=== PATIENT | female | born 1965 | race Two or more races ===

== ENCOUNTER 2021-12-12 11:46 | Emergency (ER) | payer MEDICAID, OTHER ==
[~2021-12-12] VITALS: Ht 162.6 cm; Wt 110.0 kg
[2021-12-12 12:42] LABS: Basophils # (auto) 0 10 ^3/uL (0-0.2); Basophils % (auto) 0.5 % (0.0-2.0); Eosinophils # (auto) 0.2 10 ^3/uL (0-0.8); Hematocrit 40.4 % (36.0-46.0); Hemoglobin 12.7 g/dL (12.2-16.2); Lymphocytes # (auto) 2.5 10 ^3/uL (0.4-5.4); Lymphocytes % (auto) 30.7 % (10.0-50.0); Mean Corpuscular Hemoglobin 27.5 pg (28.0-32.0); Mean Corpuscular Hgb Conc. 31.4 g/dL (32.0-36.0); Mean Corpuscular Volume 87.7 fL (80.0-100.0); Monocytes # (auto) 0.5 10 ^3/uL (0-1.3); Monocytes % (auto) 6.1 % (0.0-12.0); Neutrophils # (auto) 4.9 10 ^3/uL (1.6-8.6); Neutrophils % (auto) 60.7 % (37.0-80.0); Nucleated Red Blood Cells % 0.1 %; Red Cell Distribution Width 14.4 % (11.8-14.3)
[2021-12-12 13:05] LABS: Calcium 8.2 mg/dL (8.5-10.1)
[2021-12-12 13:18] LABS: BUN/Creatinine Ratio 15.2; Bilirubin, Total 0.3 mg/dL (0.2-1.0); Total Protein 6.3 g/dL (6.4-8.2)
[2021-12-12 14:28] VITALS: BP 138/80
== END 2021-12-12 14:37 | disposition home or self-care (01) ==
LOC: ER 11:46
DX: I16.0 Hypertensive urgency (principal); I10 Essential (primary) hypertension; E11.9 Type 2 diabetes mellitus without complications; E78.5 Hyperlipidemia, unspecified; R51.9 Headache, unspecified
CPT/HCPCS: 36415; 70450; 71046; 80053; 83735; 84484; 85025; 93005

== ENCOUNTER 2022-06-17 13:06 | Emergency (ER) | payer MEDICAID ==
[~2022-06-17] VITALS: Ht 144.8 cm; Wt 117.5 kg
[2022-06-17] MEDS ORDERED: KETOROLAC TROMETH 60MG/2ML VIAL IM ONE (14:30)
[2022-06-17] MEDS ORDERED: MAALOX PLUS or MAALOX 30 ML PO ONE (14:30)
[2022-06-17] MEDS ORDERED: IBUP800T26 PO (15:44)
[2022-06-17] MEDS ORDERED: HYDR-4902 PO (15:44)
[2022-06-17 15:57] VITALS: BP 140/65
== END 2022-06-17 15:59 | disposition home or self-care (01) ==
LOC: ER 13:06
DX: M47.816 Spondylosis without myelopathy or radiculopathy, lumbar region (principal); M47.814 Spondylosis without myelopathy or radiculopathy, thoracic region; I10 Essential (primary) hypertension; E11.9 Type 2 diabetes mellitus without complications; E78.5 Hyperlipidemia, unspecified; Z90.49 Acquired absence of other specified parts of digestive tract
CPT/HCPCS: 72070; 72100; 96372; 99284; J1885

== ENCOUNTER 2022-08-29 20:04 | Emergency (ER) | payer MEDICAID ==
[~2022-08-29] VITALS: Ht 134.6 cm; Wt 120.0 kg
[~2022-08-29 20:04] MED LIST: HYDR-4902 PO; IBUP-1455 PO
[2022-08-29 20:43] LABS: Basophils # (auto) 0.1 10 ^3/uL (0-0.2); Basophils % (auto) 0.8 % (0.0-2.0); Eosinophils # (auto) 0.3 10 ^3/uL (0-0.8); Hematocrit 40.5 % (36.0-46.0); Hemoglobin 13.3 g/dL (12.2-16.2); Lymphocytes # (auto) 3.8 10 ^3/uL (0.4-5.4); Lymphocytes % (auto) 30.6 % (10.0-50.0); Mean Corpuscular Hgb Conc. 32.9 g/dL (32.0-36.0); Mean Corpuscular Volume 88.1 fL (80.0-100.0); Monocytes # (auto) 0.9 10 ^3/uL (0-1.3); Neutrophils # (auto) 7.3 10 ^3/uL (1.6-8.6); Neutrophils % (auto) 59.6 % (37.0-80.0); Red Cell Distribution Width 13.8 % (11.8-14.3); White Blood Cell 12.3 10^3/uL (4.4-10.8)
[2022-08-29 20:49] LABS: Albumin 3.2 g/dL (3.4-5.0); Calcium 8.9 mg/dL (8.5-10.1); Potassium 4.5 mmol/L (3.5-5.1)
[2022-08-29 20:52] LABS: BUN/Creatinine Ratio 21.8 (10.0-20.0); Bilirubin, Total 0.4 mg/dL (0.2-1.0); Total Protein 6.9 g/dL (6.4-8.2)
[2022-08-30] MEDS ORDERED: MECLIZINE HCL 25 MG TAB PO ONE (00:15)
[2022-08-30] MEDS ORDERED: KETOROLAC TROMETH 60MG/2ML VIAL IM ONE (00:15)
[2022-08-30 00:33] LABS: Urine Bacteria FEW /hpf (None Seen); Urine Blood 1+ /uL (Negative); Urine WBC 6 /hpf (0 - 5)
[2022-08-30] MEDS ORDERED: CEPH500C PO (02:37)
[2022-08-30] MEDS ORDERED: HYDROcodone-ACET 10/325MG TAB PO ONE (03:45)
[2022-08-30 04:15] VITALS: BP 126/70
[2022-08-30] MEDS ORDERED: MECL1TAB42 PO (06:18)
== END 2022-08-30 04:20 | disposition home or self-care (01) ==
LOC: EDBD 20:04 → ER 20:07
DX: N39.0 Urinary tract infection, site not specified (principal); R42 Dizziness and giddiness; Z87.442 Personal history of urinary calculi
CPT/HCPCS: 36415; 70450; 71250; 74176; 80053; 81001; 83690; 84484; 85025; 93005; 96372; 99285; J1885; J8597

== ENCOUNTER 2023-04-24 12:59 | Emergency (ER) | payer MEDICAID ==
[~2023-04-24] VITALS: Ht 134.6 cm; Wt 110.4 kg
[~2023-04-24 12:59] MED LIST changes: +CEPH500C PO; +MECL1TAB42 PO
[2023-04-24 13:47] VITALS: BP 139/85; PULSE 82; RESP 18; TEMP 97.3; O2SAT 96
[2023-04-24] MEDS ORDERED: ACET-1080 PO (15:32)
== END 2023-04-24 15:36 | disposition home or self-care (01) ==
LOC: ER 12:59
DX: S29.9XXA Unspecified injury of thorax, initial encounter (principal); E11.9 Type 2 diabetes mellitus without complications; E78.5 Hyperlipidemia, unspecified; I10 Essential (primary) hypertension; W22.8XXA Striking against or struck by other objects, initial encounter; Y93.89 Activity, other specified; Y92.89 Other specified places as the place of occurrence of the external cause; Y99.8 Other external cause status
CPT/HCPCS: 76642

== ENCOUNTER 2024-02-11 11:21 | Inpatient (IN) | payer MEDICAID ==
[~2024-02-11] VITALS: Ht 134.6 cm; Wt 117.5 kg
[~2024-02-11 11:21] MED LIST changes: +ACET-1080 PO
--- NOTE | 2024-02-11 11:44 | ED.PDOC ---
HPI Comments 58 year old female presents to the ED with chief complaint of chest pain. Patient reports that she has been experiencing chest pain for the past week with associated radiation to the back and nausea. Patient relays that she has not been able to ambulate well independently since 2014 due to her legs locking up, needing to mobilize with an electric wheelchair. Patient denies any N/V/D, SOB, dizziness, weakness, headache, or fever. Chief Complaint: Chest Pain Time Seen by MD: 11:40 Primary Care Provider: STEFFEN Shen Notes: Nurses Notes, Medications, Allergies Allergies: Coded Allergies: NO KNOWN ALLERGIES (Unverified , 12/12/21) Home Meds Active Scripts Acetaminophen (Tylenol 8 Hour Arthritis) 650 Mg Tab, 650 MG PO TID, #24 TAB Prov:OSITO MAYER 04/24/23 Meclizine HCl (Meclizine 25) 25 Mg Tab, 25 MG PO Q6HP PRN, #20 TAB 0 Refills Prov:JOSE TERAN MD 08/30/22 Cephalexin Monohydrate (Cephalexin) 500 Mg Cap, 500 MG PO Q6HR for 5 Days, #20 MG Prov:JOSE TERAN MD 08/30/22 Hydrocodone-Acetaminophen (Hydrocodone Bitartrate/AC 5-325 mg) 1 Tab Tab, 1 TAB PO Q6HP PRN, #20 TAB Prov:CHERRI LEMONS PAC 06/17/22 Ibuprofen Micronized (Ibuprofen) 800 Mg Tab, 800 MG PO Q8HP PRN, #30 TAB Prov:CHERRI LEMONS PAC 06/17/22 Information Source: Patient Mode of Arrival: Ambulatory Severity: Moderate Timing: Hours Duration: Since onset Prehospital treatment: None Location: Chest (L) Radiation: Back Quality: Aching Onset: At Rest Cardiac Risk Factors: Hyperlipidemia, HTN, Diabetes PE Risk Factors: None Past Medical History PAST MEDICAL HISTORY: DM, High Lipids, HTN Surgical History: Appendectomy TECHNICAL SYSTEMS ARCHITECT History: No Pertinent TECHNICAL SYSTEMS ARCHITECT History Family History Family History: Reviewed,noncontributory to illness, Family hx of Cancer, Family hx of HTN Social History Smoker: Non-Smoker Alcohol: Denies ETOH Use Drugs: Denies Drug Use Lives In: Home Constitutional: denies: chills, diaphoresis, fatigue, fever, malaise, sweats, weakness, others EENTM: denies: blurred vision, double vision, ear bleeding, ear discharge, ear drainage, ear pain, ear ringing, eye pain, eye redness, hearing loss, mouth pain, mouth swelling, nasal discharge, nose bleeding, nose congestion, nose pain, photophobia, tearing, throat pain, throat swelling, voice changes, others Respiratory: denies: cough, hemoptysis, orthopnea, SOB at rest, shortness of breath, SOB with excertion, stridor, wheezing, others Cardiovascular: reports: chest pain; denies: dizzy spells, diaphoresis, Dyspnea on exertion, edema, irregular heart beat, left arm pain, lightheadedness, palpitations, PND, syncope, others Gastrointestinal: reports: nausea; denies: abdomen distended, abdominal pain, blood streaked bowels, constipated, diarrhea, dysphagia, difficulty swallowing, hematemesis, melena, poor appetite, poor fluid intake, rectal bleeding, rectal pain, vomiting, others Genitourinary: denies: abnormal vagina bleeding, burning, dyspareunia, dysuria, flank pain, frequency, hematuria, incontinence, pain, , vagina discharge, urgency, others Neurological: denies: dizziness, fainting, headache, left sided numbness, left sided weakness, numbness, paresthesia, pre-existing deficit, right sided numbness, right sided weakness, seizure, speech problems, tingling, tremors, weakness, others Musculoskeletal: denies: back pain, gout, joint pain, joint swelling, muscle pain, muscle stiffness, neck pain, others Integumetry: denies: bruises, change in color, change in hair/nails, dryness, laceration, lesions, lumps, rash, wounds, others Allergic/Immunocompromised: denies: Difficulty Healing, Frequent Infections, Hives, Itching, others Hematologic/Lymphatic: denies: anemia, blood clots, easy bleeding, easy bruising, swollen glands, others Endocrine: denies: excessive hunger, excessive sweating, excessive thirst, excessive urination, flushing, intolerance to cold, intolerance to heat, unexplained weight gain, unexplained weight loss, others Psychiatric: denies: anxiety, bipolar disorder, depression, hopeless, panic disorder, schizophrenia, sleepless, suicidal, others All Other Systems: Reviewed and Negative Physical Exam General Appearance: Moderate Distress, Normal HEENT: Normal ENT Inspection, PERRL/EOMI Neck: Full Range of Motion, Non-Tender, Normal, Normal Inspection Respiratory: Chest Non-Tender, Lungs Clear, No Accessory Muscle Use, No Respiratory Distress, Normal Breath Sounds Cardiovascular: No Edema, No JVD, No Murmur, No Gallop, Normal Peripheral Pulses, Regular Rate/Rhythm Breast Exam: Deferred Gastrointestinal: No Organomegaly, Non Tender, No Pulsatile Mass, Normal Bowel Sounds, Soft Genitalia: Deferred Pelvic: Deferred Rectal: Deferred Extremities: No calf tenderness, Normal capillary refill, Normal range of motion, Non-tender, Pedal edema Musculoskeletal : Apperance: Normal Neurologic: Alert Cerebellar Function: NOT DONE Reflexes: NOT DONE Skin: Dry, Normal Color, Warm Peripheral Pulses: 3+ Radial (R), 3+ Radial (L) Lymphatic: No Adenopathy EKG EKG : Pulse Rate (adult): 81 [place]: Normal Cardiac Rhythm: NSR Block: None Hypertrophy: None ST: Normal Comments Low Voltage. Was a procedure done? Was a procedure done?: No CP Differential Dx Differential Diagnosis: A-fib, A-Flutter, Angina, Anxiety / Panic Attack, Atrial Dysrhythmia, Electrolyte Disorder X-Ray, Labs, Meds, VS Vital Signs Date Time Temp Pulse Resp B/P (MAP) Pulse Ox O2 Delivery O2 Flow Rate FiO2 02/11/24 11:44 81 02/11/24 11:27 81 02/11/24 11:25 98.2 78 16 138/77 (97) 93 Lab Test 02/11/24 12:28 02/11/24 11:54 02/11/24 11:43 Range/Units Troponin I High Sensitivity Pending < 3 L </=34 ng/L White Blood Count 12.0 H 4.4-10.8 10^3/uL Red Blood Count 4.79 4.0-5.20 10^6/uL Hemoglobin 13.9 12.2-16.2 g/dL Hematocrit 43.1 36.0-46.0 % Mean Corpuscular Volume 90.0 80.0-100.0 fL Mean Corpuscular Hemoglobin 29.0 28.0-32.0 pg Mean Corpuscular Hemoglobin Concent 32.2 32.0-36.0 g/dL Red Cell Distribution Width 14.6 H 11.8-14.3 % Platelet Count 227 140-450 10^3/uL Mean Platelet Volume 11.0 H 6.9-10.8 fL Neutrophils (%) (Auto) 68.1 37.0-80.0 % Lymphocytes (%) (Auto) 22.9 10.0-50.0 % Monocytes (%) (Auto) 6.3 0.0-12.0 % Eosinophils (%) (Auto) 1.9 0.0-7.0 % Basophils (%) (Auto) 0.8 0.0-2.0 % Neutrophils # (Auto) 8.2 1.6-8.6 10 ^3/uL Lymphocytes # (Auto) 2.8 0.4-5.4 10 ^3/uL Monocytes # (Auto) 0.8 0-1.3 10 ^3/uL Eosinophils # (Auto) 0.2 0-0.8 10 ^3/uL Basophils # (Auto) 0.1 0-0.2 10 ^3/uL Nucleated Red Blood Cells 0.1 % Sodium Level 142 136-145 mmol/L Potassium Level 4.0 3.5-5.1 mmol/L Chloride Level 107 98-107 mmol/L Carbon Dioxide Level 28 20-31 mmol/L Anion Gap 7 5-15 Blood Urea Nitrogen 14 9-23 mg/dL Creatinine 0.85 0.550-1.02 mg/dL Glomerular Filtration Rate Calc 79 >90 mL/min BUN/Creatinine Ratio 16.5 10.0-20.0 Serum Glucose 241 H 74-106 mg/dL Calcium Level 9.8 8.7-10.4 mg/dL Urine Color Pending Urine Clarity Pending Urine pH Pending Urine Specific [place] Pending Urine Protein Pending Urine Ketones Pending Urine Blood Pending Urine Nitrite Pending Urine Bilirubin Pending Urine Urobilinogen Pending Urine Leukocyte Esterase Pending Urine RBC Pending Urine WBC Pending Urine Squamous Epithelial Cells Pending Urine Bacteria Pending Urine Glucose Pending Patient alert. She is in wheelchair. Came in because of chest pain. Continues to have chest pain. WBC slightly elevated. Possible urosepsis. Blood sugar elevated. Hemoglobin within normal limits. Establish intravenous access. Was given fluids pain Was given aspirin. Was given nitro. EKG reviewed does not show any acute changes. Reviewed her previous visit. Explained to the patient. Time of 1ST Reevaluation: 12:40 Reevaluation 1ST: Unchanged Patient Education/Counseling: Diagnosis, Treatment Family Education/Counseling: No Family Present Departure 1 Departure Time of Disposition: 12:46 Impression: Primary Impression: Chest pain of unknown etiology Additional Impression: Uncontrolled diabetes mellitus Qualified Codes: E13.65 - Other specified diabetes mellitus with hyperglyc emia Disposition: ADMITTED INPATIENT Admit to: Med Surg Condition: Guarded Critical Care Note Critical Care Time?: No Stability Stability form required: No Heart Score Heart Score: Heart Score Response (Comments) Value History Moderate Suspicious 1 EKG Normal 0 Age 45-64 1 Risk Factors No known risk factors 0 Troponin Normal limit 0 Total 2 I personally scribed for HERRERA MARQUEZ MD ([email or web address]) on 02/11/24 at 11:44. Electronically submitted by Bryce Sanchez ([email or web address]). HERRERA MARQUEZ MD Feb 11, 2024 11:44
[2024-02-11 12:23] LABS: Basophils # (auto) 0.1 10 ^3/uL (0-0.2); Basophils % (auto) 0.8 % (0.0-2.0); Eosinophils # (auto) 0.2 10 ^3/uL (0-0.8); Eosinophils % (auto) 1.9 % (0.0-7.0); Hematocrit 43.1 % (36.0-46.0); Hemoglobin 13.9 g/dL (12.2-16.2); Lymphocytes # (auto) 2.8 10 ^3/uL (0.4-5.4); Lymphocytes % (auto) 22.9 % (10.0-50.0); Mean Corpuscular Hgb Conc. 32.2 g/dL (32.0-36.0); Monocytes # (auto) 0.8 10 ^3/uL (0-1.3); Monocytes % (auto) 6.3 % (0.0-12.0); Neutrophils # (auto) 8.2 10 ^3/uL (1.6-8.6); Neutrophils % (auto) 68.1 % (37.0-80.0); Nucleated Red Blood Cells % 0.1 %; Platelet Count (auto) 227 10^3/uL (140-450); Red Blood Cells 4.79 10^6/uL (4.0-5.20); Red Cell Distribution Width 14.6 % (11.8-14.3)
[2024-02-11 12:24] LABS: Chloride 107 mmol/L (98-107); Sodium 142 mmol/L (136-145)
[2024-02-11 12:25] LABS: Anion Gap 7 (5-15); Calcium 9.8 mg/dL (8.7-10.4); Carbon Dioxide 28 mmol/L (20-31)
[2024-02-11 12:30] LABS: BUN/Creatinine Ratio 16.5 (10.0-20.0); Blood Urea Nitrogen 14 mg/dL (9-23); Glucose 241 mg/dL (74-106)
[2024-02-11 12:49] LABS: Urine Bacteria FEW /hpf (None Seen); Urine Blood Negative /uL (Negative); Urine Clarity Turbid (Clear); Urine Color Yellow (Yellow); Urine Mucus FEW (None Seen); Urine Protein, UAD TRACE (Negative); Urine Specific Gravity 1.028 (1.001-1.035); Urine Urobilinogen 2 mg/dL (Negative); Urine WBC 5 /hpf (0 - 5); Urine pH 5.5 (5.0-9.0)
--- NOTE | 2024-02-11 18:48 | ECG ---
[facility] Test Date: 2024-02-11 Test Time: 12:24:41 Pat Name: RON BLACKWELL Department: ED Room: Gender: F Galley Stripper: JORGE : 1965 Requested By: HERRERA MARQUEZ Order Number: [id number] Reading MD: Measurements Intervals [place] Rate: 81 P: 33 MO: 125 QRS: -41 QRSD: 82 T: 25 QT: 379 QTc: 440 Interpretive Statements Sinus rhythm Abnormal R-wave progression, late transition Inferior infarct, old Please click the below link to view image of tracing.
[2024-02-11 20:32] VITALS: PULSE 78; RESP 18; O2SAT 92
[2024-02-11] MEDS: NITROGLYCERIN 0.4 MG SL TAB SL ONE (20:52)
[2024-02-11] MEDS: ASPirin 325 MG TAB PO ONE (20:53)
[2024-02-11] MEDS ORDERED: HYDROcodone-ACET 5/325MG TAB PO PRN (21:00)
[2024-02-11] MEDS ORDERED: ONDANSETRON HCL 4 MG/2 ML VIAL IV PRN (21:00)
[2024-02-11] MEDS ORDERED: MORPHINE SULFATE INJ 2 MG/ml SYRG IV PRN (21:00)
[2024-02-11] MEDS ORDERED: NITROGLYCERIN 0.4 MG SL TAB SL PRN (21:00)
[2024-02-11] MEDS ORDERED: DEXTROSE (50%) 50ML SYRG IV PRN ×2 (22:15→23:45)
--- NOTE | 2024-02-11 22:24 | DVHHPRES ---
History of Present Illness Resident Creating Document: DAVE BHATIA RESIDENT History of Present Illness This is a 58-year-old female with past medical history of hypertension, hyperlipidemia, type 2 diabetes mellitus, osteoporosis, peripheral neuropathy presented to the ED with a chief complaint of chest pain since morning prior to this admission. The patient stated that intermittent chest pain started last week but today after breakfast she felt continous sharp stabbing chest pain beneath the right breast fold 8/10, radiated to the right shoulder and also to the left arm and associated with shortness of breath and dizziness. She also mentioned burning sensation during urination and also high color and sometimes blood clot in the urine. The patient denies abdominal pain, nausea, vomiting, diaphoresis, sick contact, recent traveling or any change in bowel habit. PCP: Past Medical History Hypertension, hyperlipidemia, type 2 diabetes mellitus, osteoporosis, peripheral neuropathy Past Surgical History , appendectomy and oophorectomy Family History No significant family history Past Social History Nonsmoker, occasional drinker and never tried any drugs Lives alone. Review of Systems Constitutional: No: Fever, Chills, Sweats, Weakness, Malaise, Other Eyes: No: Pain, Vision change, Conjunctivae inflammation, Eyelid inflammation, Other, Redness ENT: No: Ear pain, Ear discharge, Nose pain, Nose discharge, Nose congestion, Mouth pain, Mouth swelling, Throat pain, Throat swelling, Other Respiratory: Shortness of breath; No: Cough, Dry, SOB with excertion, Wheezing, Hemoptysis, Pleuritic Pain, Sputum, Wheezing, Other Cardiovascular: Chest Pain, Lt Headedness; No: Palpitations, Orthopnea, Paroxysmal Noc. Dyspnea, Edema, Other Gastrointestinal: No: Nausea, Vomiting, Abdominal Pain, Diarrhea, Constipation, Melena, Hematochezia, Other Genitourinary: Dysuria; No Frequency, No Incontinence, No Hematuria, No Retention, No Other Musculoskeletal: No: other, neck pain, shoulder pain, arm pain, back pain, hand pain, leg pain, foot pain Skin: No: Rash, Lesions, Jaundice, Bruising, Other Neurological: No: Weakness, Numbness, Incoordination, Change in speech, Confusion, Seizures, Other Allergies: Coded Allergies: Morphine (Verified Allergy, Severe, 02/12/24) Medications Current Medications Medications Dose Ordered Sig/Christi Route Start Time Stop Time Status Last Admin Dose Admin Sodium Chloride 10 ml Q8HR IV 02/11/24 22:00 Acetaminophen/ Hydrocodone Bitart 1 tab Q4HP PRN PO 02/11/24 21:00 Ondansetron HCl 4 mg Q4HP PRN IV 02/11/24 21:00 Nitroglycerin 0.4 mg Q5MINP PRN SL 02/11/24 21:00 Morphine Sulfate 2 mg Q30M PRN IV 02/11/24 21:00 Ceftriaxone Sodium 50 ml @ 100 mls/hr DAILY@2200 IV 02/12/24 22:00 Diagnostic Test (Pha) 1 strip ACHS 02/12/24 07:00 Insulin Human Regular ACHS SC 02/12/24 07:00 Dextrose 50 ml UD PRN IV 02/11/24 22:15 Exam Vital Signs Vital Signs Date Time Temp Pulse Resp B/P (MAP) Pulse Ox O2 Delivery O2 Flow Rate FiO2 02/11/24 20:52 135/88 02/11/24 20:32 78 18 92 Room Air* 0 21 02/11/24 20:32 98.9 98.9 Exam Physical examination: General Appearance: Alert, Oriented X3, Cooperative, No acute distress HEENT: Atraumatic, PERRLA, EOMI, Mucous membrane moist/pink Respiratory: Clear to auscultation, Normal air movement Cardiovascular: Regular rate, Normal S1, Normal S2, No murmurs, no chest wall tenderness Abdominal: Normal bowel sounds, Soft, No tenderness, No hepatospenomegaly, No masses Extremities: No clubbing, No cyanosis, No edema, Normal pulses, No tenderness/swelling Skin: No rashes, No breakdown, No significant lesion Neuro: Wheelchair-bound, Normal speech, Strength at 5/5 X4 ext, Normal tone, Sensation intact, grossly intact cranial nerves. Psych/Mental Status: Mental status NL, Mood NL Labs/Xrays Labs Test 02/11/24 14:31 02/11/24 11:54 02/11/24 11:43 Range/Units Troponin I High Sensitivity < 3 L </=34 ng/L White Blood Count 12.0 H 4.4-10.8 10^3/uL Red Blood Count 4.79 4.0-5.20 10^6/uL Hemoglobin 13.9 12.2-16.2 g/dL Hematocrit 43.1 36.0-46.0 % Mean Corpuscular Volume 90.0 80.0-100.0 fL Mean Corpuscular Hemoglobin 29.0 28.0-32.0 pg Mean Corpuscular Hemoglobin Concent 32.2 32.0-36.0 g/dL Red Cell Distribution Width 14.6 H 11.8-14.3 % Platelet Count 227 140-450 10^3/uL Mean Platelet Volume 11.0 H 6.9-10.8 fL Neutrophils (%) (Auto) 68.1 37.0-80.0 % Lymphocytes (%) (Auto) 22.9 10.0-50.0 % Monocytes (%) (Auto) 6.3 0.0-12.0 % Eosinophils (%) (Auto) 1.9 0.0-7.0 % Basophils (%) (Auto) 0.8 0.0-2.0 % Neutrophils # (Auto) 8.2 1.6-8.6 10 ^3/uL Lymphocytes # (Auto) 2.8 0.4-5.4 10 ^3/uL Monocytes # (Auto) 0.8 0-1.3 10 ^3/uL Eosinophils # (Auto) 0.2 0-0.8 10 ^3/uL Basophils # (Auto) 0.1 0-0.2 10 ^3/uL Nucleated Red Blood Cells 0.1 % Sodium Level 142 136-145 mmol/L Potassium Level 4.0 3.5-5.1 mmol/L Chloride Level 107 98-107 mmol/L Carbon Dioxide Level 28 20-31 mmol/L Anion Gap 7 5-15 Blood Urea Nitrogen 14 9-23 mg/dL Creatinine 0.85 0.550-1.02 mg/dL Glomerular Filtration Rate Calc 79 >90 mL/min BUN/Creatinine Ratio 16.5 10.0-20.0 Serum Glucose 241 H 74-106 mg/dL Calcium Level 9.8 8.7-10.4 mg/dL Urine Color Yellow Yellow Urine Clarity Turbid H Clear Urine pH 5.5 5.0-9.0 Urine Specific [place] 1.028 1.001-1.035 Urine Protein Trace H Negative Urine Ketones Negative Negative Urine Blood Negative Negative /uL Urine Nitrite Negative Negative Urine Bilirubin Negative Negative Urine Urobilinogen 2 H Negative mg/dL Urine Leukocyte Esterase 3+ Negative /uL Urine RBC 3 0 - 4 /hpf Urine WBC 5 0 - 5 /hpf Urine Squamous Epithelial Cells Mod <5 /hpf Urine Bacteria Few H None Seen /hpf Urine Mucus Few None Seen Urine Glucose Normal Normal mg/dL Assessment/Plan Assessment/Plan Assessment and plan: # Atypical chest pain - EKG revealed sinus rhythm, poor R-wave progression and old inferior infarct and troponins x3 are unremarkable - Given loading dose of aspirin and nitroglycerin - Ordered echo. # Acute cystitis - UA consistent with UTI with elevated WBC count - Ordered urine bacterial culture - IV ceftriaxone 1 g daily # Uncontrolled type 2 diabetes mellitus, HbA1C 8.5 - Moderate sliding scale of insulin # DVT prophylaxis - Lovenox 40 mg sc daily Goal of care discussed with the patient for more than 20 minutes full code Plan of treatment discussed with Dr. Zuniga Plan discussed with: Patient, Other My Orders Orders - DAVE BHATIA RESIDENT Procedure Category Date Status Time Admit ADMIT 02/11/24 Transmitted 20:47 Code Status CODE 02/11/24 Transmitted 20:47 2 Gm Sodium Diet DIET 02/12/24 Transmitted Breakfast Sodium Chloride Lock PHA 02/11/24 In Process (Saline Lock Ns) 22:00 Hydrocodone-Acet PHA 02/11/24 In Process 5/325mg Tab ([place] 21:00 Ondansetron Hcl PHA 02/11/24 In Process (Zofran) 21:00 Complete Blood Count LAB 02/12/24 Verified 04:00 Comprehensive LAB 02/12/24 Verified Metabolic Panel 04:00 Nitroglycerin PHA 02/11/24 In Process Sublingual (Ntrostat 21:00 Morphine Sulfate PHA 02/11/24 In Process Injection 21:00 Oxygen By Nasal RT 02/11/24 Transmitted Cannula 20:47 Stat Ekg For Chest KING 02/11/24 In Process Pain 20:47 Notify Md Of Changes KING 02/11/24 In Process From Base 20:47 Tappet Adjuster For KING 02/11/24 In Process 24 Hours 20:47 Emergency Dysrhythmia KING 02/11/24 In Process Protocol 20:47 Rhythm Strips Once KING 02/11/24 In Process Every Shift 20:47 Urine Bacterial MAYCO 02/11/24 Uncollected Culture 22:06 Hemoglobin A1c LAB 02/11/24 In Process 22:06 Thyroid Stimulating LAB 02/11/24 In Process Hormone 22:06 Vitamin B12 LAB 02/11/24 In Process 22:06 Vitamin D, 25-Hydroxy LAB 02/11/24 In Process 22:06 Ceftriaxone 1gm/50ml PHA 02/12/24 In Process D5w (Rocephin) 22:00 Ceftriaxone 1gm/50ml PHA 02/11/24 In Process D5w (Rocephin) 22:15 Glucose Blood PHA 02/12/24 In Process (Accu-Chek Comfort 07:00 Insulin R (Human) PHA 02/12/24 In Process (Insulin R) 07:00 Dextrose 50% Syringe PHA 02/11/24 In Process 22:15 Date of Service: Feb 11, 2024 Billing Provider: TAYLOR ZUNIGA MD Common Visit Codes: [id number] INP/OBS CARE (HIGH) Secondary Visit Codes: [id number] CARE PLAN 30 MINUTES DAVE BHATIA RESIDENT Feb 11, 2024 22:24 TAYLOR ZUNIGA MD Feb 12, 2024 13:40
[2024-02-11] MEDS: SODIUM CHLOR 0.9% PF (SALINE LOCK) 10ML VIAL/SYR IV SCH (22:55)
[2024-02-11] MEDS: cefTRIAXone 1GM/50ML D5W 50 ML IV ONE (23:12)
[2024-02-12] MEDS: ACCU-CHEK COMFORT CURVE STRIP VI SCH ×2 (06:12→07:00)
[2024-02-12 06:41] LABS: Basophils # (auto) 0.1 10 ^3/uL (0-0.2); Basophils % (auto) 0.7 % (0.0-2.0); Eosinophils # (auto) 0.3 10 ^3/uL (0-0.8); Eosinophils % (auto) 2.5 % (0.0-7.0); Hematocrit 42.1 % (36.0-46.0); Hemoglobin 13.7 g/dL (12.2-16.2); Lymphocytes % (auto) 31.9 % (10.0-50.0); Mean Corpuscular Hemoglobin 29.2 pg (28.0-32.0); Mean Corpuscular Hgb Conc. 32.6 g/dL (32.0-36.0); Mean Corpuscular Volume 89.6 fL (80.0-100.0); Monocytes # (auto) 0.9 10 ^3/uL (0-1.3); Monocytes % (auto) 7.4 % (0.0-12.0); Neutrophils # (auto) 7.3 10 ^3/uL (1.6-8.6); Neutrophils % (auto) 57.5 % (37.0-80.0); Nucleated Red Blood Cells % 0.1 %; Platelet Count (auto) 249 10^3/uL (140-450); Red Cell Distribution Width 14.4 % (11.8-14.3); White Blood Cell 12.7 10^3/uL (4.4-10.8)
[2024-02-12 06:43] LABS: Alanine Aminotransferase 28 U/L (7-40); Albumin 4.3 g/dL (3.2-4.8); Alkaline Phosphatase 121 U/L (46-116); Anion Gap 11 (5-15); Aspartate Aminotransferase 9 U/L (13-40); BUN/Creatinine Ratio 22.2 (10.0-20.0); Bilirubin, Total 0.4 mg/dL (0.2-1.0); Blood Urea Nitrogen 20 mg/dL (9-23); Carbon Dioxide 24 mmol/L (20-31); Chloride 106 mmol/L (98-107); Glucose 215 mg/dL (74-106); Potassium 3.8 mmol/L (3.5-5.1); Sodium 141 mmol/L (136-145)
[2024-02-12 06:44] LABS: Total Protein 7.2 g/dL (5.7-8.2)
[2024-02-12] MEDS ORDERED: InsuLIN REG 1unit/0.01ml Soln (100units/ml) SC SCH (07:00)
[2024-02-12] MEDS: InsuLIN REG 1unit/0.01ml Soln (100units/ml) SC SCH ×2 (07:13→23:46)
--- NOTE | 2024-02-12 07:43 | DVH ---
CLINICAL INFORMATION: 58 years old, Female; Chest Pain. TECHNIQUE: Single AP portable chest radiograph was obtained. COMPARISON: Chest radiographs dated 12/12/2021. Correlation also made to CT of the chest, abdomen, a nd pelvis dated 08/30/2022. FINDINGS: Lungs: Mild atelectasis in the lung bases. No focal consolidation. Pneumothorax or pleural effusion. Cardiac: Heart size is within normal limits. Pulmonary vasculature: Unremarkable. Mediastinum/parminder: Unremarkable. Bones: No acute osseous abnormality identified. Other: No other significant findings. IMPRESSION: No evidence of acute disease in the chest.
[2024-02-12 11:30] VITALS: PULSE 80; RESP 16; O2SAT 94
--- NOTE | 2024-02-12 11:59 | DVHPNRES ---
Progress Note Date Seen: Feb 12, 2024 Resident Creating Document: TOMMY BEAVERS RESIDENT Medical Necessity Reason Pt with a Central, PICC or Fol: No Subjective Review of Systems Patient is 58 years old female with past medical history of hypertension, type 2 diabetes mellitus, morbid obesity, osteoporosis, carpal tunnel syndrome, neuropathy, chronic body ache came with a complaint of chest pain. As per patient patient started having chest pain, central in nature, sharp, 10/10 radiating to the back, aggravated with the breathing started 1 day before. Patient also reported feeling some short of breath associated with the chest pain. Patient also reports having some running nose yesterday but no running nose today. Patient denied any fever, palpitation,cough, leg swelling, acute joint pain or swelling, dizziness or dysarthria. Initial lab workup revealed leukocytosis WBC 12, D-dimer 0.5, blood sugar 241, HGB A1c 8.5, alkaline phosphatase 121, urinalysis positive for UTI, leukocyte esterase 3+, WBC 5, bacteria few. Troponin was nonsignificant. Chest x-ray no evidence of acute disease in the chest. PMH-hypertension, type 2 diabetes mellitus, morbid obesity, osteoporosis, carpal tunnel syndrome, neuropathy, chronic body ache PSH- , history of right ovary removal, appendectomy Allergy- NKDA Personal History/ Social History- lives with a caregiver, nonsmoker, nonalcoholic , no drug abuse as per patient Patient was seen today at the bedside. Patient reports chest pain is better today Cardiovascular- deny acute chest pain or shortness of breath or cough or palpitation Respiratory- denies cough or short of breath or wheezing Gastrointestinal- denies any rectal bleeding, nausea or vomiting Musculoskeletal-denies acute joint swelling or tenderness or redness Neurological- denies acute dysarthria, dysphagia, change in vision Psychiatry- denies depression or SI or HI Skin- denies acute rash or purpura Patient was seen today for clinical evaluation. Labs and chart reviewed. Patient reports chest pain has decreased today. Patient's echo 2D pending. Ordered cardiology consult for further evaluation and care. Patient in room air and no acute respiratory distress noted. Objective vital signs Vital Sign Date Time Temp Pulse Resp B/P (MAP) Pulse Ox O2 Delivery O2 Flow Rate FiO2 02/12/24 11:30 80 16 94 Room Air* 0 21 02/12/24 10:51 98.6 136/82 (100) 98.6 Total Intake and Output 02/11/24 02/11/24 02/12/24 15:00 23:00 07:00 Intake Total 50 ml Balance 50 ml medications Current Medications Medications Dose Ordered Sig/Christi Route Start Time Stop Time Status Last Admin Dose Admin Sodium Chloride 10 ml Q8HR IV 02/11/24 22:00 02/12/24 06:08 10 ML Acetaminophen/ Hydrocodone Bitart 1 tab Q4HP PRN PO 02/11/24 21:00 Ondansetron HCl 4 mg Q4HP PRN IV 02/11/24 21:00 Nitroglycerin 0.4 mg Q5MINP PRN SL 02/11/24 21:00 Morphine Sulfate 2 mg Q30M PRN IV 02/11/24 21:00 Ceftriaxone Sodium 50 ml @ 100 mls/hr DAILY@2200 IV 02/12/24 22:00 Diagnostic Test (Pha) 1 strip ACHS 02/12/24 07:00 02/12/24 11:39 1 STRIP Dextrose 50 ml UD PRN IV 02/11/24 22:15 Diagnostic Test (Pha) 1 strip ACHS 02/12/24 07:00 Insulin Human Regular HS SC 02/12/24 22:00 Insulin Human Regular AC SC 02/12/24 07:00 02/12/24 07:13 3 UNITS Dextrose 50 ml UD PRN IV 02/11/24 23:45 Examination General examination- awake, alert, oriented, conversant HEENT- PEERLA, no acute nasal discharge Cardiovascular- S1-S2 audible, rate and rhythm regular, no murmur Respiratory- CTAB, no wheeze or rhonchi Gastrointestinal-nontender, bowel sound+. Nondistended Musculoskeletal-no acute joint swelling or tenderness or redness# Lower extremity- no leg edema Neurological- cranial nerves intact, no acute dysarthria or dysphagia Psychiatry- denies depression or SI or HI Skin- no acute rash or purpura laboratory and microbiology Laboratory Tests 02/12/24 05:45 Test 02/12/24 05:45 Range/Units Serum Glucose 215 H 74-106 mg/dL Problem List/Assessment/Plan Problem List/Assessment/Plan #Acute chest pain likely due to ACS/musculoskeletal -chest wall tenderness on palpation positive -troponin nonsignificant -no acute ST elevation on EKG -D-dimer 0.5 -pending echo 2D -ordered cardiology consult for further evaluation and care -continue aspirin 81 mg p.o. daily -atorvastatin 40 mg p.o. q.h.s. -nitroglycerin p.r.n. # pleuritic chest pain likely due to ?musculoskeletal --chest wall tenderness on palpation positive -CXR no acute abnormality noted, rule out pneumonia --troponin nonsignificant -no acute ST elevation on EKG -D-dimer 0.5 -pending echo 2D -ordered cardiology consult for further evaluation and care -continue aspirin 81 mg p.o. daily -atorvastatin 40 mg p.o. q.h.s. -nitroglycerin p.r.n. # UTI -urinalysis-leukocyte esterase 3+, WBC 5, few bacteria -continue ceftriaxone 1 g IV daily -pending uterine CS # hypertension -monitor blood pressure -continue IV hydralazine 10 mg q.6h p.r.n. # diabetes mellitus type 2 -HGB A1c 8.5 -continue insulin sliding scale # neuropathy -continue with current pain medication # osteoporosis -follow up outpatient Goals of care/advance care planning; FULL CODE; discussed with the patient PUD prophylaxis: DVT prophylaxis: Lovenox Plan discussed with Dr. Márquez,,, nursing staff, patient Total time spent on patient evaluation, chart review, assessment and plan, discussion discussion >20 minutes Plan discussed with: Patient Plan discussed with: Patient, Other (RN) My Orders My Orders Orders - TOMMY BEAVERS Procedure Category Date Status Time * Cardiology Consult CONS 02/12/24 Transmitted 11:35 Complete Blood Count LAB 02/13/24 Verified 04:00 Basic Metabolic Panel LAB 02/13/24 Verified 04:00 Magnesium LAB 02/13/24 Verified 04:00 Lipid Panel LAB 02/13/24 Verified 04:00 Date of Service: Feb 12, 2024 Billing Provider: WOODROW MÁRQUEZ MD Common Visit Codes: [id number] INP/OBS CARE(HIGH) Secondary Visit Codes: [id number] CARE PLAN 30 MINUTES TOMMY BEAVERS Feb 12, 2024 11:59 WOODROW MÁRQUEZ MD Feb 14, 2024 11:36
[2024-02-12] MEDS: ASPirin 81 mg TAB PO ONE (13:14)
[2024-02-12] MEDS: ENOXAPARIN SOD 40 MG/0.4 ML SYRINGE SC ONE (13:14)
[2024-02-12 13:40] VITALS: BP 138/79; PULSE 82; RESP 18; TEMP 97.9; O2SAT 93
[2024-02-12 15:47] VITALS: BP 138/79; PULSE 82; RESP 18; TEMP 97.9; O2SAT 93
[2024-02-12] MEDS ORDERED: hydrALAZINE HCL 20 MG/ML VL IV PRN (17:15)
--- NOTE | 2024-02-12 17:41 | DVHINCON2 ---
Date Seen: Feb 12, 2024 Referring Physician MD Florencio Reason for Consultation Chest pain History of Present Illness This is a 58-year-old female who presented to the emergency room with a chief complaint of chest pain x2 events. Describes her chest pain as right-sided, radiating to the substernal area, sharp in nature, and worse with movement. She also complains of left shoulder pain which was worse with extension of the extremity. Denies shortness of breath, palpitations, diaphoresis, dizziness, or syncopal events. She underwent a 12 lead electrocardiogram revealing a sinus rhythm with no discernible ischemia. Serial troponin levels are negative. Significant medical history includes insulin-dependent diabetes mellitus, hypertension, dyslipidemia, wheelchair-bound status secondary to knee injury, and morbid obesity. Past Medical History Past medical history reviewed. No other significant than mentioned above. Past Surgical History C-sections x2 Appendectomy Right oophorectomy Family History Family history reviewed. Social History Denies the use of illicit drugs, alcohol, or tobacco use. Allergies: Coded Allergies: Morphine (Verified Allergy, Severe, 02/12/24) Home Meds Active Scripts Acetaminophen (Tylenol 8 Hour Arthritis) 650 Mg Tab, 650 MG PO TID, #24 TAB Prov:OSITO MAYER 04/24/23 Meclizine HCl (Meclizine 25) 25 Mg Tab, 25 MG PO Q6HP PRN, #20 TAB 0 Refills Prov:JOSE TERAN MD 08/30/22 Cephalexin Monohydrate (Cephalexin) 500 Mg Cap, 500 MG PO Q6HR for 5 Days, #20 MG Prov:JOSE TERAN MD 08/30/22 Hydrocodone-Acetaminophen (Hydrocodone Bitartrate/AC 5-325 mg) 1 Tab Tab, 1 TAB PO Q6HP PRN, #20 TAB Prov:CHERRI LEMONS PAC 06/17/22 Ibuprofen Micronized (Ibuprofen) 800 Mg Tab, 800 MG PO Q8HP PRN, #30 TAB Prov:CHERRI LEMONS PAC 06/17/22 Home Meds Home medications reviewed. Current Medications Current Medications Medications (Trade) Dose Ordered Sig/Christi Route PRN Reason Start Time Stop Time Status Last Admin Sodium Chloride (Saline Lock Ns) 10 ml Q8HR IV 02/11/24 22:00 02/12/24 14:00 Acetaminophen/ Hydrocodone Bitart (Saunemin 5/325MG Tab) 1 tab Q4HP PRN PO MODERATE PAIN (4-6 PAIN SCALE) 02/11/24 21:00 02/12/24 12:25 DC Ondansetron HCl (Zofran) 4 mg Q4HP PRN IV NAUSEA / VOMITING 02/11/24 21:00 Nitroglycerin (Ntrostat Sublingual) 0.4 mg Q5MINP PRN SL FOR CHEST PAIN 02/11/24 21:00 Morphine Sulfate 2 mg Q30M PRN IV FOR CHEST PAIN 02/11/24 21:00 Hold Ceftriaxone Sodium 50 ml @ 100 mls/hr DAILY@2200 IV 02/12/24 22:00 Diagnostic Test (Pha) (Accu-Chek Comfort Curve T) 1 strip ACHS 02/12/24 07:00 02/12/24 12:17 DC 02/12/24 11:39 Insulin Human Regular (InsuLIN R) ACHS SC 02/12/24 07:00 02/11/24 23:34 DC Dextrose 50 ml UD PRN IV Blood Sugar LESS THAN 60 02/11/24 22:15 02/12/24 12:17 DC Diagnostic Test (Pha) (Accu-Chek Comfort Curve T) 1 strip ACHS 02/12/24 07:00 02/12/24 17:09 Insulin Human Regular (InsuLIN R) HS SC 02/12/24 22:00 Insulin Human Regular (InsuLIN R) AC SC 02/12/24 07:00 02/12/24 17:12 Dextrose 50 ml UD PRN IV Blood Sugar LESS THAN 60 02/11/24 23:45 Aspirin 81 mg DAILY PO 02/13/24 10:00 Enoxaparin Sodium (Lovenox) 40 mg DAILY SC 02/13/24 10:00 Atorvastatin Calcium (Lipitor) 40 mg HS PO 02/12/24 22:00 Hold Acetaminophen/ Hydrocodone Bitart (Saunemin 5/325MG Tab) 1 tab Q4HP PRN PO MODERATE PAIN (4-6 PAIN SCALE) 02/12/24 12:30 Hydralazine HCl (Apresoline Injection) 10 mg Q6HP PRN IV SBP>150 02/12/24 17:15 Review of Systems Constitutional: No symptom reported Ears, Nose, & Throat: No symptom reported Eyes: No symptom reported Neurological: No symptoms reported Pulmonary/Respiratory: No symptom reported Cardiovascular: No symptom reported Gastrointestinal: No symptom reported Genitourinary: No symptom reported Musculoskeletal: Chest wall pain Skin: No symptom reported Psychiatric: No symptom reported Endocrine: No symptom reported Hemotologic/Lymphatic: No symptom reported Vital Signs Vital Signs Date Time Temp Pulse Resp B/P (MAP) Pulse Ox O2 Delivery O2 Flow Rate FiO2 02/12/24 13:40 97.9 82 18 138/79 (98) 93 97.9 02/12/24 11:30 Room Air* 0 21 Physical Exam General Appearance: Cooperative. Well developed. Morbidly obese. In no acute distress Head Exam: Normal inspection Neck Exam: Normal inspection. Non-tender. Normal alignment Pulmonary/Respiratory: Chest non-tender. Clear bilateral breath sounds Cardiovascular/Chest: Regular rate and rhythm. S1, S2. Sinus rhythm with no discernible ischemia. No murmurs. No JVD. Peripheral Pulses: 2+ Radial (R). 2+ Radial (L). 2+ Pedal (R). 2+ Pedal (L) Abdominal Exam: Normal bowel sounds. Soft. Nontender. No hepatospenomegaly. No masses Ankle Exam: Negative ankle edema Lower extremities: Negative lower extremity edema Neuro/Mental Status: A&O x4. Coherent Thoughts/Psych: Normal thought pattern. Appropriate mood and affect. Good judgement and insight Appearance: In no acute distress Skin Exam: Normal inspection. Normal color. Warm. Dry Labs/Diagnostic Data Labs Test 02/12/24 16:54 02/12/24 05:45 02/11/24 14:31 02/11/24 11:54 Range/Units POC Glucose 135 H 70-106 mg/dl White Blood Count 12.7 H 4.4-10.8 10^3/uL Red Blood Count 4.70 4.0-5.20 10^6/uL Hemoglobin 13.7 12.2-16.2 g/dL Hematocrit 42.1 36.0-46.0 % Mean Corpuscular Volume 89.6 80.0-100.0 fL Mean Corpuscular Hemoglobin 29.2 28.0-32.0 pg Mean Corpuscular Hemoglobin Concent 32.6 32.0-36.0 g/dL Red Cell Distribution Width 14.4 H 11.8-14.3 % Platelet Count 249 140-450 10^3/uL Mean Platelet Volume 11.3 H 6.9-10.8 fL Neutrophils (%) (Auto) 57.5 37.0-80.0 % Lymphocytes (%) (Auto) 31.9 10.0-50.0 % Monocytes (%) (Auto) 7.4 0.0-12.0 % Eosinophils (%) (Auto) 2.5 0.0-7.0 % Basophils (%) (Auto) 0.7 0.0-2.0 % Neutrophils # (Auto) 7.3 1.6-8.6 10 ^3/uL Lymphocytes # (Auto) 4.0 0.4-5.4 10 ^3/uL Monocytes # (Auto) 0.9 0-1.3 10 ^3/uL Eosinophils # (Auto) 0.3 0-0.8 10 ^3/uL Basophils # (Auto) 0.1 0-0.2 10 ^3/uL Nucleated Red Blood Cells 0.1 % D-Dimer, Quantitative 0.54 H 0.0-0.49 mg/L FEU Sodium Level 141 136-145 mmol/L Potassium Level 3.8 3.5-5.1 mmol/L Chloride Level 106 98-107 mmol/L Carbon Dioxide Level 24 20-31 mmol/L Anion Gap 11 5-15 Blood Urea Nitrogen 20 9-23 mg/dL Creatinine 0.90 0.550-1.02 mg/dL Glomerular Filtration Rate Calc 74 >90 mL/min BUN/Creatinine Ratio 22.2 H 10.0-20.0 Serum Glucose 215 H 74-106 mg/dL Calcium Level 10.0 8.7-10.4 mg/dL Total Bilirubin 0.4 0.2-1.0 mg/dL Aspartate Amino Transferase (AST) 9 L 13-40 U/L Alanine Aminotransferase (ALT) 28 7-40 U/L Alkaline Phosphatase 121 H 46-116 U/L B-Type Natriuretic Peptide 3.25 0-100 pg/mL Total Protein 7.2 5.7-8.2 g/dL Albumin 4.3 3.2-4.8 g/dL Troponin I High Sensitivity < 3 L </=34 ng/L Hemoglobin A1c 8.5 H <5.7 % A1C Vitamin B12 Level 405 211-911 pg/mL Vitamin D 25-Hydroxy 33.3 30.0-100 ng/mL Thyroid Stimulating Hormone (TSH) 1.02 0.55-4.78 uIU/mL Test 02/11/24 11:43 Range/Units Urine Color Yellow Yellow Urine Clarity Turbid H Clear Urine pH 5.5 5.0-9.0 Urine Specific [place] 1.028 1.001-1.035 Urine Protein Trace H Negative Urine Ketones Negative Negative Urine Blood Negative Negative /uL Urine Nitrite Negative Negative Urine Bilirubin Negative Negative Urine Urobilinogen 2 H Negative mg/dL Urine Leukocyte Esterase 3+ Negative /uL Urine RBC 3 0 - 4 /hpf Urine WBC 5 0 - 5 /hpf Urine Squamous Epithelial Cells Mod <5 /hpf Urine Bacteria Few H None Seen /hpf Urine Mucus Few None Seen Urine Glucose Normal Normal mg/dL Assessment Noncardiac chest pain, likely musculoskeletal Hypertension Dyslipidemia Insulin-dependent diabetes mellitus Morbid obesity Plan/Recommendation (Dr. Soliz) The patient presents with noncardiac chest pain which is sharp in nature and exacerbated by movement. We will continue further cardiac evaluation with a transthoracic echocardiogram to rule out structural heart disease. She was strongly counseled on weight loss, diet, and exercise as tolerated given her morbid obesity. In the setting of an unremarkable echocardiogram, there is no further cardiac workup indicated at this time. Consider an outpatient stress test if deemed to be necessary. Thank you for allowing us to participate in this patient's care. Please call if you have any questions or concerns. This medical document was created using an electronic medical record system with voice recognition software and computerized dictation system. Although this document has been carefully reviewed, there might still be some phonetic and typographical errors. Occasional wrong-word or ``sound-alike substitutions may have occurred due to the inherent limitations of voice recognition software. These areas are purely typographical due to imperfections of the software programs and do not reflect any compromise in the patient's medical care. Please read the chart carefully and recognize, using context, where these substitutions have occurred. Plan discussed with: Patient, Other Date of Service: Feb 12, 2024 Billing Provider: DENILSON SOLIZ MD Cardiology Common Codes: 58532-JCLCNJX INP/OBS CARE (High) DANITZA LUNA [facility] Feb 12, 2024 17:40
--- NOTE | 2024-02-12 17:56 | DVHSR ---
APPROVED REPORT EXAM: Two-dimensional and M-mode echocardiogram with Doppler and color Doppler. Blood Pressure: 125/80 mmHg INDICATION Chest Pain RISK FACTORS Height: 55, Weight: 246 DIMENSIONS LVDd5.0 (3.8-5.7cm)LA (2D)3.9 (1.9-4.0cm)Aortic Root3.3 (2.0-3.7cm) LVDs3.6 (2.5-4.0cm)LA (MM) (1.9-4.0cm)Aortic Cusp Exc1.6 (1.5-2.0cm) EF (%) 52.0 (55-70%)Rt. Atrium4.0 (1.9-4.0cm)Asc. Aorta cm Mitral Valve MitralMitral Stenosis E wave0.60m/sMV Mean GR.mmHg A wave0.88m/sMV Peak GR.mmHg E/A ratio0.72D MVAcm2 DECEL [id number] 1/2 [id number] IVRTmsDop MVA3.04cm2 Aortic Valve Aortic ValveAortic Stenosis V11.02m/Noé Mean GR.5mmHg V21.47m/Noé Peak GR.9mmHg LVOT Diameter2.3 (1.8-2.4cm)Doppler AVA2.88cm2 Pulmonic Valve V20.85m/s Other Information Technically limited study due to body habitus. Patient sensitive to touch. Conclusion Normal left ventricular size and dimension. Normal left ventricular systolic function estimated ejec tion fraction 55%. There is a grade 1 diastolic dysfunction. Normal right ventricular size and dimension. Normal right ventricular systolic function. Normal biatrial size and dimension. The aortic valve is mildly sclerotic. Normal mitral valve structure and function. Normal tricuspid valve structure and function. The pulmonary valve is grossly normal. No pericardial effusion.
[2024-02-12 20:00] VITALS: PULSE 72
[2024-02-12 20:45] VITALS: BP 125/63; PULSE 89; RESP 16; TEMP 98.6; O2SAT 92
[2024-02-12] MEDS ORDERED: ATORVASTATIN 20 MG TAB PO SCH (22:00)
[2024-02-12] MEDS: HYDROcodone-ACET 5/325MG TAB PO PRN (23:51)
[2024-02-13 00:43] VITALS: BP 140/81; PULSE 78; RESP 18; TEMP 98.2; O2SAT 94
[2024-02-13] MEDS: cefTRIAXone 1GM/50ML D5W 50 ML IV SCH (00:56)
[2024-02-13 05:00] VITALS: BP 126/72; PULSE 66; RESP 16; TEMP 98.2; O2SAT 93
[2024-02-13 06:57] LABS: Basophils # (auto) 0.1 10 ^3/uL (0-0.2); Basophils % (auto) 0.6 % (0.0-2.0); Eosinophils # (auto) 0.3 10 ^3/uL (0-0.8); Eosinophils % (auto) 3.1 % (0.0-7.0); Hematocrit 38.9 % (36.0-46.0); Hemoglobin 12.6 g/dL (12.2-16.2); Lymphocytes # (auto) 3.7 10 ^3/uL (0.4-5.4); Lymphocytes % (auto) 37.1 % (10.0-50.0); Mean Corpuscular Hgb Conc. 32.4 g/dL (32.0-36.0); Mean Corpuscular Volume 89.7 fL (80.0-100.0); Monocytes # (auto) 0.7 10 ^3/uL (0-1.3); Neutrophils # (auto) 5.2 10 ^3/uL (1.6-8.6); Neutrophils % (auto) 52.2 % (37.0-80.0); Nucleated Red Blood Cells % 0.1 %; Platelet Count (auto) 200 10^3/uL (140-450); Red Blood Cells 4.34 10^6/uL (4.0-5.20); Red Cell Distribution Width 14.4 % (11.8-14.3)
[2024-02-13 07:01] LABS: Anion Gap 9 (5-15); Calcium 9.6 mg/dL (8.7-10.4); Carbon Dioxide 26 mmol/L (20-31); Chloride 107 mmol/L (98-107); Potassium 3.9 mmol/L (3.5-5.1); Sodium 142 mmol/L (136-145)
[2024-02-13 07:06] LABS: Glucose 163 mg/dL (74-106)
[2024-02-13 07:07] LABS: Blood Urea Nitrogen 17 mg/dL (9-23); LDL Cholesterol 81 mg/dL (< 100); Magnesium 1.9 mg/dL (1.6-2.6); Triglycerides 161 mg/dL (< 150)
[2024-02-13 07:08] LABS: Cholesterol 136 mg/dL (< 200); HDL Cholesterol 34 mg/dL (40-59)
[2024-02-13 08:00] VITALS: PULSE 67
[2024-02-13 09:00] VITALS: BP 130/72; PULSE 80; RESP 17; TEMP 98.5; O2SAT 93
[2024-02-13] MEDS: ASPirin 81 mg TAB PO SCH (09:30)
[2024-02-13] MEDS: ENOXAPARIN SOD 40 MG/0.4 ML SYRINGE SC SCH (09:30)
--- NOTE | 2024-02-13 11:37 | DVHDSRES ---
Discharge Summary Date of Admission Resident Creating Document: TOMMY BEAVERS Feb 11, 2024 at 20:47 Date of Discharge: Feb 13, 2024 Admitting Diagnosis Chest pain Labs/Diagnostic Data: Laboratory Results Test 02/13/24 06:36 02/13/24 05:51 02/12/24 05:45 02/11/24 14:31 POC Glucose 154 mg/dl (70-106) White Blood Count 10.0 10^3/uL (4.4-10.8) Red Blood Count 4.34 10^6/uL (4.0-5.20) Hemoglobin 12.6 g/dL (12.2-16.2) Hematocrit 38.9 % (36.0-46.0) Mean Corpuscular Volume 89.7 fL (80.0-100.0) Mean Corpuscular Hemoglobin 29.0 pg (28.0-32.0) Mean Corpuscular Hemoglobin Concent 32.4 g/dL (32.0-36.0) Red Cell Distribution Width 14.4 % (11.8-14.3) Platelet Count 200 10^3/uL (140-450) Mean Platelet Volume 11.3 fL (6.9-10.8) Neutrophils (%) (Auto) 52.2 % (37.0-80.0) Lymphocytes (%) (Auto) 37.1 % (10.0-50.0) Monocytes (%) (Auto) 7.0 % (0.0-12.0) Eosinophils (%) (Auto) 3.1 % (0.0-7.0) Basophils (%) (Auto) 0.6 % (0.0-2.0) Neutrophils # (Auto) 5.2 10 ^3/uL (1.6-8.6) Lymphocytes # (Auto) 3.7 10 ^3/uL (0.4-5.4) Monocytes # (Auto) 0.7 10 ^3/uL (0-1.3) Eosinophils # (Auto) 0.3 10 ^3/uL (0-0.8) Basophils # (Auto) 0.1 10 ^3/uL (0-0.2) Nucleated Red Blood Cells 0.1 % Sodium Level 142 mmol/L (136-145) Potassium Level 3.9 mmol/L (3.5-5.1) Chloride Level 107 mmol/L (98-107) Carbon Dioxide Level 26 mmol/L (20-31) Anion Gap 9 (5-15) Blood Urea Nitrogen 17 mg/dL (9-23) Creatinine 0.85 mg/dL (0.550-1.02) Glomerular Filtration Rate Calc 79 mL/min (>90) BUN/Creatinine Ratio 20.0 (10.0-20.0) Serum Glucose 163 mg/dL (74-106) Calcium Level 9.6 mg/dL (8.7-10.4) Magnesium Level 1.9 mg/dL (1.6-2.6) Triglycerides Level 161 mg/dL (< 150) Cholesterol Level 136 mg/dL (< 200) LDL Cholesterol 81 mg/dL (< 100) HDL Cholesterol 34 mg/dL (40-59) D-Dimer, Quantitative 0.54 mg/L FEU (0.0-0.49) Total Bilirubin 0.4 mg/dL (0.2-1.0) Aspartate Amino Transferase (AST) 9 U/L (13-40) Alanine Aminotransferase (ALT) 28 U/L (7-40) Alkaline Phosphatase 121 U/L (46-116) B-Type Natriuretic Peptide 3.25 pg/mL (0-100) Total Protein 7.2 g/dL (5.7-8.2) Albumin 4.3 g/dL (3.2-4.8) Troponin I High Sensitivity < 3 ng/L (</=34) Test 02/11/24 11:54 02/11/24 11:43 Hemoglobin A1c 8.5 % A1C (<5.7) Vitamin B12 Level 405 pg/mL (211-911) Vitamin D 25-Hydroxy 33.3 ng/mL (30.0-100) Thyroid Stimulating Hormone (TSH) 1.02 uIU/mL (0.55-4.78) Urine Color Yellow (Yellow) Urine Clarity Turbid (Clear) Urine pH 5.5 (5.0-9.0) Urine Specific [place] 1.028 (1.001-1.035) Urine Protein Trace (Negative) Urine Ketones Negative (Negative) Urine Blood Negative /uL (Negative) Urine Nitrite Negative (Negative) Urine Bilirubin Negative (Negative) Urine Urobilinogen 2 mg/dL (Negative) Urine Leukocyte Esterase 3+ /uL (Negative) Urine RBC 3 /hpf (0 - 4) Urine WBC 5 /hpf (0 - 5) Urine Squamous Epithelial Cells Mod /hpf (<5) Urine Bacteria Few /hpf (None Seen) Urine Mucus Few (None Seen) Urine Glucose Normal mg/dL (Normal) Other Laboratory Tests 02/13/24 05:51 Brief Hx & Hospital Course: Patient is 58 years old female with past medical history of hypertension, type 2 diabetes mellitus, morbid obesity, osteoporosis, carpal tunnel syndrome, neuropathy, chronic body ache came with a complaint of chest pain. As per patient patient started having chest pain, central in nature, sharp, 10/10 radiating to the back, aggravated with the breathing started 1 day before. Patient also reported feeling some short of breath associated with the chest pain. Patient also reports having some running nose yesterday but no running nose today. Patient denied any fever, palpitation,cough, leg swelling, acute joint pain or swelling, dizziness or dysarthria. Initial lab workup revealed leukocytosis WBC 12, D-dimer 0.5, blood sugar 241, HGB A1c 8.5, alkaline phosphatase 121, urinalysis positive for UTI, leukocyte esterase 3+, WBC 5, bacteria few. Troponin was nonsignificant. Chest x-ray no evidence of acute disease in the chest. EKG nonsignificant change. No ST elevation. During hospitalization patient was treated conservatively. Echo 2D revealed LVEF 55%. Patient is seen by Cardiology and ruled out acute coronary syndrome, as per Cardiology patient's chest pain is most likely musculoskeletal. Patient was also treated for UTI with ceftriaxone. Patient was prescribed nitrofurantoin 100 mg p.o. b.i.d. for 5 days, atorvastatin 40 mg q.h.s. for dyslipidemia and metformin 500 mg b.i.d. for diabetes mellitus type 2.. Patient was pain-free on discharge. Patient's med was sent to the pharmacy electronically. Patient was advised for weight reduction and healthy diet and physical activity. Patient was advised to follow up with the primary care physician in 1 week and also to follow up with the coating operator if necessary after talking to primary care physician. Patient was hemodynamically stable on discharge PMH-hypertension, type 2 diabetes mellitus, morbid obesity, osteoporosis, carpal tunnel syndrome, neuropathy, chronic body ache PSH- , history of right ovary removal, appendectomy Allergy- NKDA Personal History/ Social History- lives with a caregiver, nonsmoker, nonalcoholic , no drug abuse as per patient Patient was seen today at the bedside. Patient reports chest pain is better today Cardiovascular- deny acute chest pain or shortness of breath or cough or palpitation Respiratory- denies cough or short of breath or wheezing Gastrointestinal- denies any rectal bleeding, nausea or vomiting Musculoskeletal-denies acute joint swelling or tenderness or redness Neurological- denies acute dysarthria, dysphagia, change in vision Psychiatry- denies depression or SI or HI Skin- denies acute rash or purpura General examination- awake, alert, oriented, conversant HEENT- PEERLA, no acute nasal discharge Cardiovascular- S1-S2 audible, rate and rhythm regular, no murmur Respiratory- CTAB, no wheeze or rhonchi Gastrointestinal-nontender, bowel sound+. Nondistended Musculoskeletal-no acute joint swelling or tenderness or redness# Lower extremity- no leg edema Neurological- cranial nerves intact, no acute dysarthria or dysphagia Psychiatry- denies depression or SI or HI Skin- no acute rash or purpura Operations or Procedures Signed PATIENT: RON BLACKWELL ACCT: [id number] UNIT: [id number] : 1965 LOC[facility] AGE / SEX: 58 / F ADM STATUS: ADM IN SERVICE 7 ORDERING PHYSICIAN: DAVE BHATIA RESIDENT PROCEDURE(s): ECIDC - ECHO 2D MODE CARDIAC DOP REASON: Chest Pain ORDER NUMBER(s): [id number], ACCESSION NUMBER(s): [id number] APPROVED REPORT EXAM: Two-dimensional and M-mode echocardiogram with Doppler and color Doppler. Blood Pressure: 125/80 mmHg INDICATION Chest Pain RISK FACTORS Height: 55, Weight: 246 DIMENSIONS LVDd 5.0 (3.8-5.7cm) LA (2D) 3.9 (1.9-4.0cm) Aortic Root 3.3 (2.0- 3.7cm) LVDs 3.6 (2.5-4.0cm) LA (MM) (1.9-4.0cm) Aortic Cusp Exc 1.6 (1.5- 2.0cm) EF (%) 52.0 (55-70%) Rt. Atrium 4.0 (1.9-4.0cm) Asc. Aorta cm Mitral Valve Mitral Mitral Stenosis E wave 0.60m/s MV Mean GR. mmHg A wave 0.88m/s MV Peak GR. mmHg E/A ratio 0.7 2D MVA cm2 DECEL Time 237ms PRESS 1/2 Time 72ms IVRT ms Dop MVA 3.04cm2 Aortic Valve Aortic Valve Aortic Stenosis V1 1.02m/s AO Mean GR. 5mmHg V2 1.47m/s AO Peak GR. 9mmHg LVOT Diameter 2.3 (1.8-2.4cm) Doppler CA 2.88cm2 Pulmonic Valve V2 0.85m/s Other Information Technically limited study due to body habitus. Patient sensitive to touch. Conclusion Normal left ventricular size and dimension. Normal left ventricular systolic function estimated ejection fraction 55%. There is a grade 1 diastolic dysfunction. Normal right ventricular size and dimension. Normal right ventricular systolic function. Normal biatrial size and dimension. The aortic valve is mildly sclerotic. Normal mitral valve structure and function. Normal tricuspid valve structure and function. The pulmonary valve is grossly normal. No pericardial effusion. SIGNED BY: DENILSON SOLIZ MD SIGNED DATE/TIME: 02/12/24 175 DIAGNOSTIC IMAGING Diagnostic Imaging Report : [id number] Signed PATIENT: RON BLACKWELL ACCT: [id number] UNIT: [id number] : 1965 LOC: [facility] ROOM / BED: [address] [place] [address] AGE / SEX: 58 / F ADM STATUS: ADM IN SERVICE 0700 ORDERING PHYSICIAN: DAVE BHATIA RESIDENT PROCEDURE(s): CXRP - CHEST PORTABLE REASON: Chest Pain ORDER NUMBER(s): [id number], ACCESSION NUMBER(s): [id number] CLINICAL INFORMATION: 58 years old, Female; Chest Pain. TECHNIQUE: Single AP portable chest radiograph was obtained. COMPARISON: Chest radiographs dated 12/12/2021. Correlation also made to CT of the chest, abdomen, and pelvis dated 08/30/2022. FINDINGS: Lungs: Mild atelectasis in the lung bases. No focal consolidation. Pneumothorax or pleural effusion. Cardiac: Heart size is within normal limits. Pulmonary vasculature: Unremarkable. Mediastinum/parminder: Unremarkable. Bones: No acute osseous abnormality identified. Other: No other significant findings. IMPRESSION: No evidence of acute disease in the chest. ATED BY: BERNARD MILLER DO DICTATED DATE/TIME: 02/12/24739 SIGNED BY: BERNARD MILLER DO SIGNED DATE/TIME: 02/12/24739 CC: Condition at Discharge: Stable Final Diagnosis/Problems List Chest pain likely musculoskeletal Rule out ACS UTI Hypertension Diabetes mellitus type 2 Dyslipidemia Neuropathy likely diabetic neuropathy Osteoporosis Morbid obesity Discharge Disposition: Home Discharge Instruct/Medications Diet: Consistent carbohydrate, Cardiac 2g Na,low cholest Activity: No Restrictions, As Tolerated Follow Up/Referral: Please follow up with the primary care physician in 1 week and also follow up with the coating operator in 1-2 weeks Medications: Macrobid 100 mg p.o. b.i.d. for 5 days Metformin 500 mg b.i.d. Discharge Statement: "Patient was advised to return to the ER or call 911 if any headaches, dizziness, shortness of breath, chest pain, abdominal pain, bleeding, fevers, or worsening of medical condition. Patient was counseled about treatment plan, medications, possible side effects, patientverbalized understanding. All questions were answered to the best of my ability. This discharge took greater then 30 minutes in planning, reviewing documentation, counseling the patient, and discussing with other team members." ASSESSMENT ASSESSMENT Assessment Chest pain likely musculoskeletal ACS ruled out Date of Service: Feb 13, 2024 Billing Provider: WOODROW GARCIA MD Common Visit Codes: 50783-BRE/OBS DISCH DAY >30min TOMMY BEAVERS Feb 13, 2024 11:37 WOODROW GARCIA MD Feb 14, 2024 11:36
[2024-02-13 11:58] VITALS: BP 130/72; PULSE 80; RESP 17; TEMP 98.5; O2SAT 98
[2024-02-13] MEDS: INFLUENZA TRIVALENT 2024-2025 0.5 ML INJ IM ONE (12:01)
[2024-02-13] MEDS: PNEUMOCOCCAL VACC POLYS 25 MCG/0.5 ML VIAL IM ONE (12:02)
--- NOTE | 2024-02-13 12:20 | ECG ---
[facility] Test Date: 2024-02-11 Test Time: 11:27:24 Pat Name: RON BLACKWELL Department: ER Room: [address] [place] [address] Gender: F Ivory Polisher: ALANA : 1965 Requested By: HERRERA MARQUEZ Order Number: [id number] Reading MD: Measurements Intervals [place] Rate: 81 P: 37 KS: 121 QRS: -38 QRSD: 91 T: 20 QT: 374 QTc: 434 Interpretive Statements Sinus rhythm Inferolateral infarct, old Baseline wander in lead(s) III,aVF,V4,V5,V6 Please click the below link to view image of tracing.
[2024-02-13 12:44] VITALS: BP 128/74; PULSE 71; RESP 17; TEMP 98.2; O2SAT 94
[2024-02-13] MEDS ORDERED: NITR-52 PO (13:47)
[2024-02-13] MEDS ORDERED: METF-370 PO (13:47)
[2024-02-13] MEDS ORDERED: ATORVASTATIN 20 MG TAB PO SCH (22:00)
== END 2024-02-13 14:05 | disposition home or self-care (01) | DRG 203 ==
LOC: ER 11:21 → TELE 20:47 → TELE-EAST 02-12 13:40 → TELE-E-ADS 02-12 23:16
PROVIDERS: ADMIT Internal Medicine Geriatric Medicine; ATTEND Internal Medicine Geriatric Medicine
DX: R07.89 Other chest pain (principal); E11.42 Type 2 diabetes mellitus with diabetic polyneuropathy; Z68.44 Body mass index [BMI] 60.0-69.9, adult; E66.01 Morbid (severe) obesity due to excess calories; N30.00 Acute cystitis without hematuria; I10 Essential (primary) hypertension; E78.5 Hyperlipidemia, unspecified; M81.0 Age-related osteoporosis without current pathological fracture; Z82.49 Family history of ischemic heart disease and other diseases of the circulatory system; Z90.721 Acquired absence of ovaries, unilateral; Z90.49 Acquired absence of other specified parts of digestive tract; Z79.4 Long term (current) use of insulin; Z99.3 Dependence on wheelchair; Z88.5 Allergy status to narcotic agent; Z79.82 Long term (current) use of aspirin
CPT/HCPCS: 36415; 71045; 80048; 80053; 80061; 81001; 82306; 82607; 82962; 83036; 83735; 83880; 84443; 84484; 85025; 85379; 90656; 93005; 93306; G0378; J1815

== ENCOUNTER 2024-11-11 18:17 | Inpatient (IN) | payer MEDICAID ==
[~2024-11-11] VITALS: Ht 154.9 cm; Wt 104.5 kg
[~2024-11-11 18:17] MED LIST changes: +METF-370 PO; +NITR-52 PO
--- NOTE | 2024-11-11 18:34 | ED.PDOC ---
History of Present Illness HPI Comments This is a 59 years old female with past medical history of hypertension, type 2 diabetes mellitus, osteoporosis presented to the ED via EMS for epigastric pain and vomiting since yesterday. The patient states that since yesterday she has been experiencing epigastric pain which is sharp colicky in nature, 01/07, localized without any aggravating and relieving factors and associated with vomiting and nausea and she was not able to keep anything down the throat. She also mentioned few years ago she had the same symptoms and was treated in the hospital for stomach infection. She denies fever, chills, shortness of breath, dysuria, hematuria or altered bowel habit. Chief Complaint: Abdominal Pain Time Seen by MD: 18:20 Primary Care Provider: STEFFEN Allergies: Coded Allergies: Morphine (Verified Allergy, Severe, 02/12/24) Home Meds Active Scripts Metformin Hydrochloride (Metformin Hcl) 500 Mg Tab, 1 TAB PO BID for 30 Days, #60 TAB 3 Refills Prov:CARMELO MACIAS RESIDENT 02/13/24 Nitrofurantoin (Nitrofurantoin) 100 Mg Cap, 1 CAP PO BID for 5 Days, #10 CAP Prov:CARMELO MACIAS RESIDENT 02/13/24 Acetaminophen (Tylenol 8 Hour Arthritis) 650 Mg Tab, 650 MG PO TID, #24 TAB Prov:OSITO MAYER 04/24/23 Meclizine HCl (Meclizine 25) 25 Mg Tab, 25 MG PO Q6HP PRN, #20 TAB 0 Refills Prov:JOSE TERAN MD 08/30/22 Cephalexin Monohydrate (Cephalexin) 500 Mg Cap, 500 MG PO Q6HR for 5 Days, #20 MG Prov:JOSE TERAN MD 08/30/22 Hydrocodone-Acetaminophen (Hydrocodone Bitartrate/AC 5-325 mg) 1 Tab Tab, 1 TAB PO Q6HP PRN, #20 TAB Prov:CHERRI LEMONS PAC 06/17/22 Ibuprofen Micronized (Ibuprofen) 800 Mg Tab, 800 MG PO Q8HP PRN, #30 TAB Prov:CHERRI LEMONS PAC 06/17/22 Information Source: Patient, Emergency Med Personnel Mode of Arrival: EMS Past Medical History PAST MEDICAL HISTORY: DM, High Lipids, HTN Surgical History: Appendectomy CHILD THERAPIST History: No Pertinent CHILD THERAPIST History Family History Family History: Reviewed,noncontributory to illness, Family hx of Cancer, Family hx of HTN Social History Smoker: Non-Smoker Alcohol: Denies ETOH Use Drugs: Denies Drug Use Lives In: Home Constitutional: reports: chills; denies: diaphoresis, fatigue, fever, malaise, sweats, weakness, others EENTM: denies: blurred vision, double vision, ear bleeding, ear discharge, ear drainage, ear pain, ear ringing, eye pain, eye redness, hearing loss, mouth pain, mouth swelling, nasal discharge, nose bleeding, nose congestion, nose pain, photophobia, tearing, throat pain, throat swelling, voice changes, others Respiratory: denies: cough, hemoptysis, orthopnea, SOB at rest, shortness of breath, SOB with excertion, stridor, wheezing, others Cardiovascular: denies: chest pain, dizzy spells, diaphoresis, Dyspnea on exertion, edema, irregular heart beat, left arm pain, lightheadedness, palpitations, PND, syncope, others Gastrointestinal: reports: abdominal pain, nausea, vomiting; denies: abdomen distended, blood streaked bowels, constipated, diarrhea, dysphagia, difficulty swallowing, hematemesis, melena, poor appetite, poor fluid intake, rectal bleeding, rectal pain, others Genitourinary: denies: abnormal vagina bleeding, burning, dyspareunia, dysuria, flank pain, frequency, hematuria, incontinence, pain, , vagina discharge, urgency, others Neurological: denies: dizziness, fainting, headache, left sided numbness, left sided weakness, numbness, paresthesia, pre-existing deficit, right sided numbness, right sided weakness, seizure, speech problems, tingling, tremors, weakness, others Musculoskeletal: denies: back pain, gout, joint pain, joint swelling, muscle pain, muscle stiffness, neck pain, others Integumetry: denies: bruises, change in color, change in hair/nails, dryness, laceration, lesions, lumps, rash, wounds, others Allergic/Immunocompromised: denies: Difficulty Healing, Frequent Infections, Hives, Itching, others Hematologic/Lymphatic: denies: anemia, blood clots, easy bleeding, easy bruising, swollen glands, others Endocrine: denies: excessive hunger, excessive sweating, excessive thirst, excessive urination, flushing, intolerance to cold, intolerance to heat, unexplained weight gain, unexplained weight loss, others Psychiatric: denies: anxiety, bipolar disorder, depression, hopeless, panic disorder, schizophrenia, sleepless, suicidal, others Physical Exam General Appearance: Mild Distress HEENT: Normal ENT Inspection, Pharynx Normal, TMs Normal Neck: Full Range of Motion, Non-Tender, Normal, Normal Inspection Respiratory: Chest Non-Tender, Lungs Clear, No Accessory Muscle Use, No Respiratory Distress, Normal Breath Sounds Cardiovascular: No Edema, No JVD, No Murmur, No Gallop, Normal Peripheral Pulses, Regular Rate/Rhythm Breast Exam: Deferred Gastrointestinal: Epigastric, No Organomegaly, No Pulsatile Mass, Normal Bowel Sounds, Tenderness Genitalia: Deferred Pelvic: Deferred Rectal: Deferred Extremities: No calf tenderness, Normal capillary refill, Normal inspection, Normal range of motion, Non-tender, No pedal edema Neurologic: NOT DONE Cerebellar Function: NOT DONE Reflexes: NOT DONE Skin: NOT DONE Peripheral Pulses: 2+ carotid (R), 2+ carotid (L), 2+ femoral (R), 2+ femoral (L), 2+ dorsalis pedis (R), 2+ dorsalis pedis (L), 2+ Radial (R), 2+ Radial (L), 2+ Brachial (R), 2+ Brachial (L) Lymphatic: NOT DONE Was a procedure done? Was a procedure done?: No EKG EKG : Comments Normal sinus rhythm, sinus bradycardia Differential Dx Considerations may include: Diverticulitis, gastritis, PUD, colitis, pancreatitis, UTI X-Ray, Labs, Meds, VS Vital Signs Date Time Temp Pulse Resp B/P (MAP) Pulse Ox O2 Delivery O2 Flow Rate FiO2 11/11/24 20:46 64 18 95 Room Air* 0 21 11/11/24 20:45 98.7 64 18 139/72 (94) 95 98.7 11/11/24 18:28 58 11/11/24 18:22 98.0 60 18 117/74 95 98.0 Lab Test 11/11/24 18:57 Range/Units White Blood Count 15.1 H 4.4-10.8 10^3/uL Red Blood Count 4.36 4.0-5.20 10^6/uL Hemoglobin 12.8 12.2-16.2 g/dL Hematocrit 39.5 36.0-46.0 % Mean Corpuscular Volume 90.6 80.0-100.0 fL Mean Corpuscular Hemoglobin 29.5 28.0-32.0 pg Mean Corpuscular Hemoglobin Concent 32.5 32.0-36.0 g/dL Red Cell Distribution Width 15.7 H 11.8-14.3 % Platelet Count 216 140-450 10^3/uL Mean Platelet Volume 11.2 H 6.9-10.8 fL Neutrophils (%) (Auto) 78.4 37.0-80.0 % Lymphocytes (%) (Auto) 14.3 10.0-50.0 % Monocytes (%) (Auto) 6.0 0.0-12.0 % Eosinophils (%) (Auto) 0.9 0.0-7.0 % Basophils (%) (Auto) 0.4 0.0-2.0 % Neutrophils # (Auto) 11.8 H 1.6-8.6 10 ^3/uL Lymphocytes # (Auto) 2.2 0.4-5.4 10 ^3/uL Monocytes # (Auto) 0.9 0-1.3 10 ^3/uL Eosinophils # (Auto) 0.1 0-0.8 10 ^3/uL Basophils # (Auto) 0.1 0-0.2 10 ^3/uL Nucleated Red Blood Cells 0.1 % Sodium Level 142 136-145 mmol/L Potassium Level 4.0 3.5-5.1 mmol/L Chloride Level 105 98-107 mmol/L Carbon Dioxide Level 27 20-31 mmol/L Anion Gap 10 5-15 Blood Urea Nitrogen 19 9-23 mg/dL Creatinine 0.91 0.550-1.02 mg/dL Glomerular Filtration Rate Calc 72 >90 mL/min BUN/Creatinine Ratio 20.9 H 10.0-20.0 Serum Glucose 203 H 74-106 mg/dL Calcium Level 9.2 8.7-10.4 mg/dL Lipase > 3500 H 12-53 U/L X-Ray, Labs, Meds, VS Comment Exam: CT CT AB PEL WO CON-NO ORAL OR IV History: Epigastric pain Comparison Study: CT CT AB PEL WO CON-NO ORAL OR IV on DOS: 6/2/23 TECHNIQUE: Multidetector CT of the abdomen was performed from lung bases to pubic symphysis. Imaging was performed without IV contrast. Axial, coronal and sagittal multiplanar reformats were obtained from the axial data set by the technologist. Radiation Dose Information: CT Dose: CTDI volume is 26.86 mGy. Dose-length product is 1262.44 mGy*cm FINDINGS: Evaluation of solid organs is limited due to lack of intravenous contrast use. Findings: Lung Bases: No acute or significant lung base finding. Normal heart size. No pleural or pericardial effusion. Liver: The liver is normal in size. No focal lesions. Gallbladder and Biliary Tree: Unremarkable Spleen: Unremarkable Pancreas: Mild inflammatory changes around the pancreas correlate for possible pancreatitis. Adrenal Glands: Unremarkable Kidneys: Kidneys are grossly normal without calculi or hydronephrosis. Bladder: Grossly unremarkable for degree of distention. Bowel: The stomach is grossly normal in appearance. Small bowel and colon are normal in caliber and distribution. The appendix is not visualized; however, no secondary findings of acute appendicitis identified. Ascites: Absent Lymphadenopathy: No mesenteric, retroperitoneal or periportal lymphadenopathy. Abdominal Wall and Mesentery: Unremarkable. Vasculature: The visualized abdominal aorta is normal in size and caliber. Evaluation of abdominal and pelvic vessels is limited due to lack of intravenous contrast. Pelvic Organs: Unremarkable Musculoskeletal: No aggressive focal bony lesions, acute fractures or dislocation. Soft tissues: Unremarkable IMPRESSION: 1. No findings of bowel obstruction. 2. Mild inflammatory stranding around the mesenteric fat of the pancreas correlate for possible pancreatitis. 3. No free air or free fluid. 4. No calcified gallstones. 5. No nephrolithiasis or hydronephrosis. 6. No free air or free fluid. Images Reviewed?: Images reviewed and evaluated by me Time of 1ST Reevaluation: 19:49 Reevaluation 1ST: Unchanged Patient Education/Counseling: Diagnosis, Treatment Family Education/Counseling: No Family Present Comments This is a 59-year-old female presented to the ED via EMS for epigastric pain and vomiting Initial physical exam demonstrated epigastric tenderness CBC showed elevated WBC count Lipase is more than 3500 CT abdomen pelvis without IV contrast demonstrated mild fat stranding around the pancreas possible pancreatitis Pending hepatic panel, right upper quadrant U/S and blood alcohol Patient was given IV lactated ringer 1 L bolus, IV Toradol 30 mg once The patient will be admitted for further evaluation and management of acute pancreatitis. SEPSIS Sepsis Screen Date sepsis recognized/suspect: Nov 11, 2024 Time Sepsis recognized/suspect: 1825 Recent Procedure: No On Antibiotic Therapy: No Respiratory Rate >20: No Heart Rate >90: No Temp<36 C (96.8 F) or >38.3 C: No SBP <90 or MAP <65 mmHG: No New Acute Mental Status Change: No Is the patient on CPAP, BIPAP,: No Physician Orders Urinalysis (11/11/24 18:29) Ct Ab Pel Wo Con-No Oral Or Iv (11/11/24 18:29) Npo (Nothing By Mouth) Diet (11/12/24 Breakfast) Abdomen Limited (11/11/24 20:08) Hepatic Panel (11/11/24 20:08) Blood Alcohol (11/11/24 20:08) Lipid Panel (11/11/24 20:59) Vital Signs Date Time Temp Pulse Resp B/P (MAP) Pulse Ox O2 Delivery O2 Flow Rate FiO2 11/11/24 20:46 64 18 95 Room Air* 0 21 11/11/24 20:45 98.7 64 18 139/72 (94) 95 98.7 11/11/24 18:28 58 11/11/24 18:22 98.0 60 18 117/74 95 98.0 Laboratory Tests Test 11/11/24 18:57 White Blood Count 15.1 10^3/uL (4.4-10.8) H Departure 1 Departure Time of Disposition: 19:50 Impression: Primary Impression: Acute pancreatitis Additional Impression: Leukocytosis Disposition: 09 ADMITTED INPATIENT Admit to: Med Surg Condition: Guarded Critical Care Note Critical Care Time?: No Stability Stability form required: DAVE Donaldson RESIDENT Nov 11, 2024 18:34
--- NOTE | 2024-11-11 19:15 | DVH ---
Exam: CT CT AB PEL WO CON-NO ORAL OR IV History: Epigastric pain Comparison Study: CT CT AB PEL WO CON-NO ORAL OR IV on DOS: 08/30/22 TECHNIQUE: Multidetector CT of the abdomen was performed from lung bases to pubic symphysis. Imaging was performed without IV contrast. Axial, coronal and sagittal multiplanar reformats were obtained fr om the axial data set by the technologist. Radiation Dose Information: CT Dose: CTDI volume is 26.86 mGy. Dose-length product is 1262.44 mGy*cm FINDINGS: Evaluation of solid organs is limited due to lack of intravenous contrast use. Findings: Lung Bases: No acute or significant lung base finding. Normal heart size. No pleural or pericardial effusion. Liver: The liver is normal in size. No focal lesions. Gallbladder and Biliary Tree: Unremarkable Spleen: Unremarkable Pancreas: Mild inflammatory changes around the pancreas correlate for possible pancreatitis. Adrenal Glands: Unremarkable Kidneys: Kidneys are grossly normal without calculi or hydronephrosis. Bladder: Grossly unremarkable for degree of distention. Bowel: The stomach is grossly normal in appearance. Small bowel and colon are normal in caliber and d istribution. The appendix is not visualized; however, no secondary findings of acute appendicitis id entified. Ascites: Absent Lymphadenopathy: No mesenteric, retroperitoneal or periportal lymphadenopathy. Abdominal Wall and Mesentery: Unremarkable. Vasculature: The visualized abdominal aorta is normal in size and caliber. Evaluation of abdominal a nd pelvic vessels is limited due to lack of intravenous contrast. Pelvic Organs: Unremarkable Musculoskeletal: No aggressive focal bony lesions, acute fractures or dislocation. Soft tissues: Unremarkable IMPRESSION: 1. No findings of bowel obstruction. 2. Mild inflammatory stranding around the mesenteric fat of the pancreas correlate for possible pancr eatitis. 3. No free air or free fluid. 4. No calcified gallstones. 5. No nephrolithiasis or hydronephrosis. 6. No free air or free fluid. Radiation optimization: All CT scans at this facility use at least one of these dose optimization te chniques: automated exposure control mA and/or kV adjustment per patient size (includes targeted exa ms where dose is matched to clinical indication) or iterative reconstruction. HS:Y
[2024-11-11 19:20] LABS: Hematocrit 39.5 % (36.0-46.0); Hemoglobin 12.8 g/dL (12.2-16.2); Mean Corpuscular Hemoglobin 29.5 pg (28.0-32.0); Mean Corpuscular Volume 90.6 fL (80.0-100.0); Nucleated Red Blood Cells % 0.1 %
[2024-11-11 19:31] LABS: Chloride 105 mmol/L (98-107); Potassium 4.0 mmol/L (3.5-5.1); Sodium 142 mmol/L (136-145)
[2024-11-11 19:32] LABS: Anion Gap 10 (5-15); Calcium 9.2 mg/dL (8.7-10.4); Carbon Dioxide 27 mmol/L (20-31)
[2024-11-11 19:37] LABS: BUN/Creatinine Ratio 20.9 (10.0-20.0); Blood Urea Nitrogen 19 mg/dL (9-23)
[2024-11-11] MEDS ORDERED: fentaNYL CITRATE 100 MCG/2 ML VL IV ONE (19:45)
[2024-11-11 19:59] LABS: Glucose 203 mg/dL (74-106); Lipase > 3500 U/L (12-53)
--- NOTE | 2024-11-11 20:09 | ECG ---
[facility] Test Date: 2024-11-11 Test Time: 18:28:43 Pat Name: RON BLACKWELL Department: ED Room: 0214 Gender: F [employer] M[employer]: BRENT : 1965 Requested By: DAVE BHATIA Order Number: [id number] Reading MD: Bay Ferraro Measurements Intervals Sherman Rate: 58 P: 16 NV: 123 QRS: 1 QRSD: 98 T: 3 QT: 453 QTc: 445 Interpretive Statements Sinus rhythm Low voltage, precordial leads Consider anterior infarct Electronically Signed On 11-15-2024 22:45:48 PDT by Bay Ferraro Please click the below link to view image of tracing.
[2024-11-11 20:46] VITALS: PULSE 64; RESP 18; O2SAT 95
--- NOTE | 2024-11-11 20:53 | DVH ---
INDICATION: epigastric pain TECHNIQUE: Multiple real-time sonographic images of the abdomen were obtained. COMPARISON: None FINDINGS: Changes of the hepatic parenchyma consistent with steatosis.. The liver measures 16.4 cm. No intrahepatic biliary ductal dilatation is noted. The gallbladder wall measures 0.22 cm and is unremarkable. Stones but no sludge.. The common duct measures 0.54 cm and is unremarkable. No pericholecystic fluid is noted. Negative sonographic Patel 's sign The right kidney measures 9.4 cm. No hydronephrosis. The pancreas is not well visualized due to obscuration from bowel gas. The visualized portions of the IVC and aorta are grossly unremarkable. IMPRESSION: 1. Gallstones noted gallbladder with no dilatation of the common bile duct. Negative sonographic murp hy's sign. 2. Liver measures 16.4 cm in length with Steatosis in the parenchyma. HS:Y
[2024-11-11 21:38] LABS: Albumin 4.3 g/dL (3.2-4.8); Total Protein 6.9 g/dL (5.7-8.2)
[2024-11-11 21:41] LABS: Alanine Aminotransferase 424 U/L (7-40); Alkaline Phosphatase 261 U/L (46-116); Bilirubin, Direct 1.9 mg/dL (<0.3); Bilirubin, Total 2.7 mg/dL (0.2-1.0)
[2024-11-11] MEDS: KETOROLAC TROMETH 30 MG/ML 1ML VIAL IV ONE (21:42)
[2024-11-11] MEDS: LACTATED RINGER'S 1,000 ML IV ONE (21:42)
[2024-11-11] MEDS: ONDANSETRON HCL 4 MG/2 ML VIAL IV ONE (21:42)
[2024-11-11 21:51] LABS: Cholesterol 188 mg/dL (< 200); HDL Cholesterol 44 mg/dL (40-59); Triglycerides 187 mg/dL (< 150)
[2024-11-11] MEDS ORDERED: ACETAMINOPHEN 325 MG TAB PO PRN (23:15)
[2024-11-11] MEDS ORDERED: ONDANSETRON HCL 4 MG/2 ML VIAL IV PRN (23:15)
[2024-11-11] MEDS ORDERED: NITROGLYCERIN 0.4 MG SL TAB SL PRN (23:15)
[2024-11-11] MEDS ORDERED: DEXTROSE (50%) 50ML SYRG IV PRN (23:15)
--- NOTE | 2024-11-11 23:17 | DVHHP2 ---
History of Present Illness Reason for Visit: Acute pancreatitis History of Present Illness The patient is a 59-year-old female with past medical history of DM, hyperlipidemia, and hypertension who presented to [facility] ED with complaint of epigastric abdominal pain. Patient reports she has been experiencing epigastric pain, sharp colicky in nature, rating 10/10 numeric scale, localized, associated with nausea, vomiting, unable to keep anything down the throat, getting worse that prompted this visit..Patient was seen and evaluated in the ED, laboratory data shows WBC 15.1, platelets 216, sodium 142, potassium 4.0, BUN 19, creatinine 0.91, glucose 203, calcium 9.2, lipase >3500, total bilirubin 2.7, direct bilirubin 1.9, AST 186, ALT 424, blood pressure 139/72, heart rate 64, temperature 98.7 F, O2 saturation 95% on room air. Abdomen/pelvis CT revealing mild inflammatory stranding around the mesenteric fat of the pancreas correlate for possible pancreatitis; single organ ultrasound revealing gallstones noted gallbladder with no dilatation of the, bile ducts, get these sonographic Patel's sound; liver measures 16.4 cm in length with steatosis in the parenchyma. Patient was started on IV antibiotic regimen Rocephin, please see medication orders section in the computer. On my assessment, patient denied chest pain, no headache, no dizziness, no diaphoresis, no shortness of breaths, no abdominal pain at this moment, no diarrhea, no nausea, no vomiting, no fever, no chills. Patient was admitted for further evaluation and medical management. Past Medical History DM, High Lipids, HTN Past Surgical History Appendectomy Family History Reviewed, noncontributory to the management of this case. Past Social History The patient lives at home, denies smoking, alcohol or illicit drugs abuse. Review of Systems Constitutional: No: Fever, Chills, Sweats, Weakness, Malaise, Other Eyes: No: Pain, Vision change, Conjunctivae inflammation, Eyelid inflammation, Other, Redness ENT: No: Ear pain, Ear discharge, Nose pain, Nose discharge, Nose congestion, Mouth pain, Mouth swelling, Throat pain, Throat swelling, Other Respiratory: No: Cough, Dry, Shortness of breath, SOB with excertion, Wheezing, Hemoptysis, Pleuritic Pain, Sputum, Wheezing, Other Cardiovascular: No: Chest Pain, Palpitations, Orthopnea, Paroxysmal Noc. Dyspnea, Edema, Lt Headedness, Other Gastrointestinal: Nausea, Vomiting, Abdominal Pain; No: Diarrhea, Constipation, Melena, Hematochezia, Other Genitourinary: No Dysuria, No Frequency, No Incontinence, No Hematuria, No Rete ntion, No Other Musculoskeletal: No: other, neck pain, shoulder pain, arm pain, back pain, hand pain, leg pain, foot pain Skin: No: Rash, Lesions, Jaundice, Bruising, Other Neurological: No: Weakness, Numbness, Incoordination, Change in speech, Confusion, Seizures, Other Allergies: Coded Allergies: Morphine (Verified Allergy, Severe, 02/12/24) Exam Vital Signs Vital Signs Date Time Temp Pulse Resp B/P (MAP) Pulse Ox O2 Delivery O2 Flow Rate FiO2 11/11/24 20:46 64 18 95 Room Air* 0 21 11/11/24 20:45 98.7 139/72 (94) 98.7 General Appearance: Alert, Oriented X3, Cooperative, No acute distress HEENT: Atraumatic, PERRLA, EOMI, Mucous membr. moist/pink Respiratory: Clear to auscultation, Normal air movement Cardiovascular: Regular rate, Normal S1, Normal S2, No murmurs Abdominal: Normal bowel sounds, Soft, No hepatospenomegaly, No masses, Other (Reports tenderness) Extremities: No clubbing, No cyanosis, No edema, Normal pulses Skin: No rashes, No breakdown, No significant lesion Neuro: Normal gait, Normal speech, Strength at 5/5 X4 ext, Normal tone, Sensation intact, Cranial nerves 3-12 NL, Reflexes 2+ Psych/Mental Status: Mental status NL, Mood NL Labs/Xrays Labs Test 11/11/24 18:57 11/11/24 18:37 Range/Units White Blood Count 15.1 H 4.4-10.8 10^3/uL Red Blood Count 4.36 4.0-5.20 10^6/uL Hemoglobin 12.8 12.2-16.2 g/dL Hematocrit 39.5 36.0-46.0 % Mean Corpuscular Volume 90.6 80.0-100.0 fL Mean Corpuscular Hemoglobin 29.5 28.0-32.0 pg Mean Corpuscular Hemoglobin Concent 32.5 32.0-36.0 g/dL Red Cell Distribution Width 15.7 H 11.8-14.3 % Platelet Count 216 140-450 10^3/uL Mean Platelet Volume 11.2 H 6.9-10.8 fL Neutrophils (%) (Auto) 78.4 37.0-80.0 % Lymphocytes (%) (Auto) 14.3 10.0-50.0 % Monocytes (%) (Auto) 6.0 0.0-12.0 % Eosinophils (%) (Auto) 0.9 0.0-7.0 % Basophils (%) (Auto) 0.4 0.0-2.0 % Neutrophils # (Auto) 11.8 H 1.6-8.6 10 ^3/uL Lymphocytes # (Auto) 2.2 0.4-5.4 10 ^3/uL Monocytes # (Auto) 0.9 0-1.3 10 ^3/uL Eosinophils # (Auto) 0.1 0-0.8 10 ^3/uL Basophils # (Auto) 0.1 0-0.2 10 ^3/uL Nucleated Red Blood Cells 0.1 % Sodium Level 142 136-145 mmol/L Potassium Level 4.0 3.5-5.1 mmol/L Chloride Level 105 98-107 mmol/L Carbon Dioxide Level 27 20-31 mmol/L Anion Gap 10 5-15 Blood Urea Nitrogen 19 9-23 mg/dL Creatinine 0.91 0.550-1.02 mg/dL Glomerular Filtration Rate Calc 72 >90 mL/min BUN/Creatinine Ratio 20.9 H 10.0-20.0 Serum Glucose 203 H 74-106 mg/dL Calcium Level 9.2 8.7-10.4 mg/dL Total Bilirubin 2.7 H 0.2-1.0 mg/dL Direct Bilirubin 1.9 H <0.3 mg/dL Aspartate Amino Transferase (AST) 186 H 13-40 U/L Alanine Aminotransferase (ALT) 424 H 7-40 U/L Alkaline Phosphatase 261 H 46-116 U/L Total Protein 6.9 5.7-8.2 g/dL Albumin 4.3 3.2-4.8 g/dL Lipase > 3500 H 12-53 U/L Plasma/Serum Blood Alcohol < 3.0 <10 mg/dL Triglycerides Level 187 H < 150 mg/dL Cholesterol Level 188 < 200 mg/dL LDL Cholesterol 112 H < 100 mg/dL HDL Cholesterol 44 40-59 mg/dL PATIENT: RON BLACKWELL ACCT: [id number] UNIT: [id number] : 1965 LOC: ER ROOM / BED: / AGE / SEX: 59 / F ADM STATUS: REG ER SERVICE 1829 ORDERING PHYSICIAN: DAVE BHATIA RESIDENT PROCEDURE(s): ABPL - CT AB PEL WO CON-NO ORAL OR IV REASON: Epigastric pain ORDER NUMBER(s): [id number], ACCESSION NUMBER(s): [id number] Exam: CT CT AB PEL WO CON-NO ORAL OR IV History: Epigastric pain Comparison Study: CT CT AB PEL WO CON-NO ORAL OR IV on DOS: 08/30/22 TECHNIQUE: Multidetector CT of the abdomen was performed from lung bases to pubic symphysis. Imaging was performed without IV contrast. Axial, coronal and sagittal multiplanar reformats were obtained from the axial data set by the technologist. Radiation Dose Information: CT Dose: CTDI volume is 26.86 mGy. Dose-length product is 1262.44 mGy*cm FINDINGS: Evaluation of solid organs is limited due to lack of intravenous contrast use. Findings: Lung Bases: No acute or significant lung base finding. Normal heart size. No pleural or pericardial effusion. Liver: The liver is normal in size. No focal lesions. Gallbladder and Biliary Tree: Unremarkable Spleen: Unremarkable Pancreas: Mild inflammatory changes around the pancreas correlate for possible pancreatitis. Adrenal Glands: Unremarkable Kidneys: Kidneys are grossly normal without calculi or hydronephrosis. Bladder: Grossly unremarkable for degree of distention. Bowel: The stomach is grossly normal in appearance. Small bowel and colon are normal in caliber and distribution. The appendix is not visualized; however, no secondary findings of acute appendicitis identified. Ascites: Absent Lymphadenopathy: No mesenteric, retroperitoneal or periportal lymphadenopathy. Abdominal Wall and Mesentery: Unremarkable. Vasculature: The visualized abdominal aorta is normal in size and caliber. Evaluation of abdominal and pelvic vessels is limited due to lack of intravenous contrast. Pelvic Organs: Unremarkable Musculoskeletal: No aggressive focal bony lesions, acute fractures or dislocation. Soft tissues: Unremarkable IMPRESSION: 1. No findings of bowel obstruction. 2. Mild inflammatory stranding around the mesenteric fat of the pancreas correlate for possible pancreatitis. 3. No free air or free fluid. 4. No calcified gallstones. 5. No nephrolithiasis or hydronephrosis. 6. No free air or free fluid. ORDERING PHYSICIAN: DAVE BHATIA RESIDENT PROCEDURE(s): ABDL - ABDOMEN LIMITED REASON: epigastric pain ORDER NUMBER(s): [id number], ACCESSION NUMBER(s): [id number] INDICATION: epigastric pain TECHNIQUE: Multiple real-time sonographic images of the abdomen were obtained. COMPARISON: None FINDINGS: Changes of the hepatic parenchyma consistent with steatosis. The liver measures 16.4 cm. No intrahepatic biliary ductal dilatation is noted. The gallbladder wall measures 0.22 cm and is unremarkable. Stones but no sludge. The common duct measures 0.54 cm and is unremarkable. No pericholecystic fluid is noted. Negative sonographic Patel's sign The right kidney measures 9.4 cm. No hydronephrosis. The pancreas is not well visualized due to obscuration from bowel gas. The visualized portions of the IVC and aorta are grossly unremarkable. IMPRESSION: 1. Gallstones noted gallbladder with no dilatation of the common bile duct. Negative sonographic patel's sign. 2. Liver measures 16.4 cm in length with Steatosis in the parenchyma. SEPSIS Sepsis Screen Date sepsis recognized/suspect: Nov 11, 2024 Time Sepsis recognized/suspect: 1825 Recent Procedure: No On Antibiotic Therapy: No Respiratory Rate >20: No Heart Rate >90: No Temp<36 C (96.8 F) or >38.3 C: No SBP <90 or MAP <65 mmHG: No New Acute Mental Status Change: No Is the patient on CPAP, BIPAP,: No Physician Orders Urinalysis (11/11/24 18:29) Ct Ab Pel Wo Con-No Oral Or Iv (11/11/24 18:29) Npo (Nothing By Mouth) Diet (11/12/24 Breakfast) Abdomen Limited (11/11/24 20:08) Ceftriaxone Ivpb Rocephin (11/12/24 09:00) Ceftriaxone Ivpb Rocephin (11/11/24 23:15) * [facility] (11/11/24 23:06) Metronidazole Ivpb Flagyl (11/12/24 06:00) Metronidazole Ivpb Flagyl (11/11/24 23:15) Glucose Blood (Accu-Chek Comfort Curve T (11/12/24 00:00) Mild Sliding Scale Npo - Q6hr (11/12/24 00:00) Dextrose 50% Syringe (11/11/24 23:15) Admit (11/11/24 23:06) Allergies (11/11/24 23:06) Code Status (11/11/24 23:06) Oxygen Per Hour (11/11/24 23:06) Hydrocodone-Acet 5/325mg Tab ([place] 5/32 (11/11/24 23:15) Ondansetron Hcl (Zofran) (11/11/24 23:15) Complete Blood Count (11/12/24 04:00) Comprehensive Metabolic Panel (11/12/24 04:00) Condition: Serious (11/11/24 23:06) Acetaminophen Tablet (Tylenol Tablet) (11/11/24 23:15) Bedrest With Bathroom Privileg (11/11/24 23:06) Sequential Compression Device (11/11/24 ) Nitroglycerin Sublingual (Ntrostat Subli (11/11/24 23:15) Notify Md Of Changes From Base (11/11/24 23:06) Emergency Dysrhythmia Protocol (11/11/24 23:06) Oxygen By Nasal Cannula (11/11/24 23:06) Lactated Ringers Lr (11/11/24 23:15) Vital Signs Date Time Temp Pulse Resp B/P (MAP) Pulse Ox O2 Delivery O2 Flow Rate FiO2 11/11/24 20:46 64 18 95 Room Air* 0 21 11/11/24 20:45 98.7 64 18 139/72 (94) 95 98.7 11/11/24 18:28 58 11/11/24 18:22 98.0 60 18 117/74 95 98.0 Laboratory Tests Test 11/11/24 18:57 White Blood Count 15.1 10^3/uL (4.4-10.8) H Medications Medications Dose Ordered Sig/Christi Route Start Time Stop Time Status Last Admin Dose Admin Ketorolac Tromethamine 30 mg ONCE ONCE IV 11/11/24 20:15 11/11/24 20:49 DC 11/11/24 21:42 30 MG Lactated Ringer's 1,000 ml @ 1,000 mls/hr Q1H ONCE IV 11/11/24 19:45 11/11/24 20:44 DC 11/11/24 21:42 1,000 MLS/HR Ondansetron HCl 4 mg ONCE ONCE IV 11/11/24 19:45 11/11/24 19:53 DC 11/11/24 21:42 4 MG Assessment/Plan Assessment/Plan Acute pancreatitis Leukocytosis, unspecified Elevated liver enzymes Diabetes mellitus with hyperglycemia Plan 1. Admit to med surge unit 2. Breathing treatment 3. Pain control management 4. IV antibiotic management 5. Management of fluids and electrolytes 6. Consultation for GI 7. Diagnostic test abdomen/pelvis CT 8. DVT prophylaxis-on SCDs 9. Repeat labs CBC, CMP in a.m. 10. Home medication reviewed and reconciled 11. Continue with current medical management 12. Treatment plan discussed with patient and RN. Patient verbalized understanding. Plan discussed with: Patient, Other (RN) My Orders Orders - JELANI POWERS DNP Procedure Category Date Status Time Ceftriaxone Ivpb PHA 11/12/24 Verified Rocephin 09:00 Ceftriaxone Ivpb PHA 11/11/24 Verified Rocephin 23:15 * [facility] CONS 11/11/24 Verified 23:06 Metronidazole Ivpb PHA 11/12/24 Verified Flagyl 06:00 Metronidazole Ivpb PHA 11/11/24 Verified Flagyl 23:15 Glucose Blood PHA 11/12/24 Verified (Accu-Chek Comfort 00:00 Mild Sliding Scale PHA 11/12/24 Verified Npo - Q6hr 00:00 Dextrose 50% Syringe PHA 11/11/24 Verified 23:15 Admit ADMIT 11/11/24 Verified 23:06 Allergies [place] 11/11/24 Verified 23:06 Code Status CODE 11/11/24 Verified 23:06 Oxygen Per Hour RT 11/11/24 Verified 23:06 Hydrocodone-Acet PHA 11/11/24 Verified 5/325mg Tab ([place] 23:15 Ondansetron Hcl PHA 11/11/24 Verified (Zofran) 23:15 Complete Blood Count LAB 11/12/24 Verified 04:00 Comprehensive LAB 11/12/24 Verified Metabolic Panel 04:00 Condition: Serious [place] 11/11/24 Verified 23:06 Acetaminophen Tablet PHA 11/11/24 Verified (Tylenol Tablet) 23:15 Bedrest With Bathroom [facility] 11/11/24 Verified Privileg 23:06 Sequential [facility] 11/11/24 Verified Compression Device Nitroglycerin [facility] 11/11/24 Verified Sublingual (Ntrostat 23:15 Notify Of Changes [facility] 11/11/24 Verified From Base 23:06 Emergency Dysrhythmia [facility] 11/11/24 Verified Protocol 23:06 Oxygen By Nasal RT 11/11/24 Verified Cannula 23:06 Lactated Ringers Lr [facility] 11/11/24 Verified 23:15 Problem List: (1) Acute pancreatitis (2) Leukocytosis, unspecified (3) Elevated liver enzymes (4) Diabetes mellitus with hyperglycemia Date of Service: Nov 11, 2024 Billing Provider: JELANI POWERS DNP Common Visit Codes: [id number] INP/OBS CARE (HIGH) JELANI POWERS DNP Nov 11, 2024 23:17
[2024-11-12] VITALS (9 sets, daily range): BP systolic 111–128; BP diastolic 62–78; PULSE 59–71; RESP 17–18; TEMP 96.7–97.7; O2SAT 95–98
[2024-11-12] MEDS: cefTRIAXone 1GM/50ML D5W 50 ML IV ONE (01:49)
[2024-11-12] MEDS: InsuLIN REG 1unit/0.01ml Soln (100units/ml) SC SCH ×2 (02:15→17:14)
[2024-11-12] MEDS: LACTATED RINGER'S 1,000 ML IV SCH ×2 (02:25→12:07)
[2024-11-12] MEDS: HYDROcodone-ACET 5/325MG TAB PO PRN (02:48)
[2024-11-12] MEDS ORDERED: IBUPROFEN 600 MG TAB PO PRN (04:00)
[2024-11-12 10:19] LABS: Hematocrit 34.4 % (36.0-46.0); Hemoglobin 11.5 g/dL (12.2-16.2); Mean Corpuscular Hemoglobin 30.0 pg (28.0-32.0); Mean Corpuscular Volume 89.9 fL (80.0-100.0); Nucleated Red Blood Cells % 0.1 %
[2024-11-12 10:29] LABS: INR 0.95 (0.9-1.15); Partial Thromboplastin Time 26.3 SEC (24.5-34.5); Prothrombin Time 10.1 sec (9.3-11.8)
[2024-11-12 10:32] LABS: Albumin 3.7 g/dL (3.2-4.8); Anion Gap 8 (5-15); BUN/Creatinine Ratio 21.4 (10.0-20.0); Bilirubin, Total 0.8 mg/dL (0.2-1.0); Blood Urea Nitrogen 18 mg/dL (9-23); Calcium 8.7 mg/dL (8.7-10.4); Carbon Dioxide 29 mmol/L (20-31); Potassium 4.2 mmol/L (3.5-5.1); Sodium 144 mmol/L (136-145); Total Protein 6.0 g/dL (5.7-8.2)
[2024-11-12 10:41] LABS: Alanine Aminotransferase 312 U/L (7-40); Alkaline Phosphatase 208 U/L (46-116); Chloride 107 mmol/L (98-107); Glucose 108 mg/dL (74-106)
[2024-11-12] MEDS ORDERED: DEXTROSE (50%) 50ML SYRG IV PRN (12:00)
--- NOTE | 2024-11-12 14:17 | DVH ---
[id number] MRI MRCP MRI Attending Name: JELANI POWERS COMPARISON: None INDICATION: ; abdominal pain choledocholithiasis TECHNIQUE: MRCP was performed without the use of intravenous contrast using a MRI imaging system. Three-dimensional MRCP was performed using maximum intensity projection reconstruction on an [facility] ent workstation under concurrent supervision. FINDINGS: Visualized lower thorax: Limited imaging of the thorax demonstrates no suspicious pleural or parenchy mal disease. Liver: Hepatic steatosis and hepatomegaly with the liver measuring 18 cm. Gallbladder: Gallstones. No gallbladder wall thickening or pericholecystic edema. Biliary system: There is no intrahepatic or extrahepatic bile duct dilatation. No filling defect to s uggest choledocholithiasis. Spleen: Normal in morphology and signal intensity. Pancreas: Mild peripancreatic stranding and edema. No organized fluid collection. Adrenal glands: Normal in morphology and signal intensity. Kidneys: The kidneys are symmetric in size and appearance. No hydronephrosis. Bilateral renal cysts. Urinary tract: The included ureters, as visualized, are normal in course and caliber. GI tract: The included portions of the bowel are within normal limits. Lymph nodes: No enlarged lymph nodes. Peritoneum: No ascites. Musculoskeletal: The bone marrow signal intensity is within normal limits. IMPRESSION: No intra or extra hepatic biliary ductal dilatation. No MRI evidence of choledocholithiasis. Gallstones without evidence of acute cholecystitis Findings suggestive of pancreatitis.
[2024-11-12] MEDS: ACCU-CHEK COMFORT CURVE STRIP VI SCH ×2 (17:09)
--- NOTE | 2024-11-12 17:18 | DVHPNRES ---
Progress Note Date Seen: Nov 12, 2024 Resident Creating Document: JOE SLADE RESIDENT Medical Necessity Reason Pt with a Central, PICC or Fol: No Subjective Review of Systems 59-year-old female with a past medical history of diabetes mellitus type 2, hyperlipidemia and hypertension presented to [facility] yesterday due to epigastric abdominal pain. Patient reports she has been experiencing epigastric pain, sharp colicky in nature, rating 10/10 numeric scale, localized, associated with nausea, two episodes of vomiting, unable to keep anything down the throat, getting worse that prompted this visit. She denies any shortness of breath, dizziness, sick contacts, or any other complaints. Patient reports that she has a follow up angiography with her veterinary anatomist Dr. Salcido on Friday morning 5:30 a.m. for intermittent chest pain. She denies any chest pain since she has been to the hospital. Past Medical History: DM, High Lipids, HTN Past Surgical History: Appendectomy , 2 sections, bilateral fallopian tube ligation, right ovary removal due to cyst Family History: Reviewed, noncontributory to the management of this case. Past Social History: The patient lives at home, denies smoking, alcohol or illicit drugs abuse. she did drink 24 cans of beer per day for many years until 2010 when her son . She also used to smoke 3 packs per day and quit 15 years ago. ROS: Patient was seen by me at the bedside. Patient complains of epigastric pain which has decreased than before and says that she was able to tolerate Jell-O at 1:00 a.m. in the emergency department. She is hungry and able to tolerate food, has not vomited in the past 12 hours so we put her in a liquid diet. No new active complaints Objective vital signs Vital Sign Date Time Temp Pulse Resp B/P (MAP) Pulse Ox O2 Delivery O2 Flow Rate FiO2 11/12/24 09:00 97.4 60 17 111/75 (87) 96 97.4 11/12/24 08:00 Room Air* 0 21 Total Intake and Output 11/11/24 11/11/24 11/12/24 15:00 23:00 07:00 Intake Total 0 ml Balance 0 ml medications Current Medications Medications Dose Ordered Sig/Christi Route Start Time Stop Time Status Last Admin Dose Admin Ceftriaxone Sodium 50 ml @ 100 mls/hr DAILY@2100 IV 11/12/24 21:00 Metronidazole 100 ml @ 100 mls/hr Q8HR IV 11/12/24 06:00 11/12/24 14:00 100 MLS/HR Acetaminophen/ Hydrocodone Bitart 1 tab Q4HP PRN PO 11/11/24 23:15 11/12/24 02:48 1 TAB Ondansetron HCl 4 mg Q4HP PRN IV 11/11/24 23:15 Nitroglycerin 0.4 mg Q5MINP PRN SL 11/11/24 23:15 Lactated Ringer's 1,000 ml @ 150 mls/hr Q6H40M IV 11/12/24 08:45 11/12/24 12:07 150 MLS/HR Diagnostic Test (Pha) 1 strip ACHS 11/12/24 17:00 11/12/24 17:09 1 STRIP Insulin Human Regular ACHS SC 11/12/24 17:00 11/12/24 17:14 2 UNITS Dextrose 50 ml UD PRN IV 11/12/24 12:00 Pantoprazole Sodium 40 mg DAILY IV 11/12/24 17:00 UNV Enoxaparin Sodium 40 mg DAILY SC 11/13/24 10:00 UNV Examination General Appearance: Alert, Oriented X3, Cooperative, No acute distress, morbidly abuse HEENT: Atraumatic, PERRLA, EOMI, Mucous membr. moist/pink Respiratory: Clear to auscultation, Normal air movement Cardiovascular: Regular rate, Normal S1, Normal S2, No murmurs Abdominal: Normal bowel sounds, Soft, No hepatospenomegaly, No masses, tenderness in epigastric region Extremities: No clubbing, No cyanosis, No edema, Normal pulses Skin: No rashes, No breakdown, Presence of a vertical scar below the umbilicus due to section Neuro: Normal gait, Normal speech, Strength at 5/5 X4 ext, Normal tone, Sensation intact, Cranial nerves 3-12 NL, Reflexes 2+ Psych/Mental Status: Mental status NL, Mood NL laboratory and microbiology Laboratory Tests 11/12/24 09:40 Test 11/12/24 09:40 Range/Units Serum Glucose 108 H 74-106 mg/dL Labs and/or images reviewed: Labs reviewed by me, Image(s) reviewed by me Problem List/Assessment/Plan Problem List/Assessment/Plan #Acute pancreatitis likely d/t Mounjaro use # Cholestatic liver disease # intractable nausea and vomiting # Transamnitis likely SOLOMON #Leukocytosis, not in SIRs -Lipase> 3500 - total bilirubin 2.7, direct bilirubin 1.9 -[place] 5/325 mg tablet q.4 PRN -IV ceftriaxone 1 g -IV metronidazole 500 mg -IV fluids -GI consult pending - Diagnostic test abdomen/pelvis CT - clear liquid diet -ct abd/pelvis: No findings of bowel obstruction; Mild inflammatory stranding around the mesenteric fat of the pancreas correlate for possible pancreatitis; No free air or free fluid; No calcified gallstones; No nephrolithiasis or hydronephrosis; No free air or free fluid. -usg liver: Gallstones noted gallbladder with no dilatation of the common bile duct. Negative sonographic booth's sign; Liver measures 16.4 cm in length with Steatosis in the parenchyma. -MRCP shows: No intra or extra hepatic biliary ductal dilatation. No MRI evidence of choledocholithiasis; Gallstones without evidence of acute cholecystitis; Findings suggestive of pancreatitis. - ALT, AST and ALP downtrending #Diabetes mellitus with hyperglycemia [id number] -Mild sliding scale insulin #hyperlipedimia -ASCVD: 5.3% -atorvastatin 20mg PO HS daily #morbid obesity- BMI 43.5 -patient counseled regarding need for exercise, healthier lifestyle and to lose weight #FLORENCIA -cpap hs GI prophylaxis: Protonix 40 mg IV daily DVT prophylaxis: Lovenox 40 mg subcutaneous daily Diet: clear liquid diet Goals of care discussed with the patient for more than 27 minutes: Full code status Case discussed with Dr. Mcclure, patient and nurse. Plan discussed with: Patient, Other (rn) My Orders My Orders Orders - JOE SLADE Procedure Category Date Status Time Pantoprazole PHA 11/12/24 Logged (Protonix) 17:00 Enoxaparin Sodium PHA 11/13/24 Logged (Lovenox) 10:00 Date of Service: Nov 12, 2024 Billing Provider: RYANNE MCCLURE MD Common Visit Codes: [id number] INP/OBS CARE(HIGH) JOE SLADE Nov 12, 2024 17:18 JASON SETHI RESIDENT Nov 12, 2024 20:06 RYANNE MCCLURE MD Nov 12, 2024 23:48
[2024-11-12 17:19] LABS: Urine Protein, UAD Negative (Negative)
[2024-11-12 17:29] LABS: Opiate Scree,Urine Neg (NEGATIVE)
[2024-11-12 17:37] LABS: Amphetamine Screen, Urine Neg (NEGATIVE); Barbiturate Scree,Urine Neg (NEGATIVE); Benzodiazephine Screen, Urine Neg (NEGATIVE); Cannabinoid Screen, Urine Neg (NEGATIVE); Cocaine Screen, Urine Neg (NEGATIVE); Phencyclidine Screen, Urine Neg (NEGATIVE)
[2024-11-12] MEDS: PANTOPRAZOLE 40 MG/10 ML VIAL INJ IV SCH (18:17)
[2024-11-12 18:36] LABS: COVID19 ANTIGEN SOFIA FIA NEGATIVE (NEGATIVE)
--- NOTE | 2024-11-12 19:55 | DVHCONRES ---
Date Seen: Nov 12, 2024 Resident Creating Document: CONY MOLINA RESIDENT Referring Physician JELANI POWERS DNP Reason for Consultation Acute pancreatitis History of Present Illness 59-year-old female with a past medical history of diabetes mellitus (1011 years, recently on Monjaro for 56 months), hypertension, hyperlipidemia, and obesity (BMI 43.5), presented with epigastric abdominal pain and vomiting. Pain was sharp, colicky, and rated 10/10 at onset. Currently, she reports no abdominal pain, nausea, or vomiting. She tolerated clear liquids and had a bowel movement yesterday. She is breathing comfortably on room air. Interval Progress / Treatment * Symptoms: Improving, pain-free, tolerating clear liquids, no nausea/vomiting. * Diet: Clear liquid diet, tolerating without issues. * Antibiotics: Receiving IV ceftriaxone and IV metronidazole. * Pain control: PRN [place] at bedside. * IVF: Lactated Ringers running. * Bowel function: Bowel movement yesterday, no constipation. Pertinent Labs / Imaging Laboratory Trends: * WBC: 15.1 ? 9.7 (improved, normal) * Hgb: 12.8 ? 11.5 (mild anemia) * Hct: 39.5 ? 34.4 * Lipase: >3500 (very high) * AST: 186 ? 79 (improving) * ALT: 261 ? 208 (improving) * ALP: 261 ? 208 (improving) * T. bili: 2.7 ? 0.8 (improved) * D. bili: 1.9 (elevated) * Cr: 0.8, GFR ~80 (normal) * Lactic acid: normal Imaging: * CT Abd/Pelvis: Mild inflammatory stranding around pancreas ? pancreatitis. No bowel obstruction, no fluid collection. * Ultrasound: Gallstones present, no CBD dilation, hepatic steatosis. * MRCP: Hepatic steatosis and gallstones. No choledocholithiasis, no ductal dilation, mild peripancreatic stranding. Past Medical History DM2, HTN, HLD, obesity Past Surgical History Appendectomy Family History: FH: pancreatic cancer Social History Prior heavy alcohol use (quit 2010), remote tobacco use (quit 15 years ago Allergies: Coded Allergies: Morphine (Verified Allergy, Severe, 02/12/24) Home Meds Active Scripts Metformin Hydrochloride (Metformin Hcl) 500 Mg Tab, 1 TAB PO BID for 30 Days, #60 TAB 3 Refills Prov:CARMELO MACIAS RESIDENT 02/13/24 Nitrofurantoin (Nitrofurantoin) 100 Mg Cap, 1 CAP PO BID for 5 Days, #10 CAP Prov:CARMELO MACIAS RESIDENT 02/13/24 Acetaminophen (Tylenol 8 Hour Arthritis) 650 Mg Tab, 650 MG PO TID, #24 TAB Prov:OSITO MAYER 04/24/23 Meclizine HCl (Meclizine 25) 25 Mg Tab, 25 MG PO Q6HP PRN, #20 TAB 0 Refills Prov:JOSE TERAN MD 08/30/22 Cephalexin Monohydrate (Cephalexin) 500 Mg Cap, 500 MG PO Q6HR for 5 Days, #20 MG Prov:JOSE TERAN MD 08/30/22 Hydrocodone-Acetaminophen (Hydrocodone Bitartrate/AC 5-325 mg) 1 Tab Tab, 1 TAB PO Q6HP PRN, #20 TAB Prov:CHERRI LEMONS PAC 06/17/22 Ibuprofen Micronized (Ibuprofen) 800 Mg Tab, 800 MG PO Q8HP PRN, #30 TAB Prov:CHERRI LEMONS PAC 06/17/22 Current Medications Current Medications Medications (Trade) Dose Ordered Sig/Christi Route PRN Reason Start Time Stop Time Status Last Admin Ceftriaxone Sodium 50 ml @ 100 mls/hr DAILY@2100 IV 11/12/24 21:00 Metronidazole 100 ml @ 100 mls/hr Q8HR IV 11/12/24 06:00 11/12/24 14:00 Diagnostic Test (Pha) (Accu-Chek Comfort Curve T) 1 strip Q6HR 11/12/24 00:00 11/12/24 11:51 DC 11/12/24 06:06 Insulin Human Regular (InsuLIN R) Q6HR SC 11/12/24 00:00 11/12/24 11:51 DC 11/12/24 02:15 Dextrose 50 ml UD PRN IV Blood Sugar LESS THAN 60 11/11/24 23:15 11/12/24 11:51 DC Acetaminophen/ Hydrocodone Bitart ([place] 5/325MG Tab) 1 tab Q4HP PRN PO MODERATE PAIN (4-6 PAIN SCALE) 11/11/24 23:15 11/12/24 02:48 Ondansetron HCl (Zofran) 4 mg Q4HP PRN IV NAUSEA / VOMITING 11/11/24 23:15 Acetaminophen (Tylenol Tablet) 650 mg Q6HP PRN PO PAIN SCALE 1-3 OR TEMP>100.4 11/11/24 23:15 11/12/24 03:52 DC Nitroglycerin (Ntrostat Sublingual) 0.4 mg Q5MINP PRN SL FOR CHEST PAIN 11/11/24 23:15 Lactated Ringer's 1,000 ml @ 100 mls/hr Q10H IV 11/11/24 23:15 11/12/24 08:36 DC 11/12/24 02:25 Ibuprofen (Motrin Tablet) 600 mg Q6HP PRN PO PAIN SCALE 1-3 OR TEMP>100.4 11/12/24 04:00 11/12/24 11:51 DC Lactated Ringer's 1,000 ml @ 150 mls/hr Q6H40M IV 11/12/24 08:45 11/12/24 12:07 Diagnostic Test (Pha) (Accu-Chek Comfort Curve T) 1 strip ACHS 11/12/24 17:00 11/12/24 17:09 Insulin Human Regular (InsuLIN R) ACHS SC 11/12/24 17:00 11/12/24 17:14 Dextrose 50 ml UD PRN IV Blood Sugar LESS THAN 60 11/12/24 12:00 Pantoprazole Sodium (Protonix) 40 mg DAILY IV 11/12/24 17:00 11/12/24 18:17 Enoxaparin Sodium (Lovenox) 40 mg DAILY SC 11/13/24 10:00 Atorvastatin Calcium (Lipitor) 20 mg HS PO 11/12/24 22:00 Review of Systems * Abdominal pain: Resolved * Nausea/vomiting: None * Appetite: Hungry, tolerating clear liquids * Bowel habits: Had bowel movement yesterday * No melena, hematemesis, or hematochezia Vital Signs Vital Signs Date Time Temp Pulse Resp B/P (MAP) Pulse Ox O2 Delivery O2 Flow Rate FiO2 11/12/24 17:00 97.5 70 17 124/76 (92) 98 97.5 11/12/24 08:00 Room Air* 0 21 Physical Exam * Abdomen: Obese, soft, non-tender, no guarding or rebound, bowel sounds prese nt. * No jaundice, no ascites, no organomegaly. Labs/Diagnostic Data Labs Test 11/12/24 16:29 11/12/24 16:00 11/12/24 11:55 11/12/24 09:40 Range/Units POC Glucose 153 H 70-106 mg/dl Influenza Type A Antigen Negative Negative Influenza Type B Antigen Negative Negative SARS-CoV-2 Antigen (Rapid) Negative NEGATIVE Urine Color Yellow Yellow Urine Clarity Clear Clear Urine pH 6.5 5.0-9.0 Urine Specific [place] 1.018 1.001-1.035 Urine Protein Negative Negative Urine Ketones Negative Negative Urine Blood Negative Negative /uL Urine Nitrite Negative Negative Urine Bilirubin Negative Negative Urine Urobilinogen 2 H Negative mg/dL Urine Leukocyte Esterase 2+ Negative /uL Urine RBC 3 0 - 4 /hpf Urine Microscopic WBC 7 H 0-5 /HPF Urine Squamous Epithelial Cells Few <5 /hpf Urine Bacteria Few H None Seen /hpf Urine Glucose Normal Normal mg/dL Urine Opiates Screen Neg NEGATIVE Urine Fentanyl Screen Neg NEGATIVE Urine Barbiturates Screen Neg NEGATIVE Urine Phencyclidine Screen Neg NEGATIVE Urine Amphetamines Screen Neg NEGATIVE Urine Benzodiazepines Screen Neg NEGATIVE Urine Cocaine Screen Neg NEGATIVE Urine Cannabinoids Screen Neg NEGATIVE White Blood Count 9.7 # 4.4-10.8 10^3/uL Red Blood Count 3.83 L 4.0-5.20 10^6/uL Hemoglobin 11.5 L 12.2-16.2 g/dL Hematocrit 34.4 #L 36.0-46.0 % Mean Corpuscular Volume 89.9 80.0-100.0 fL Mean Corpuscular Hemoglobin 30.0 28.0-32.0 pg Mean Corpuscular Hemoglobin Concent 33.4 32.0-36.0 g/dL Red Cell Distribution Width 15.7 H 11.8-14.3 % Platelet Count 186 140-450 10^3/uL Mean Platelet Volume 10.8 6.9-10.8 fL Neutrophils (%) (Auto) 67.4 37.0-80.0 % Lymphocytes (%) (Auto) 24.1 10.0-50.0 % Monocytes (%) (Auto) 7.2 0.0-12.0 % Eosinophils (%) (Auto) 1.1 0.0-7.0 % Basophils (%) (Auto) 0.2 0.0-2.0 % Neutrophils # (Auto) 6.5 1.6-8.6 10 ^3/uL Lymphocytes # (Auto) 2.3 0.4-5.4 10 ^3/uL Monocytes # (Auto) 0.7 0-1.3 10 ^3/uL Eosinophils # (Auto) 0.1 0-0.8 10 ^3/uL Basophils # (Auto) 0 0-0.2 10 ^3/uL Nucleated Red Blood Cells 0.1 % Prothrombin Time 10.1 9.3-11.8 sec Prothrombin Time INR 0.95 0.9-1.15 Activated Partial Thromboplast Time 26.3 24.5-34.5 SEC Sodium Level 144 136-145 mmol/L Potassium Level 4.2 3.5-5.1 mmol/L Chloride Level 107 98-107 mmol/L Carbon Dioxide Level 29 20-31 mmol/L Anion Gap 8 5-15 Blood Urea Nitrogen 18 9-23 mg/dL Creatinine 0.84 0.550-1.02 mg/dL Glomerular Filtration Rate Calc 80 >90 mL/min BUN/Creatinine Ratio 21.4 H 10.0-20.0 Serum Glucose 108 H 74-106 mg/dL Hemoglobin A1c 6.0 H <5.7 % A1C Lactic Acid Level 0.8 0.4-2.0 mmol/L Calcium Level 8.7 8.7-10.4 mg/dL Magnesium Level 2.0 1.6-2.6 mg/dL Total Bilirubin 0.8 0.2-1.0 mg/dL Aspartate Amino Transferase (AST) 79 H 13-40 U/L Alanine Aminotransferase (ALT) 312 H 7-40 U/L Alkaline Phosphatase 208 H 46-116 U/L Total Protein 6.0 5.7-8.2 g/dL Albumin 3.7 3.2-4.8 g/dL Vitamin B12 Level 434 211-911 pg/mL Vitamin D 25-Hydroxy 37.0 30.0-100 ng/mL Thyroid Stimulating Hormone (TSH) 0.99 0.55-4.78 uIU/mL Test 11/11/24 18:57 11/11/24 18:37 Range/Units Direct Bilirubin 1.9 H <0.3 mg/dL Lipase > 3500 H 12-53 U/L Plasma/Serum Blood Alcohol < 3.0 <10 mg/dL Triglycerides Level 187 H < 150 mg/dL Cholesterol Level 188 < 200 mg/dL LDL Cholesterol 112 H < 100 mg/dL HDL Cholesterol 44 40-59 mg/dL Assessment 1. Acute pancreatitis, multifactorial (Rule in: gallstone-related vs drug- induced due to Mounjaro; Rule out: alcohol, hypertriglyceridemia, idiopathic). 2. Cholelithiasis without choledocholithiasis (MRCP negative for ductal stones, no CBD dilation). 3. Hepatic steatosis with transaminitis (likely SOLOMON, improving). 4. Obesity (BMI 43.5) contributing risk factor. Plan/Recommendation Plan GI / Hepatobiliary: * Continue clear liquid diet as tolerated; advance to soft diet if remains pain- free. * Monitor lipase, LFTs, bilirubin daily. * Antibiotics: Continue IV ceftriaxone and metronidazole (though not always indicated in pancreatitis, reasonable given concern for cholangitis/choledocholithiasis initially). Reassess need daily. * Pain control: [place] PRN. Avoid NSAIDs given GI risk. * IV fluids: Continue Lactated Ringers; monitor intake/output, electrolytes. * ERCP not indicated at this time (no choledocholithiasis, no cholangitis, bili improving). * Surgical referral: Recommend elective cholecystectomy during or after current admission once stable, to prevent recurrence of gallstone pancreatitis. Nutrition: * Clear liquid diet ? advance to soft diet as tolerated. * Monitor for fat intolerance. 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 Differentials to rule out: * Gallstone pancreatitis (likely, given gallstones + bili fluctuations). * Drug-induced pancreatitis (GLP-1 receptor agonist: Monjaro). * Hypertriglyceridemia-related (not supported, TG 187). * Alcohol-induced (less likely, no recent use). Prophylaxis: * GI: IV PPI (Pantoprazole 40 mg daily). We will monitor the patient closely.After discharge patient needs outpatient GI follow for steatohepatitis and medication management. Plan discussed with: Patient CONY MOLINA RESIDENT Nov 12, 2024 19:55
[2024-11-12] MEDS: cefTRIAXone 1GM/50ML D5W 50 ML IV SCH (20:38)
[2024-11-12] MEDS: ATORVASTATIN 20 MG TAB PO SCH (21:01)
[2024-11-13] VITALS (8 sets, daily range): BP systolic 113–134; BP diastolic 54–76; PULSE 70–81; RESP 18–21; TEMP 97.8–99.1; O2SAT 92–100
[2024-11-13 06:43] LABS: Hematocrit 34.0 % (36.0-46.0); Hemoglobin 11.2 g/dL (12.2-16.2); Mean Corpuscular Hemoglobin 30.0 pg (28.0-32.0); Mean Corpuscular Volume 90.6 fL (80.0-100.0); Nucleated Red Blood Cells % 0.0 %
[2024-11-13 07:06] LABS: Albumin 3.6 g/dL (3.2-4.8); Anion Gap 7 (5-15); BUN/Creatinine Ratio 11.5 (10.0-20.0); Bilirubin, Total 0.7 mg/dL (0.2-1.0); Carbon Dioxide 28 mmol/L (20-31); Potassium 4.3 mmol/L (3.5-5.1); Sodium 143 mmol/L (136-145); Total Protein 5.7 g/dL (5.7-8.2)
[2024-11-13 07:07] LABS: Alanine Aminotransferase 210 U/L (7-40); Alkaline Phosphatase 180 U/L (46-116); Blood Urea Nitrogen 9 mg/dL (9-23); Calcium 8.4 mg/dL (8.7-10.4); Chloride 108 mmol/L (98-107); Glucose 123 mg/dL (74-106)
[2024-11-13] MEDS: ENOXAPARIN SOD 40 MG/0.4 ML SYRINGE SC SCH (09:23)
[2024-11-13] MEDS: POLYETHYLENE GLYCOL 17 GM PWDR PO ONE (09:58)
--- NOTE | 2024-11-13 16:05 | DVHDSRES ---
Discharge Summary Date of Admission Resident Creating Document: JOE SLADE RESIDENT Nov 11, 2024 at 23:06 Date of Discharge: Nov 13, 2024 Admitting Diagnosis Epigastric pain and vomiting Labs/Diagnostic Data: Laboratory Results Test 11/13/24 11:47 11/13/24 05:26 11/12/24 16:00 11/12/24 11:55 POC Glucose 185 mg/dl (70-106) White Blood Count 10.6 10^3/uL (4.4-10.8) Red Blood Count 3.75 10^6/uL (4.0-5.20) Hemoglobin 11.2 g/dL (12.2-16.2) Hematocrit 34.0 % (36.0-46.0) Mean Corpuscular Volume 90.6 fL (80.0-100.0) Mean Corpuscular Hemoglobin 30.0 pg (28.0-32.0) Mean Corpuscular Hemoglobin Concent 33.1 g/dL (32.0-36.0) Red Cell Distribution Width 15.6 % (11.8-14.3) Platelet Count 177 10^3/uL (140-450) Mean Platelet Volume 11.6 fL (6.9-10.8) Neutrophils (%) (Auto) 63.8 % (37.0-80.0) Lymphocytes (%) (Auto) 25.3 % (10.0-50.0) Monocytes (%) (Auto) 7.8 % (0.0-12.0) Eosinophils (%) (Auto) 2.7 % (0.0-7.0) Basophils (%) (Auto) 0.4 % (0.0-2.0) Neutrophils # (Auto) 6.8 10 ^3/uL (1.6-8.6) Lymphocytes # (Auto) 2.7 10 ^3/uL (0.4-5.4) Monocytes # (Auto) 0.8 10 ^3/uL (0-1.3) Eosinophils # (Auto) 0.3 10 ^3/uL (0-0.8) Basophils # (Auto) 0 10 ^3/uL (0-0.2) Nucleated Red Blood Cells 0.0 % Sodium Level 143 mmol/L (136-145) Potassium Level 4.3 mmol/L (3.5-5.1) Chloride Level 108 mmol/L (98-107) Carbon Dioxide Level 28 mmol/L (20-31) Anion Gap 7 (5-15) Blood Urea Nitrogen 9 mg/dL (9-23) Creatinine 0.78 mg/dL (0.550-1.02) Glomerular Filtration Rate Calc 87 mL/min (>90) BUN/Creatinine Ratio 11.5 (10.0-20.0) Serum Glucose 123 mg/dL (74-106) Calcium Level 8.4 mg/dL (8.7-10.4) Total Bilirubin 0.7 mg/dL (0.2-1.0) Aspartate Amino Transferase (AST) 36 U/L (13-40) Alanine Aminotransferase (ALT) 210 U/L (7-40) Alkaline Phosphatase 180 U/L (46-116) Total Protein 5.7 g/dL (5.7-8.2) Albumin 3.6 g/dL (3.2-4.8) Lipase 75 U/L (12-53) Influenza Type A Antigen Negative (Negative) Influenza Type B Antigen Negative (Negative) SARS-CoV-2 Antigen (Rapid) Negative (NEGATIVE) Urine Color Yellow (Yellow) Urine Clarity Clear (Clear) Urine pH 6.5 (5.0-9.0) Urine Specific [place] 1.018 (1.001-1.035) Urine Protein Negative (Negative) Urine Ketones Negative (Negative) Urine Blood Negative /uL (Negative) Urine Nitrite Negative (Negative) Urine Bilirubin Negative (Negative) Urine Urobilinogen 2 mg/dL (Negative) Urine Leukocyte Esterase 2+ /uL (Negative) Urine RBC 3 /hpf (0 - 4) Urine Microscopic WBC 7 /HPF (0-5) Urine Squamous Epithelial Cells Few /hpf (<5) Urine Bacteria Few /hpf (None Seen) Urine Glucose Normal mg/dL (Normal) Urine Opiates Screen Neg (NEGATIVE) Urine Fentanyl Screen Neg (NEGATIVE) Urine Barbiturates Screen Neg (NEGATIVE) Urine Phencyclidine Screen Neg (NEGATIVE) Urine Amphetamines Screen Neg (NEGATIVE) Urine Benzodiazepines Screen Neg (NEGATIVE) Urine Cocaine Screen Neg (NEGATIVE) Urine Cannabinoids Screen Neg (NEGATIVE) Test 11/12/24 09:40 11/11/24 18:57 11/11/24 18:37 Prothrombin Time 10.1 sec (9.3-11.8) Prothrombin Time INR 0.95 (0.9-1.15) Activated Partial Thromboplast Time 26.3 SEC (24.5-34.5) Hemoglobin A1c 6.0 % A1C (<5.7) Lactic Acid Level 0.8 mmol/L (0.4-2.0) Magnesium Level 2.0 mg/dL (1.6-2.6) Vitamin B12 Level 434 pg/mL (211-911) Vitamin D 25-Hydroxy 37.0 ng/mL (30.0-100) Thyroid Stimulating Hormone (TSH) 0.99 uIU/mL (0.55-4.78) Direct Bilirubin 1.9 mg/dL (<0.3) Plasma/Serum Blood Alcohol < 3.0 mg/dL (<10) Triglycerides Level 187 mg/dL (< 150) Cholesterol Level 188 mg/dL (< 200) LDL Cholesterol 112 mg/dL (< 100) HDL Cholesterol 44 mg/dL (40-59) Other Laboratory Tests 11/13/24 05:26 Brief Hx & Hospital Course: 59-year-old female with a past medical history of diabetes mellitus type 2, hyperlipidemia and hypertension presented to [facility] yesterday due to epigastric abdominal pain. Patient reports she has been experiencing epigastric pain, sharp colicky in nature, rating 10/10 numeric scale, localized, associated with nausea, two episodes of vomiting, unable to keep anything down the throat, getting worse that prompted this visit. She denies any shortness of breath, dizziness, sick contacts, or any other complaints. Patient reports that she has a follow up angiography with her quality consultant Dr. Salcido on Friday morning 5:30 a.m. for intermittent chest pain. She denies any chest pain since she has been to the hospital. Past Medical History: DM, High Lipids, HTN Past Surgical History: Appendectomy , 2 sections, bilateral fallopian tube ligation, right ovary removal due to cyst Family History: Reviewed, noncontributory to the management of this case. Past Social History: The patient lives at home, denies smoking, alcohol or illicit drugs abuse. she did drink 24 cans of beer per day for many years until 2010 when her son . She also used to smoke 3 packs per day and quit 15 years ago. Brief history of hospitalization: Patient came in with epigastric pain that was unbearable with 2 episodes of vomiting . Labs showed a lipase of more than 3500 and leukocytosis as well as hyperbilirubinemia. We gave the patient pain medication [place] 5/325 mg tablet q.4 PRN and IV fluids. CT abdomen pelvis was done which showed mild inflammatory stranding around the mesenteric fat of the pancreas correlate for possible pancreatitis. USG liver showed gallstones noted in gallbladder with no dilation of the common bile duct; Negative sonographic Patel sign; liver measuring 6.4 cm in length with steatosis in the parenchyma. Patient was given IV ceftriaxone 1 g IV, metronidazole 500 mg during the course of hospitalization. MRCP was done which showed no intra or extra biliary duct dilation; No MR evidence of choledocholithiasis, gallstones without evidence of acute cholecystitis, and findings suggestive of pancreatitis. GI consult was done and we are monitoring him daily. Patient reported she has been taking Mounjaro and this could likely be the cause of her acute pancreatitis. We continued to monitor the patient's ALT, AST, ALP which was down trending. For patient's hyperlipidemia with the ASCVD score of 5.3, we continued atorvastatin 20 mg daily and for diabetes mellitus with hypoglycemia and HbA1c of 6.0 we started mild sliding scale insulin. Patient is morbidly obese with a BMI of 43.5 and has been counseled regarding exercise, diet control and healthy lifestyle. During this hospitalization we also gave IV Protonix 40 mg for GI prophylaxis and DVT prophylaxis with Lovenox 40 mg daily subcutaneously. patient was kept NPO the beginning, slowly given full liquid diet and then a soft diet as tolerated. Patient's epigastric pain has decreased and lipase levels have come back to Normal at 75, markedly decreased from initial presentation of >3500. We also gave her CPAP at night for her obstructive sleep apnea. During hospitalization patient also complained that she had not passed stool 3 days so we gave her MiraLAX after which she had a bowel movement. She reported that she takes MiraLAX daily at home. We have counseled her regarding taking a more fibrous diet and increasing her intake of fluids rather than being dependent on MiraLAX. Patient is now stable and can be discharged. She has agreed with the discharge plan. General Appearance: Alert, Oriented X3, Cooperative, No acute distress, morbidly abuse HEENT: Atraumatic, PERRLA, EOMI, Mucous membr. moist/pink Respiratory: Clear to auscultation, Normal air movement Cardiovascular: Regular rate, Normal S1, Normal S2, No murmurs Abdominal: Normal bowel sounds, Soft, No hepatospenomegaly, No masses, tenderness in epigastric region Extremities: No clubbing, No cyanosis, No edema, Normal pulses Skin: No rashes, No breakdown, Presence of a vertical scar below the umbilicus due to section Neuro: Normal gait, Normal speech, Strength at 5/5 X4 ext, Normal tone, Sensation intact, Cranial nerves 3-12 NL, Reflexes 2+ Psych/Mental Status: Mental status NL, Mood NL Operations or Procedures Exam: CT CT AB PEL WO CON-NO ORAL OR IV History: Epigastric pain IMPRESSION: 1. No findings of bowel obstruction. 2. Mild inflammatory stranding around the mesenteric fat of the pancreas correlate for possible pancreatitis. 3. No free air or free fluid. 4. No calcified gallstones. 5. No nephrolithiasis or hydronephrosis. 6. No free air or free fluid. PROCEDURE(s): ABDL - ABDOMEN LIMITED REASON: epigastric pain IMPRESSION: 1. Gallstones noted gallbladder with no dilatation of the common bile duct. Negative sonographic patel's sign. 2. Liver measures 16.4 cm in length with Steatosis in the parenchyma. MRI MRCP MRI INDICATION: ; abdominal pain choledocholithiasis IMPRESSION: -No intra or extra hepatic biliary ductal dilatation. No MRI evidence of choledocholithiasis. -Gallstones without evidence of acute cholecystitis -Findings suggestive of pancreatitis. Condition at Discharge: Stable Final Diagnosis/Problems List #Acute pancreatitis likely d/t Mounjaro use # Cholestatic liver disease # intractable nausea and vomiting # Transamnitis likely SOLOMON #Leukocytosis, not in SIRs #Diabetes mellitus with hyperglycemia [id number] #hyperlipedimia #morbid obesity- BMI 43.5 #[place]OR[place] Discharge Disposition: Home Discharge Instruct/Medications Diet: Consistent carbohydrate, Cardiac 2g Na,low cholest Diet comment: Cardiac 2g Na, low cholesterol Consistent carbohydrate Plenty of fluid, take fibrous diet Activity: No Restrictions, As Tolerated Follow Up/Referral: Follow up with primary care physician in 10 days Follow up discharge clinic within 7 days Medications: Resume home medications Scheduled Acetaminophen (Tylenol 8 Hour Arthritis), 650 MG PO TID Cephalexin Monohydrate (Cephalexin), 500 MG PO Q6HR Metformin Hydrochloride (Metformin Hcl), 1 TAB PO BID Nitrofurantoin (Nitrofurantoin), 1 CAP PO BID Scheduled PRN Hydrocodone-Acetaminophen (Hydrocodone Bitartrate/AC 5-325 mg), 1 TAB PO Q6HP PRN Ibuprofen Micronized (Ibuprofen), 800 MG PO Q8HP PRN Meclizine HCl (Meclizine 25), 25 MG PO Q6HP PRN Discharge Statement: "Patient was advised to return to the ER or call 911 if any headaches, dizziness, shortness of breath, chest pain, abdominal pain, bleeding, fevers, or worsening of medical condition. Patient was counseled about treatment plan, medications, possible side effects, patientverbalized understanding. All questions were answered to the best of my ability. This discharge took greater then 30 minutes in planning, reviewing documentation, counseling the patient, and discussing with other team members." ASSESSMENT ASSESSMENT Assessment Acute pancreatitis likely due to Mounjaro use JOE SLADE RESIDENT Nov 13, 2024 16:05
== END 2024-11-13 16:40 | disposition home or self-care (01) | DRG 282 ==
LOC: ER 18:17 → EDUNIT# 18:17 → EDBD 18:17 → OVERFLOW 23:06 → CENTRAL 11-12 01:27
PROVIDERS: ADMIT Nurse Practitioner Family; ATTEND Nurse Practitioner Family
PROC: 5A09357 Assistance with Respiratory Ventilation, Less than 24 Consecutive Hours, Continuous Positive Airway Pressure (ICD-10-PCS; principal; 2024-11-12)
DX: K85.90 Acute pancreatitis without necrosis or infection, unspecified (principal); K75.81 Nonalcoholic steatohepatitis (NASH); E11.65 Type 2 diabetes mellitus with hyperglycemia; E78.5 Hyperlipidemia, unspecified; R74.8 Abnormal levels of other serum enzymes; Z20.822 Contact with and (suspected) exposure to COVID-19; R74.01 Elevation of levels of liver transaminase levels; I10 Essential (primary) hypertension; E66.01 Morbid (severe) obesity due to excess calories; G47.33 Obstructive sleep apnea (adult) (pediatric); K80.20 Calculus of gallbladder without cholecystitis without obstruction; K76.9 Liver disease, unspecified; F12.90 Cannabis use, unspecified, uncomplicated; Z88.5 Allergy status to narcotic agent; Z90.49 Acquired absence of other specified parts of digestive tract; Z82.49 Family history of ischemic heart disease and other diseases of the circulatory system; Z68.41 Body mass index [BMI] 40.0-44.9, adult; Z79.4 Long term (current) use of insulin; Z80.8 Family history of malignant neoplasm of other organs or systems; Z87.891 Personal history of nicotine dependence
CPT/HCPCS: 36415; 74176; 74181; 76705; 80048; 80053; 80061; 80076; 80307; 80320; 81001; 82306; 82607; 82962; 83036; 83605; 83690; 83735; 84443; 85025; 85610; 85730; 87426; 87804; 93005; 94660; 96361; 96374; 96375; G0378; J1815; J1885; J2405; J2470; J3490

== ENCOUNTER 2024-12-12 18:08 | Inpatient (IN) | payer MEDICAID ==
[~2024-12-12] VITALS: Ht 152.4 cm; Wt 115.8 kg
--- NOTE | 2024-12-12 18:32 | ECG ---
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
--- NOTE | 2024-12-12 19:42 | ED.PDOC ---
History of Present Illness HPI Comments 59-year-old female is brought in by ambulance for chief complaint of nonradiating, epigastric abdominal pain, nausea, vomiting, and constipation. Patient endorses on unprovoked and atraumatic onset of symptoms, which have been progressive worsening, since this morning. Pain is a 10/10 in severity. Last bowel movement was this morning and normal in appearance. Patient reports on previous episode of similar pain 1 month ago in which she was told on having some pancreatic related issue then. Significant history of chronic pain syndrome, diabetes, hyperlipidemia, hypertension, osteoporosis, appendectomy, and left oophorectomy. Patient denies having any bloody or bilious vomitus, magdiel rrhea, urinary symptoms, fever, chills, or further associated symptoms. REVIEW OF SYSTEMS: General: No fever, no chills, or fatigue HEENT: No sore throat, no earache, no congestion, no neck pain. Cardiac: No chest pain. No palpitations. Lungs: No shortness of breath, no cough. GI: Abdominal pain, nausea, vomiting, constipation, no diarrhea : No dysuria, frequency, or urgency. No hematuria. Musculoskeletal: No joint pain , no joint swelling, no extremity edema. Skin: No rash, no itching. Neuro: No headache, no dizziness, no weakness PHYSICAL EXAM: General: Awake, alert and oriented. No acute distress. Skin: Skin in warm, dry and intact. Appropriate color for ethnicity. HEENT: The head is normocephalic and atraumatic. Conjunctivae are clear without exudates or hemorrhage. Sclera is non-icteric. EOM are intact. No signs of nystagmus. Eyelids are normal in appearance without swelling or lesions. Oral mucosa is pink and moist Neck: The neck is supple with normal range of motion. No JVD. Cardiac: Heart rate and rhythm are normal. No murmurs, gallops, or rubs are auscultated. Respiratory: No signs of respiratory distress. Lung sounds are clear in all lobes bilaterally without rales, rhonchi, or wheezes. Abdominal: Epigastric tenderness. Otherwise, remaining abdomen is soft, non- tender without distention, guarding or rigidity. Bowel sounds are present and normoactive in all four quadrants. Extremities: Upper and lower extremities are atraumatic in appearance without deformity or edema. Neurological: The patient is awake, alert and oriented to person, place, and time with normal speech. Speech is clear. There is no facial asymmetry. Psychiatric: Appropriate mood and affect. Good judgement and insight. Chief Complaint: Abdominal Pain Time Seen by MD: 19:30 Primary Care Provider: STEFFEN Shen Notes: Nurses Notes, Allied Health Professional Notes, Medications, Allergies Allergies: Coded Allergies: Morphine (Verified Allergy, Severe, 02/12/24) Home Meds Reported Medications Glipizide (Glipizide Er) 10 Mg Tab, 1 TAB PO DAILY 12/13/24 Empagliflozin (Jardiance) 10 Mg Tab, 1 TAB PO DAILY 12/13/24 Aspirin (Aspirin Low Dose) 81 Mg Tab, 1 TAB PO DAILY 12/13/24 Loratadine (CLARITIN TABLET) 10 Mg Tb, 1 TAB PO DAILY 12/13/24 Lisinopril (Lisinopril) 40 Mg Tab, 1 TAB PO DAILY 12/13/24 Amlodipine Besylate (Amlodipine Besylate) 5 Mg Tab, 1 TAB PO DAILY 12/13/24 Fenofibrate (Fenofibrate) 160 Mg Tab, 1 TAB PO DAILY 12/13/24 Information Source: Patient, Emergency Med Personnel Mode of Arrival: EMS Past Medical History PAST MEDICAL HISTORY: DM, High Lipids, HTN Surgical History: Appendectomy [employer] CERT[employer]IED NETWORK ASSOCIATE History: No Pertinent [employer]IED NETWORK ASSOCIATE History Family History Family History: Reviewed,noncontributory to illness, Family hx of Cancer, Family hx of HTN Social History Smoker: Non-Smoker Alcohol: Denies ETOH Use Drugs: Denies Drug Use Lives In: Home Was a procedure done? Was a procedure done?: No EKG EKG : Pulse Rate (adult): 61 [place]: Normal Cardiac Rhythm: NSR Block: None Hypertrophy: None ST: Normal Differential Dx Considerations may include: Differential diagnoses considered include: Abdominal aortic aneurysm, SC, esophageal rupture, intestinal obstruction, mesenteric ischemia, perforated viscus or solid organ rupture, CHF with hepatomegaly, pneumonia, abscess, appen dicitis, biliary disease, diverticulitis, gastritis, gastroenteritis, hepatitis, hernia, inflammatory bowel disease, pancreatitis, peptic ulcer disease, urinary tract infection, ureteral colic, constipation, GERD, irritable syndrome, abdominal wall pain, nonspecific abdominal pain, herpes zoster, nephrolithiasis. X-Ray, Labs, Meds, VS Vital Signs Date Time Temp Pulse Resp B/P (MAP) Pulse Ox O2 Delivery O2 Flow Rate FiO2 12/13/24 02:40 98.8 70 18 152/83 (106) 96 98.8 12/12/24 21:14 98.4 63 18 156/81 (106) 95 98.4 12/12/24 21:14 63 95 Room Air 12/12/24 19:42 61 12/12/24 18:16 98.5 65 16 144/83 98 98.5 12/12/24 18:13 61 Lab Test 12/12/24 19:50 Range/Units White Blood Count 11.7 H 4.4-10.8 10^3/uL Red Blood Count 4.65 4.0-5.20 10^6/uL Hemoglobin 13.6 12.2-16.2 g/dL Hematocrit 42.1 36.0-46.0 % Mean Corpuscular Volume 90.6 80.0-100.0 fL Mean Corpuscular Hemoglobin 29.3 28.0-32.0 pg Mean Corpuscular Hemoglobin Concent 32.4 32.0-36.0 g/dL Red Cell Distribution Width 15.1 H 11.8-14.3 % Platelet Count 245 140-450 10^3/uL Mean Platelet Volume 11.3 H 6.9-10.8 fL Neutrophils (%) (Auto) 78.2 37.0-80.0 % Lymphocytes (%) (Auto) 15.5 10.0-50.0 % Monocytes (%) (Auto) 4.6 0.0-12.0 % Eosinophils (%) (Auto) 1.1 0.0-7.0 % Basophils (%) (Auto) 0.6 0.0-2.0 % Neutrophils # (Auto) 9.2 H 1.6-8.6 10 ^3/uL Lymphocytes # (Auto) 1.8 0.4-5.4 10 ^3/uL Monocytes # (Auto) 0.5 0-1.3 10 ^3/uL Eosinophils # (Auto) 0.1 0-0.8 10 ^3/uL Basophils # (Auto) 0.1 0-0.2 10 ^3/uL Nucleated Red Blood Cells 0.0 % Sodium Level 135 L 136-145 mmol/L Potassium Level 4.4 3.5-5.1 mmol/L Chloride Level 100 98-107 mmol/L Carbon Dioxide Level 25 20-31 mmol/L Anion Gap 10 5-15 Blood Urea Nitrogen 20 9-23 mg/dL Creatinine 0.93 0.550-1.02 mg/dL Glomerular Filtration Rate Calc 70 >90 mL/min BUN/Creatinine Ratio 21.5 H 10.0-20.0 Serum Glucose 309 H 74-106 mg/dL Calcium Level 9.4 8.7-10.4 mg/dL Total Bilirubin 0.6 0.2-1.0 mg/dL Aspartate Amino Transferase (AST) 36 13-40 U/L Alanine Aminotransferase (ALT) 169 H 7-40 U/L Alkaline Phosphatase 296 H 46-116 U/L Total Protein 8.0 5.7-8.2 g/dL Albumin 4.4 3.2-4.8 g/dL Lipase 48 12-53 U/L Current Medications Medications (Trade) Dose Ordered Sig/Christi Route Start Time Stop Time Status Last Admin Piperacillin Sod/ Tazobactam Sod 100 ml @ 100 mls/hr ONCE ONCE IV 12/12/24 22:15 12/12/24 23:14 DC 12/13/24 03:09 Time of 1ST Reevaluation: 20:00 Reevaluation 1ST: Unchanged Patient Education/Counseling: Treatment Family Education/Counseling: No Family Present SEPSIS Sepsis Screen Date sepsis recognized/suspect: Dec 12, 2024 Time Sepsis recognized/suspect: 1804 Recent Procedure: No On Antibiotic Therapy: No Respiratory Rate >20: No Heart Rate >90: No Temp<36 C (96.8 F) or >38.3 C: No SBP <90 or MAP <65 mmHG: No New Acute Mental Status Change: No Is the patient on CPAP, BIPAP,: No Physician Orders Ct Ab Pel With Iv Con Only (12/12/24 19:36) Saline Lock (12/12/24 19:36) Vital Signs Date Time Temp Pulse Resp B/P (MAP) Pulse Ox O2 Delivery O2 Flow Rate FiO2 12/13/24 02:40 98.8 70 18 152/83 (106) 96 98.8 12/12/24 21:14 98.4 63 18 156/81 (106) 95 98.4 12/12/24 21:14 63 95 Room Air 12/12/24 19:42 61 12/12/24 18:16 98.5 65 16 144/83 98 98.5 12/12/24 18:13 61 Laboratory Tests Test 12/12/24 19:50 White Blood Count 11.7 10^3/uL (4.4-10.8) H Departure 1 Departure Time of Disposition: 22:02 Impression: Primary Impression: Hyperglycemia Additional Impressions: Elevated LFTs Thickening of wall of gallbladder Disposition: ADMITTED INPATIENT Condition: Stable Comments MDM: Patient admitted to hospitalist service for further treatment, evaluation and monitoring. Extensive evaluation was performed in attempt to identify or rule out: (See differential diagnosis section) The following tests were ordered, and results were reviewed by me and discussed with patient: (See diagnostic results section) The following test were independently interpreted by me: N/A I reviewed and agreed with the following test results read by other providers: CT of the abdomen and pelvis with IV contrast I reviewed the following notes from the pt's past medical encounters: November 11, 2024 encounter for acute pancreatitis Additional information was gathered from interviewing the following independent historians: EMS personnel Decision regarding hospitalization or escalation of hospital level of care: Risk and benefits of admission for further treatment of patient's condition was considered. Due to patient's current clinical condition, high risk of decline and poor outcome if discharged and need for further inpatient management and monitoring, patient will be admitted to the hospital. Critical Care Note Critical Care Time?: No Stability Stability form required: No Heart Score Heart Score: Heart Score Response (Comments) Value History N/A 0 EKG N/A 0 Age N/A 0 Risk Factors N/A 0 Troponin N/A 0 Total 0 I personally scribed for TAMERA FRASER MD ([email or web address]) on 12/12/24 at 19:42. Electronically submitted by Adam Beckham ([email or web address]). TAMERA FRASER MD Dec 12, 2024 19:42
[2024-12-12 20:12] LABS: Hematocrit 42.1 % (36.0-46.0); Hemoglobin 13.6 g/dL (12.2-16.2); Mean Corpuscular Hemoglobin 29.3 pg (28.0-32.0); Mean Corpuscular Volume 90.6 fL (80.0-100.0); Nucleated Red Blood Cells % 0.0 %
[2024-12-12 20:33] LABS: Albumin 4.4 g/dL (3.2-4.8); Anion Gap 10 (5-15); BUN/Creatinine Ratio 21.5 (10.0-20.0); Bilirubin, Total 0.6 mg/dL (0.2-1.0); Blood Urea Nitrogen 20 mg/dL (9-23); Calcium 9.4 mg/dL (8.7-10.4); Carbon Dioxide 25 mmol/L (20-31); Chloride 100 mmol/L (98-107); Lipase 48 U/L (12-53); Potassium 4.4 mmol/L (3.5-5.1); Total Protein 8.0 g/dL (5.7-8.2)
[2024-12-12 20:55] LABS: Alanine Aminotransferase 169 U/L (7-40); Alkaline Phosphatase 296 U/L (46-116); Glucose 309 mg/dL (74-106); Sodium 135 mmol/L (136-145)
--- NOTE | 2024-12-12 21:54 | DVH ---
Exam: CT CT AB PEL WITH IV CON ONLY History: Gastric abdominal pain, nausea, vomiting Comparison Study: CT CT AB PEL WO CON-NO ORAL OR IV on DOS: 11/11/24, CT CT AB PEL WO CON-NO ORAL OR I V on DOS: 08/30/22 TECHNIQUE: A digital tip mender image was obtained. During the uneventful, intravenous administration of c ontrast material, multislice data acquisition was obtained through the abdomen and pelvis. The data s et was subsequently reconstructed into multiplanar reformats. RADIATION DOSE: CTDI vol 27.82 mGy. DLP 1283.27 mGy.cm Findings: Lungs: Minimal atelectasis/scarring. Liver: Hepatomegaly. Spleen: Unremarkable. Pancreas: Interval improvement in peripancreatic stranding. Gallbladder: There is suggestion of mild gallbladder wall thickening. Adrenals: Unremarkable Kidneys: Too small to characterize renal cysts. No hydronephrosis. Pelvic Viscera: Unremarkable. Vasculature: Unremarkable. Retroperitoneum: Unremarkable. Bowel: Colonic diverticulosis without CT evidence of diverticulitis. No bowel obstruction. Musculoskeletal: Unremarkable. Soft tissues: Unremarkable Impression: 1. Mild gallbladder wall thickening, right upper quadrant ultrasound may be beneficial in further ass essment. 2. Incidental findings as detailed.
[2024-12-13] MEDS: ONDANSETRON HCL 4 MG/2 ML VIAL ONE (03:09)
[2024-12-13] MEDS: KETOROLAC TROMETH 30 MG/ML 1ML VIAL IV ONE (03:09)
[2024-12-13] MEDS: PIPERACILLIN-TAZOB 3.375GM 100 ML IV ONE ×2 (03:09→03:18)
[2024-12-13] MEDS: ONDANSETRON HCL 4 MG/2 ML VIAL IV ONE (03:09)
[2024-12-13] MEDS: KETOROLAC TROMETH 30 MG/ML 1ML VIAL ONE ×2 (03:18→10:31)
[2024-12-13] MEDS ORDERED: DEXTROSE (50%) 50ML SYRG IV PRN (04:30)
[2024-12-13] MEDS ORDERED: ONDANSETRON HCL 4 MG/2 ML VIAL IV PRN (04:30)
--- NOTE | 2024-12-13 04:41 | DVHHP2 ---
History of Present Illness Reason for Visit: Abdominal pain History of Present Illness 59-year-old female presents for evaluation of abdominal pain. Patient endorses a two day history of intermittent epigastric abdominal pain. Currently she denies any discomfort. She states being evaluated a month ago for similar symptoms. Reports nausea without emesis. No diarrhea. No fever or chills. Past Medical History Hypertension, dyslipidemia, diabetes mellitus Past Surgical History Appendectomy Family History Noncontributory Smoke: No ALCOHOL: none Drugs: None Lives: with Family Review of Systems Review of Systems Review of systems are currently negative otherwise addressed in HPI. Allergies: Coded Allergies: Morphine (Verified Allergy, Severe, 02/12/24) Medications Current Medications Medications Dose Ordered Sig/Christi Route Start Time Stop Time Status Last Admin Dose Admin Ceftriaxone Sodium 50 ml @ 100 mls/hr DAILY@09 IV 12/13/24 09:00 Empaglifozin 10 mg DAILY PO 12/13/24 10:00 Amlodipine Besylate 5 mg DAILY PO 12/13/24 10:00 Lisinopril 40 mg DAILY PO 12/13/24 10:00 Ketorolac Tromethamine 15 mg Q6HPRN PRN IV 12/13/24 04:30 12/18/24 04:29 Diagnostic Test (Pha) 1 strip Q6HR 12/13/24 06:00 Insulin Human Regular Q6HR SC 12/13/24 06:00 Dextrose 50 ml UD PRN IV 12/13/24 04:30 Acetaminophen/ Hydrocodone Bitart 1 tab Q4HP PRN PO 12/13/24 04:30 Ondansetron HCl 4 mg Q4HP PRN IV 12/13/24 04:30 Acetaminophen 650 mg Q6HP PRN PO 12/13/24 04:30 Exam Vital Signs Vital Signs Date Time Temp Pulse Resp B/P (MAP) Pulse Ox O2 Delivery O2 Flow Rate FiO2 12/13/24 02:40 98.8 70 18 152/83 (106) 96 98.8 12/12/24 21:14 Room Air Exam Gen: 59-year-old female in mild distress, morbidly obese Skin: Warm, dry, normal color and texture, no rash. HEENT: Normocephalic atraumatic, mucous membranes moist and pink. Neck: Cervical and supraclavicular nodes normal without enlargement, trachea is midline, thyroid gland is normal without masses. Pulmonary: Clear to auscultation and percussion bilaterally. Cardiac: Regular rate and rhythm. No murmur Abdomen: Soft, epigastric tenderness, nondistended, bowel sounds present all 4 quadrants, no guarding, no rigidity, no organomegaly. Extremities: No cyanosis, clubbing, no edema Neuro: Cranial nerves II through XII grossly intact, normal affect and speech, no focal motor deficits. Labs/Xrays ORDERING PHYSICIAN: TAMERA FRASER MD PROCEDURE(s): ABPLIV - CT AB PEL WITH IV CON ONLY REASON: Gastric abdominal pain, nausea, vomiting ORDER NUMBER(s): [id number], ACCESSION NUMBER(s): [id number] Exam: CT CT AB PEL WITH IV CON ONLY History: Gastric abdominal pain, nausea, vomiting Comparison Study: CT CT AB PEL WO CON-NO ORAL OR IV on DOS: 11/11/24, CT CT AB PEL WO CON-NO ORAL OR IV on DOS: 08/30/22 TECHNIQUE: A digital iron launder operator image was obtained. During the uneventful, intravenous administration of contrast material, multislice data acquisition was obtained through the abdomen and pelvis. The data set was subsequently reconstructed into multiplanar reformats. RADIATION DOSE: CTDI vol 27.82 mGy. DLP 1283.27 mGy.cm Findings: Lungs: Minimal atelectasis/scarring. Liver: Hepatomegaly. Spleen: Unremarkable. Pancreas: Interval improvement in peripancreatic stranding. Gallbladder: There is suggestion of mild gallbladder wall thickening. Adrenals: Unremarkable Kidneys: Too small to characterize renal cysts. No hydronephrosis. Pelvic Viscera: Unremarkable. Vasculature: Unremarkable. Retroperitoneum: Unremarkable. Bowel: Colonic diverticulosis without CT evidence of diverticulitis. No bowel obstruction. Musculoskeletal: Unremarkable. Soft tissues: Unremarkable Impression: 1. Mild gallbladder wall thickening, right upper quadrant ultrasound may be beneficial in further assessment. 2. Incidental findings as detailed. Labs Test 12/12/24 19:50 Range/Units White Blood Count 11.7 H 4.4-10.8 10^3/uL Red Blood Count 4.65 4.0-5.20 10^6/uL Hemoglobin 13.6 12.2-16.2 g/dL Hematocrit 42.1 36.0-46.0 % Mean Corpuscular Volume 90.6 80.0-100.0 fL Mean Corpuscular Hemoglobin 29.3 28.0-32.0 pg Mean Corpuscular Hemoglobin Concent 32.4 32.0-36.0 g/dL Red Cell Distribution Width 15.1 H 11.8-14.3 % Platelet Count 245 140-450 10^3/uL Mean Platelet Volume 11.3 H 6.9-10.8 fL Neutrophils (%) (Auto) 78.2 37.0-80.0 % Lymphocytes (%) (Auto) 15.5 10.0-50.0 % Monocytes (%) (Auto) 4.6 0.0-12.0 % Eosinophils (%) (Auto) 1.1 0.0-7.0 % Basophils (%) (Auto) 0.6 0.0-2.0 % Neutrophils # (Auto) 9.2 H 1.6-8.6 10 ^3/uL Lymphocytes # (Auto) 1.8 0.4-5.4 10 ^3/uL Monocytes # (Auto) 0.5 0-1.3 10 ^3/uL Eosinophils # (Auto) 0.1 0-0.8 10 ^3/uL Basophils # (Auto) 0.1 0-0.2 10 ^3/uL Nucleated Red Blood Cells 0.0 % Sodium Level 135 L 136-145 mmol/L Potassium Level 4.4 3.5-5.1 mmol/L Chloride Level 100 98-107 mmol/L Carbon Dioxide Level 25 20-31 mmol/L Anion Gap 10 5-15 Blood Urea Nitrogen 20 9-23 mg/dL Creatinine 0.93 0.550-1.02 mg/dL Glomerular Filtration Rate Calc 70 >90 mL/min BUN/Creatinine Ratio 21.5 H 10.0-20.0 Serum Glucose 309 H 74-106 mg/dL Calcium Level 9.4 8.7-10.4 mg/dL Total Bilirubin 0.6 0.2-1.0 mg/dL Aspartate Amino Transferase (AST) 36 13-40 U/L Alanine Aminotransferase (ALT) 169 H 7-40 U/L Alkaline Phosphatase 296 H 46-116 U/L Total Protein 8.0 5.7-8.2 g/dL Albumin 4.4 3.2-4.8 g/dL Lipase 48 12-53 U/L SEPSIS Sepsis Screen Date sepsis recognized/suspect: Dec 12, 2024 Time Sepsis recognized/suspect: 1804 Recent Procedure: No On Antibiotic Therapy: No Respiratory Rate >20: No Heart Rate >90: No Temp<36 C (96.8 F) or >38.3 C: No SBP <90 or MAP <65 mmHG: No New Acute Mental Status Change: No Is the patient on CPAP, BIPAP,: No Physician Orders Ceftriaxone 1gm/50ml (Rocephin) (12/13/24 09:00) Gallbladder (12/13/24 04:16) Empagliflozin (Jardiance) (12/13/24 10:00) Amlodipine Tablet (Norvasc Tablet) (12/13/24 10:00) Lisinopril Tablet (Zestril Tablet) (12/13/24 10:00) Ketorolac Injection (Toradol Injection) (12/13/24 04:30) Glucose Blood (Accu-Chek Comfort Curve T (12/13/24 06:00) Insulin R (Human) (Insulin R) (12/13/24 06:00) Dextrose 50% Syringe (12/13/24 04:30) Admit (12/13/24 04:16) Hydrocodone-Acet 5/325mg Tab (Finley 5/32 (12/13/24 04:30) Ondansetron Hcl (Zofran) (12/13/24 04:30) Complete Blood Count (12/14/24 04:00) Comprehensive Metabolic Panel (12/14/24 04:00) Condition: Stable (12/13/24 04:16) Acetaminophen Tablet (Tylenol Tablet) (12/13/24 04:30) Clear Liq Diet (12/13/24 Breakfast) Bedrest With Bathroom Privileg (12/13/24 04:16) Vital Signs Date Time Temp Pulse Resp B/P (MAP) Pulse Ox O2 Delivery O2 Flow Rate FiO2 12/13/24 02:40 98.8 70 18 152/83 (106) 96 98.8 12/12/24 21:14 98.4 63 18 156/81 (106) 95 98.4 12/12/24 21:14 63 95 Room Air Laboratory Tests Test 12/12/24 19:50 White Blood Count 11.7 10^3/uL (4.4-10.8) H Medications Medications Dose Ordered Sig/Christi Route Start Time Stop Time Status Last Admin Dose Admin Ketorolac Tromethamine 15 mg ONCE ONCE IV 12/12/24 19:45 12/12/24 19:46 DC 12/13/24 03:09 15 MG Ondansetron HCl 4 mg ONCE ONCE IV 12/12/24 19:45 12/12/24 19:46 DC 12/13/24 03:09 4 MG Piperacillin Sod/ Tazobactam Sod 100 ml @ 100 mls/hr ONCE ONCE IV 12/12/24 22:15 12/12/24 23:14 DC 12/13/24 03:09 100 MLS/HR Assessment/Plan Assessment/Plan Assessment Acute abdominal pain Uncontrolled diabetes mellitus Transaminitis Hypertension Morbid obesity Plan Admit the patient to [facility] to the hospitalist Teresa Gallbladder ultrasound pending Pain management Resume home medications Continue treatment per orders. Plan discussed with: Patient My Orders Orders - RICARDO BARRIENTOS Procedure Category Date Status Time Ceftriaxone 1gm/50ml PHA 12/13/24 In Process (Rocephin) 09:00 Gallbladder US 12/13/24 Logged 04:16 Empagliflozin PHA 12/13/24 In Process (Jardiance) 10:00 Amlodipine Tablet PHA 12/13/24 In Process (Norvasc Tablet) 10:00 Lisinopril Tablet PHA 12/13/24 In Process (Zestril Tablet) 10:00 Ketorolac Injection PHA 12/13/24 In Process (Toradol Injection) 04:30 Glucose Blood PHA 12/13/24 In Process (Accu-Chek Comfort 06:00 Insulin R (Human) PHA 12/13/24 In Process (Insulin R) 06:00 Dextrose 50% Syringe PHA 12/13/24 In Process 04:30 Admit ADMIT 12/13/24 Transmitted 04:16 Hydrocodone-Acet PHA 12/13/24 In Process 5/325mg Tab (Finley 04:30 Ondansetron Hcl PHA 12/13/24 In Process (Zofran) 04:30 Complete Blood Count LAB 12/14/24 Verified 04:00 Comprehensive LAB 12/14/24 Verified Metabolic Panel 04:00 Condition: Stable KING 12/13/24 In Process 04:16 Acetaminophen Tablet PHA 12/13/24 In Process (Tylenol Tablet) 04:30 Clear Liq Diet DIET 12/13/24 Transmitted Breakfast Bedrest With Bathroom KING 12/13/24 In Process Privileg 04:16 Date of Service: Dec 13, 2024 Billing Provider: RICARDO BARRIENTOS Common Visit Codes: [id number] INP/OBS CARE (MOD) RICARDO BARRIENTOS Dec 13, 2024 04:41
[2024-12-13] MEDS: ACCU-CHEK COMFORT CURVE STRIP VI SCH (06:24)
[2024-12-13] MEDS: InsuLIN REG 1unit/0.01ml Soln (100units/ml) SC SCH (06:28)
[2024-12-13] MEDS: InsuLIN REG 1unit/0.01ml Soln (100units/ml) ONE (06:41)
--- NOTE | 2024-12-13 08:08 | DVH ---
INDICATION: Rule out cholecystitis; abdominal pain TECHNIQUE: Multiple real-time sonographic images were obtained of the right upper quadrant. COMPARISON: MRI MRCP MRI on DOS: 11/12/24, US ABDOMEN LIMITED on DOS: 11/11/24 FINDINGS: The liver demonstrates increased echotexture without focal mass lesions. The liver measures 18 cm. There is no intrahepatic or extrahepatic ductal dilatation. The common duct measures 4 mm. Gallstones. Nonspecific gallbladder wall thickening measuring 6 mm. Sonographic Patel's sign is repo rtedly negative. The right kidney measures 9 cm. The right kidney is normal in contour, size, and shape. The echogeni city is normal. There is no hydronephrosis. The pancreas is not well visualized due to overlying bowel gas. IMPRESSION: Gallstones with nonspecific gallbladder wall thickening. Findings can be seen in the setting of acute cholecystitis. 2. Hepatic steatosis and mild hepatomegaly.
[2024-12-13 10:03] VITALS: PULSE 57; RESP 18; O2SAT 97
[2024-12-13] MEDS: KETOROLAC TROMETH 30 MG/ML 1ML VIAL IV PRN (10:17)
[2024-12-13] MEDS ORDERED: ASPI-325 PO (10:34)
[2024-12-13] MEDS ORDERED: LISI40TA16 PO (10:34)
[2024-12-13] MEDS ORDERED: AMLO1TAB22 PO (10:34)
[2024-12-13] MEDS ORDERED: EMPA1TAB PO (10:34)
[2024-12-13] MEDS ORDERED: LORA-483 PO (10:34)
[2024-12-13] MEDS ORDERED: FENO160T PO (10:34)
[2024-12-13] MEDS ORDERED: GLIP10TA21 PO (10:34)
[2024-12-13 13:00] VITALS: BP 144/62; PULSE 64; RESP 18; TEMP 97.6; O2SAT 98
--- NOTE | 2024-12-13 16:49 | DVHPN2 ---
Subjective I am assuming the care of the patient from today onwards. Patient is here for epigastric pain found to have symptomatic cholelithiasis. 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 Medications Current Medications Medications Dose Ordered Sig/Christi Route Start Time Stop Time Status Last Admin Dose Admin Ceftriaxone Sodium 50 ml @ 100 mls/hr DAILY@09 IV 12/13/24 09:00 12/13/24 10:09 100 MLS/HR Empaglifozin 10 mg DAILY PO 12/13/24 10:00 Amlodipine Besylate 5 mg DAILY PO 12/13/24 10:00 Lisinopril 40 mg DAILY PO 12/13/24 10:00 Ketorolac Tromethamine 15 mg Q6HPRN PRN IV 12/13/24 04:30 12/18/24 04:29 12/13/24 10:17 15 MG Diagnostic Test (Pha) 1 strip Q6HR 12/13/24 06:00 12/13/24 12:00 1 STRIP Insulin Human Regular Q6HR SC 12/13/24 06:00 12/13/24 06:28 6 UNITS Dextrose 50 ml UD PRN IV 12/13/24 04:30 Acetaminophen/ Hydrocodone Bitart 1 tab Q4HP PRN PO 12/13/24 04:30 Ondansetron HCl 4 mg Q4HP PRN IV 12/13/24 04:30 Acetaminophen 650 mg Q6HP PRN PO 12/13/24 04:30 Laboratory Results Laboratory Tests 12/12/24 19:50 Chemistry Test 12/12/24 19:50 Albumin 4.4 g/dL (3.2-4.8) Calcium Level 9.4 mg/dL (8.7-10.4) Total Protein 8.0 g/dL (5.7-8.2) Lipid panel Test 12/12/24 19:50 Lipase 48 U/L (12-53) LFT Test 12/12/24 19:50 Alanine Aminotransferase (ALT) 169 U/L (7-40) H Alkaline Phosphatase 296 U/L (46-116) H Aspartate Amino Transferase (AST) 36 U/L (13-40) Total Bilirubin 0.6 mg/dL (0.2-1.0) Assessment/Plan Assessment/Plan 59-year-old female with a known history of diabetes mellitus type 2, hypertension, dyslipidemia, morbid obesity classIII 59 presented to the hospital with a epigastric pain and right upper quadrant pain associated with the nausea and vomiting found to have 1. Acute cholecystitis 2. Leukocytosis likely reactive 3. Diabetes mellitus type 2 4. Hypertension 5. Dyslipidemia 6. Morbid obesity classIII -clear liquid diet as tolerated, NPO after midnight for possible surgical intervention tomorrow -empirical IV antibiotics. Plan discussed with: Patient My Orders Orders - ALLEY HAHN MD Procedure Category Date Status Time * Surgical Consult CONS 12/13/24 Transmitted Date of Service: Dec 13, 2024 Billing Provider: ALLEY HAHN MD Common Visit Codes: [id number] INP/OBS CARE(MOD) ALLEY HAHN MD Dec 13, 2024 16:49
[2024-12-13 18:47] VITALS: BP 149/50; PULSE 70; TEMP 98.2; O2SAT 98
[2024-12-13 19:14] VITALS: BP 141/80; PULSE 70; RESP 18; TEMP 101.2; O2SAT 98
[2024-12-13 21:00] VITALS: BP 141/80; PULSE 97; RESP 18; TEMP 101.2; O2SAT 98
[2024-12-13] MEDS: ACETAMINOPHEN 325 MG TAB PO PRN (21:00)
[2024-12-13 22:22] VITALS: BP 135/67; PULSE 94; RESP 18; TEMP 98.6; O2SAT 97
[2024-12-14] VITALS (8 sets, daily range): BP systolic 94–148; BP diastolic 45–66; PULSE 92–100; RESP 17–19; TEMP 98–99.9; O2SAT 93–99
[2024-12-14 08:32] LABS: Hematocrit 37.3 % (36.0-46.0); Hemoglobin 12.2 g/dL (12.2-16.2); Mean Corpuscular Hemoglobin 29.7 pg (28.0-32.0); Mean Corpuscular Volume 90.7 fL (80.0-100.0); Nucleated Red Blood Cells % 0.0 %
[2024-12-14 08:42] LABS: Albumin 3.8 g/dL (3.2-4.8); Anion Gap 11 (5-15); BUN/Creatinine Ratio 15.5 (10.0-20.0); Blood Urea Nitrogen 16 mg/dL (9-23); Calcium 8.9 mg/dL (8.7-10.4); Carbon Dioxide 24 mmol/L (20-31); Chloride 101 mmol/L (98-107); Potassium 4.4 mmol/L (3.5-5.1); Total Protein 6.6 g/dL (5.7-8.2)
[2024-12-14 08:43] LABS: Alanine Aminotransferase 421 U/L (7-40); Alkaline Phosphatase 546 U/L (46-116); Bilirubin, Total 2.8 mg/dL (0.2-1.0); Glucose 212 mg/dL (74-106); Sodium 136 mmol/L (136-145)
[2024-12-14] MEDS: LISINOPRIL 20 MG TAB PO SCH (10:00)
[2024-12-14] MEDS: EMPAGLIFLOZIN 10 MG TAB PO SCH (10:00)
[2024-12-14] MEDS: LACTATED RINGER'S 1,000 ML IV SCH (10:15)
[2024-12-14 11:39] LABS: INR 1.11 (0.9-1.15); Partial Thromboplastin Time 29.3 SEC (24.5-34.5); Prothrombin Time 11.6 sec (9.3-11.8)
--- NOTE | 2024-12-14 15:47 | DVH ---
Procedure: NM NM HIDA SCAN Exam Date: 12/14/2024 11:39 AM Clinical History: R/O CHOLECYSTITIS Comparison Study: CT abdomen from 12/12/2024 Nuclear Medicine Hepatobiliary Scan. Technique: Following the intravenous administration of 4. mCi of technetium 99m labeled Choletec multiple planar abdominal planar images were obtained in anterior projection in 2 minute intervals for 60 minutes . Right lateral images were obtained at 3.5 hours after injection. Findings: There is rapid uptake within the liver. There is persistent tracer within the liver up to 16 minutes. Gallbladder nonvisualized S16 anise. On the 3.5 hour images, there is still persistent tracer withi n the liver. There is a small amount of radiotracer within the bowel. Impression: Persistent tracer within the liver which could be secondary to biliary obstruction, hepatic dysfuncti on. Nonvisualization of the gallbladder at 3.5 hours which can be secondary to cystic duct obstruction
--- NOTE | 2024-12-14 16:40 | DVHPN2 ---
Subjective Patient's surgery is planned for tomorrow. Patient denies any complaints. 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 Medications Current Medications Medications Dose Ordered Sig/Christi Route Start Time Stop Time Status Last Admin Dose Admin Ceftriaxone Sodium 50 ml @ 100 mls/hr DAILY@09 IV 12/13/24 09:00 12/14/24 09:37 100 MLS/HR Empaglifozin 10 mg DAILY PO 12/13/24 10:00 12/14/24 11:45 10 MG Amlodipine Besylate 5 mg DAILY PO 12/13/24 10:00 12/14/24 11:45 5 MG Lisinopril 40 mg DAILY PO 12/13/24 10:00 12/14/24 11:45 40 MG Ketorolac Tromethamine 15 mg Q6HPRN PRN IV 12/13/24 04:30 12/18/24 04:29 12/13/24 10:17 15 MG Diagnostic Test (Pha) 1 strip Q6HR 12/13/24 06:00 12/14/24 12:00 1 STRIP Insulin Human Regular Q6HR SC 12/13/24 06:00 12/14/24 13:50 4 UNITS Dextrose 50 ml UD PRN IV 12/13/24 04:30 Acetaminophen/ Hydrocodone Bitart 1 tab Q4HP PRN PO 12/13/24 04:30 Ondansetron HCl 4 mg Q4HP PRN IV 12/13/24 04:30 Acetaminophen 650 mg Q6HP PRN PO 12/13/24 04:30 12/14/24 05:20 650 MG Lactated Ringer's 1,000 ml @ 75 mls/hr [id number] IV 12/14/24 10:15 Laboratory Results Laboratory Tests 12/14/24 07:10 Chemistry Test 12/14/24 07:10 Albumin 3.8 g/dL (3.2-4.8) Calcium Level 8.9 mg/dL (8.7-10.4) Total Protein 6.6 g/dL (5.7-8.2) Coagulation Test 12/14/24 10:40 Prothrombin Time 11.6 sec (9.3-11.8) Prothrombin Time INR 1.11 (0.9-1.15) Activated Partial Thromboplast Time 29.3 SEC (24.5-34.5) LFT Test 12/14/24 07:10 Alanine Aminotransferase (ALT) 421 U/L (7-40) H Alkaline Phosphatase 546 U/L (46-116) H Aspartate Amino Transferase (AST) 247 U/L (13-40) H Total Bilirubin 2.8 mg/dL (0.2-1.0) H Assessment/Plan Assessment/Plan 59-year-old female with a known history of diabetes mellitus type 2, hypertension, dyslipidemia, morbid obesity classIII 59 presented to the hospital with a epigastric pain and right upper quadrant pain associated with the nausea and vomiting found to have 1. Acute cholecystitis 2. Leukocytosis likely reactive 3. Diabetes mellitus type 2 4. Hypertension 5. Dyslipidemia 6. Morbid obesity classIII -clear liquid diet as tolerated, NPO after midnight for possible surgical intervention tomorrow -empirical IV antibiotics. Plan discussed with: Patient My Orders Orders - ALLEY HAHN MD Procedure Category Date Status Time Bipap/Cpap For Sleep RT 12/13/24 Logged Apnea 18:40 Date of Service: Dec 14, 2024 Billing Provider: ALLEY HAHN MD Common Visit Codes: [id number] INP/OBS CARE(MOD) ALLEY HAHN MD Dec 14, 2024 16:40
[2024-12-15] VITALS (7 sets, daily range): BP systolic 100–125; BP diastolic 58–71; PULSE 61–93; RESP 17–20; TEMP 97.8–98.2; O2SAT 92–98
--- NOTE | 2024-12-15 08:42 | DVH ---
CLINICAL INFORMATION: Rule out choledocholithiasis. Abnormal findings on nuclear medicine HIDA scan. TECHNIQUE: Multisequence multiplanar MRI images of the abdomen were obtained without IV contrast. Hea vily T2-weighted MRCP images were obtained. 3D MRCP images were created. COMPARISON: US GALLBLADDER on DOS: 12/13/24, CT CT AB PEL WITH IV CON ONLY on DOS: 12/12/24, MRI MRCP M RI on DOS: 11/12/24 FINDINGS: There are gallstones and sludge in the gallbladder. There are small gallstones in the cysti c duct. No biliary ductal dilatation. Common bile duct measures up to 5 mm in diameter, within normal limits. No filling defect or stricture identified in the common bile duct to suggest choledocholithi asis. The liver, spleen, and pancreas are unremarkable on limited noncontrast enhanced images obtaine d. There are multiple small T2 hyperintense foci in both kidneys, likely small cysts, but not well ev aluated on noncontrast enhanced exam. Left adrenal nodule measures up to 1.2 cm. IMPRESSION: 1. Cholelithiasis. There are small gallstones in the cystic duct. 2. No biliary ductal dilatation. No filling defect or stricture identified in the common bile duct. No evidence of choledocholithiasis on this exam. 3. Left adrenal nodule, not well characterized on this exam, most likely adenoma. Nonemergent adrenal mass protocol MRI could be considered to further characterize. 4. Small T2 hyperintense foci in both kidneys, likely cysts, but not well characterized on this exami nation.
--- NOTE | 2024-12-15 11:35 | DVHPN2 ---
Subjective The patient is seen and examined at bedside. Still complain of abdominal pain. Reviewed: Care Plan, H&P, Labs, Medications, Previous Orders, Radiology Changes from previous H/P or p: No Changes Objective Vitals Vital Signs Date Time Temp Pulse Resp B/P (MAP) Pulse Ox O2 Delivery O2 Flow Rate FiO2 12/15/24 09:23 106/55 12/15/24 09:00 97.8 73 20 96 97.8 12/15/24 08:00 Room Air* 0 21 Intake/Output Intake and Output 12/15/24 07:00 Intake Total 434 ml Balance 434 ml Intake Oral 434 ml # Voids 2 General Appearance: Alert, Oriented X3, Cooperative, No acute distress HEENT: Atraumatic, PERRLA, EOMI Neck: Supple Lungs: Clear to auscultation, Normal air movement Cardiovascular: Regular rate, Normal S1, Normal S2, No murmurs, Gallops, Rubs Abdomen: Normal bowel sounds, Soft, No tenderness Neuro: Cranial nerves 3-12 NL Psych/Mental Status: Mental status NL Medications Current Medications Medications Dose Ordered Sig/Christi Route Start Time Stop Time Status Last Admin Dose Admin Ceftriaxone Sodium 50 ml @ 100 mls/hr DAILY@09 IV 12/13/24 09:00 12/15/24 09:23 100 MLS/HR Empaglifozin 10 mg DAILY PO 12/13/24 10:00 12/15/24 09:23 10 MG Amlodipine Besylate 5 mg DAILY PO 12/13/24 10:00 12/14/24 11:45 5 MG Lisinopril 40 mg DAILY PO 12/13/24 10:00 12/14/24 11:45 40 MG Ketorolac Tromethamine 15 mg Q6HPRN PRN IV 12/13/24 04:30 12/18/24 04:29 12/13/24 10:17 15 MG Diagnostic Test (Pha) 1 strip Q6HR 12/13/24 06:00 12/15/24 06:00 1 STRIP Insulin Human Regular Q6HR SC 12/13/24 06:00 12/14/24 18:04 3 UNITS Dextrose 50 ml UD PRN IV 12/13/24 04:30 Acetaminophen/ Hydrocodone Bitart 1 tab Q4HP PRN PO 12/13/24 04:30 Ondansetron HCl 4 mg Q4HP PRN IV 12/13/24 04:30 Acetaminophen 650 mg Q6HP PRN PO 12/13/24 04:30 12/14/24 05:20 650 MG Lactated Ringer's 1,000 ml @ 75 mls/hr [id number] IV 12/14/24 10:15 12/14/24 23:35 75 MLS/HR Laboratory Results Laboratory Tests 12/14/24 07:10 Labs and/or images reviewed: Labs reviewed by me Assessment/Plan Assessment/Plan 1. Acute cholecystitis 2. Leukocytosis likely reactive 3. Diabetes mellitus type 2 4. Hypertension 5. Dyslipidemia 6. Morbid obesity classIII Continuing current management. Continuing to keep NPO. IV fluid. Continuing with Accu-Chek q.a.c. and HS and to give insulin if is less than 60. The patient is supposed to have a cholecystectomy done in the morning. This medical document was created using an electronic medical record system with [employer] direct computerized dictation system. Although this document has been carefully reviewed, there may still be some phonetic and typographical errors. These areas are purely typographical due to imperfections of the software programs, and do not reflect any compromise in the patient's medical care. Plan discussed with: Patient Date of Service: Dec 15, 2024 Billing Provider: RYANNE MCCLURE MD Common Visit Codes: [id number] INP/OBS CARE(HIGH) RYANNE MCCLURE MD Dec 15, 2024 11:35
--- NOTE | 2024-12-15 12:04 | DVHPN2 ---
Progress Note Date Seen: Dec 15, 2024 Medical Necessity Reason Pt with a Central, PICC or Fol: No Objective vital signs Vital Sign Date Time Temp Pulse Resp B/P (MAP) Pulse Ox O2 Delivery O2 Flow Rate FiO2 12/15/24 09:23 106/55 12/15/24 09:00 97.8 73 20 96 97.8 12/15/24 08:00 Room Air* 0 21 Total Intake and Output 12/14/24 12/14/24 12/15/24 15:00 23:00 07:00 Intake Total 334 ml 100 ml Balance 334 ml 100 ml medications Current Medications Medications Dose Ordered Sig/Christi Route Start Time Stop Time Status Last Admin Dose Admin Ceftriaxone Sodium 50 ml @ 100 mls/hr DAILY@09 IV 12/13/24 09:00 12/15/24 09:23 100 MLS/HR Empaglifozin 10 mg DAILY PO 12/13/24 10:00 12/15/24 09:23 10 MG Amlodipine Besylate 5 mg DAILY PO 12/13/24 10:00 12/14/24 11:45 5 MG Lisinopril 40 mg DAILY PO 12/13/24 10:00 12/14/24 11:45 40 MG Ketorolac Tromethamine 15 mg Q6HPRN PRN IV 12/13/24 04:30 12/18/24 04:29 12/13/24 10:17 15 MG Diagnostic Test (Pha) 1 strip Q6HR 12/13/24 06:00 12/15/24 06:00 1 STRIP Insulin Human Regular Q6HR SC 12/13/24 06:00 12/14/24 18:04 3 UNITS Dextrose 50 ml UD PRN IV 12/13/24 04:30 Acetaminophen/ Hydrocodone Bitart 1 tab Q4HP PRN PO 12/13/24 04:30 Ondansetron HCl 4 mg Q4HP PRN IV 12/13/24 04:30 Acetaminophen 650 mg Q6HP PRN PO 12/13/24 04:30 12/14/24 05:20 650 MG Lactated Ringer's 1,000 ml @ 75 mls/hr [id number] IV 12/14/24 10:15 12/14/24 23:35 75 MLS/HR laboratory and microbiology Laboratory Tests 12/14/24 07:10 Test 12/14/24 07:10 Range/Units Serum Glucose 212 H 74-106 mg/dL Problem List/Assessment/Plan Problem List/Assessment/Plan 12/15/24 LFT'S ELEVATED, MORE PAIN , ABDOMEN NON TENDER, HIDA SCAN INDICATES CHOLECYSTITIS WITH SUSPICION OF BILIARY OBSTRUCTION, MRCP SHOWS NO EVIDENCE OF CHOLEDOCHOLITHIASIS. LAPAROSCOPIC POSSIBLY OPEN CHOLECYSTECTOMY,RISKS AND COMPLICATIONS EXPLAINED IN DETAIL TO PATIENT IN [place]. WILL KEEP NPO TILL OPERATION IN AM Plan discussed with: Patient, Other RADHA GENAO MD Dec 15, 2024 12:04
[2024-12-15] MEDS: HYDROcodone-ACET 5/325MG TAB PO PRN (16:32)
[2024-12-16] VITALS (7 sets, daily range): BP systolic 113–140; BP diastolic 65–86; PULSE 64–86; RESP 14–18; TEMP 97–98.3; O2SAT 91–100
[2024-12-16 05:38] LABS: Hematocrit 35.1 % (36.0-46.0); Hemoglobin 11.5 g/dL (12.2-16.2); Mean Corpuscular Hemoglobin 29.6 pg (28.0-32.0); Mean Corpuscular Volume 90.7 fL (80.0-100.0); Nucleated Red Blood Cells % 0.1 %
[2024-12-16 05:43] LABS: Chloride 104 mmol/L (98-107); Potassium 3.6 mmol/L (3.5-5.1); Sodium 140 mmol/L (136-145)
[2024-12-16 05:44] LABS: Anion Gap 12 (5-15); Calcium 8.8 mg/dL (8.7-10.4); Carbon Dioxide 24 mmol/L (20-31)
[2024-12-16 05:49] LABS: BUN/Creatinine Ratio 21.1 (10.0-20.0); Blood Urea Nitrogen 16 mg/dL (9-23); Glucose 80 mg/dL (74-106)
[2024-12-16 05:56] LABS: Urine Budding Yeast OCCASIONAL /hpf (None Seen); Urine Protein, UAD Negative (Negative)
--- NOTE | 2024-12-16 06:47 | DVH ---
CHEST RADIOGRAPH Indication: PRE-OP EVAL Technique: Single frontal view of the chest was obtained COMPARISON: XY CHEST PORTABLE on DOS: 02/12/24, CHEST TWO VIEWS ROUTINE on DOS: 12/12/21, CXR2 on DOS: 12/12/21 FINDINGS: Lines and Tubes: None Lungs: Mildly diminished lung volumes with concomitant crowding of the pulmonary vasculature. No evid ence of focal consolidation. Pleura: No effusion. No pneumothorax. Cardiomediastinal contours: Unremarkable Bones: Unremarkable IMPRESSION: 1. No evidence of acute cardiopulmonary disease.
[2024-12-16] MEDS ORDERED: HYDROmorphone HCL 2 MG/ML VL/or syr ONE (07:28)
[2024-12-16] MEDS ORDERED: fentaNYL CITRATE 100 MCG/2 ML VL ONE (07:28)
[2024-12-16] MEDS ORDERED: MIDAZOLAM HCL 2MG/2ML 2ml VIAL (1mg/ml) ONE (07:28)
[2024-12-16] MEDS ORDERED: KETAMINE 50mg/ML 1ml syringe ONE (07:28)
[2024-12-16] MEDS ORDERED: ONDANSETRON HCL 4 MG/2 ML VIAL ONE (07:29)
[2024-12-16] MEDS ORDERED: ROCURONIUM 10MG/ML 10ML VIAL IV ONE (07:29)
[2024-12-16] MEDS ORDERED: GLYCOPYRROLATE 0.2 MG/ML 1ML VIAL ONE (07:29)
[2024-12-16] MEDS ORDERED: LIDOCAINE 2% (LOCAL ANESTH.) PF 5ml SDV ONE (07:29)
[2024-12-16] MEDS: ceFAZolin 2 GM/D5W50ml 50 ML IV ONE (07:33)
[2024-12-16] MEDS ORDERED: SUGAMMADEX 200mg/2ml Vial (100MG/ML) IV ONE (08:15)
[2024-12-16] MEDS ORDERED: ONDANSETRON HCL 4 MG/2 ML VIAL IV PRN (09:00)
[2024-12-16] MEDS ORDERED: HYDROmorphone HCL 2 MG/ML VL/or syr IV PRN (09:00)
[2024-12-16] MEDS ORDERED: ACETAMINOPHEN IV 1000 MG/100ML (10MG/ML) IV ONE (09:00)
[2024-12-16] MEDS: LIDOCAINE W/ EPINEPHRINE 1% 20ML VIAL ONE (09:06)
[2024-12-16] MEDS: BUPIVACAINE 0.5% P/F INJ 10 ML VIAL ONE (09:06)
--- NOTE | 2024-12-16 09:17 | DVHOP ---
DATE OF SURGERY: 12/16/2024 PREOPERATIVE DIAGNOSES: * Cholelithiasis * Cholecystitis POSTOPERATIVE DIAGNOSES: * Cholelithiasis * Cholecystitis SURGEON: Arsh Jackson MD ANESTHESIA: General endotracheal. ANESTHESIOLOGIST: Dr. Hurley. PROCEDURE: Laparoscopy, laparoscopic cholecystectomy DESCRIPTION OF PROCEDURE: Under general endotracheal anesthesia with the patient's skin prepped and draped, a supraumbilical incision was made and Veress needle inserted into the peritoneal cavity by the hanging drop technique in order to establish pneumoperitoneum to 15 mmHg pressure by insufflation with carbon dioxide. With the abdomen fully distended, the needle was removed and replaced with a 5 mm trocar port through which a 0-degree viewing laparoscope was inserted and under direct vision, an additional 5 and 10 mm ports were inserted after thorough inspection of the peritoneal cavity, which revealed exuberant adhesions from previous operations. The pelvis and left lateral abdominal cavity were completely obliterated by adhesions. The camera navigated through and around numerous adhesions in the upper abdomen and subsequently, a 5-mm port was inserted through the right lateral abdominal wall and a 10-mm port through the subxiphoid midline skin carefully avoiding any injury to the adherent bowel. The gallbladder was affected by raging acute and chronic cholecystitis. It was intensely distended, fibrotic, with ligneous-like adhesions of the omentum to the gallbladder and to the portal structures. With a great deal of difficulty, the gallbladder was aspirated of pure pus. The pus was submitted for cultures and sensitivities. The gallbladder was then circumferentially dissected in the infundibular portion with much fibrotic tissue being densely adherent to the liver bed. The gallbladder was almost totally intrahepatic, which made the dissection even more difficult. The cystic duct was impacted with numerous palpable visible stones. The cystic duct was circumferentially dissected and skeletonized, traced into the hepatocystic triangle so as to minimize the potential for inadvertent injury to the common bile duct. The cystic artery was similarly skeletonized and traced into the hepatocystic triangle. Subsequently, these two structures were divided between metallic clips close to the gallbladder, again avoiding injury to the common bile duct. The gallbladder was subsequently resected from its intrahepatic position, which resulted in denuding some of the hepatic parenchyma. The manipulations of the gallbladder resulted in a small rent in the gallbladder wall through which numerous stones escaped and these were retrieved to the best of my ability. The patient's obesity and enlarged liver made the operation even more difficult. Following removal of the gallbladder from the peritoneal cavity by placement in a specimen extraction bag, the right upper quadrant was thoroughly irrigated. Irrigant was aspirated. Hemostasis was meticulously inspected and found to be complete. At the termination of the procedure, there was no bleeding from either the port sites or from the liver bed. A 10-mm Alexei-Campa drain was then placed underneath the right lobe of the liver and exteriorized through the 5-mm port site on the right flank, secured with a 2-0 nylon suture. Instrumentation was withdrawn. Pneumoperitoneum was evacuated. The fascia defect closed using #0 Vicryl and #0 Vicryl. Metallic skin kunal used for approximation of skin edges. The patient remained stable hemodynamically throughout the procedure, left the operating room following an accurate needle and sponge counts. No family members were waiting in the waiting area and the patient's daughter, Alayna, did not answer her phone at [phone]. MD SUSANNA Eisenberg/MO TID: [id number] RECEIPT: [id number]
[2024-12-16] MEDS ORDERED: CHOL20007 PO (11:18)
[2024-12-16] MEDS ORDERED: PRAV20TA3 PO (11:18)
--- NOTE | 2024-12-16 12:32 | DVHPN2 ---
Subjective The patient is seen and examined at bedside. Status post cholecystectomy. Tolerate clear liquid diet. Reviewed: Care Plan, H&P, Labs, Medications, Previous Orders, Radiology Changes from previous H/P or p: No Changes Objective Vitals Vital Signs Date Time Temp Pulse Resp B/P (MAP) Pulse Ox O2 Delivery O2 Flow Rate FiO2 12/16/24 10:42 123/65 12/16/24 10:15 97.6 86 18 91 97.6 12/16/24 09:35 Room Air 0 100 Intake/Output Intake and Output 12/16/24 07:00 Intake Total 525 ml Output Total 800 ml Balance -275 ml Intake Oral 0 ml IV Total 525 ml Output Urine Total 800 ml # Voids 2 # Bowel Movements 2 General Appearance: Alert, Oriented X3, Cooperative, No acute distress HEENT: Atraumatic, PERRLA, EOMI Neck: Supple Lungs: Clear to auscultation, Normal air movement Cardiovascular: Regular rate, Normal S1, Normal S2, No murmurs, Gallops, Rubs Abdomen: Normal bowel sounds, Soft, No tenderness Neuro: Cranial nerves 3-12 NL Psych/Mental Status: Mental status NL Medications Current Medications Medications Dose Ordered Sig/Christi Route Start Time Stop Time Status Last Admin Dose Admin Ceftriaxone Sodium 50 ml @ 100 mls/hr DAILY@09 IV 12/13/24 09:00 12/16/24 10:42 100 MLS/HR Empaglifozin 10 mg DAILY PO 12/13/24 10:00 12/16/24 10:41 10 MG Amlodipine Besylate 5 mg DAILY PO 12/13/24 10:00 12/16/24 10:42 5 MG Lisinopril 40 mg DAILY PO 12/13/24 10:00 12/16/24 10:41 40 MG Diagnostic Test (Pha) 1 strip Q6HR 12/13/24 06:00 12/16/24 05:47 1 STRIP Insulin Human Regular Q6HR SC 12/13/24 06:00 12/14/24 18:04 3 UNITS Dextrose 50 ml UD PRN IV 12/13/24 04:30 Acetaminophen/ Hydrocodone Bitart 1 tab Q4HP PRN PO 12/13/24 04:30 12/15/24 21:48 1 TAB Ondansetron HCl 4 mg Q4HP PRN IV 12/13/24 04:30 Acetaminophen 650 mg Q6HP PRN PO 12/13/24 04:30 12/14/24 05:20 650 MG Lactated Ringer's 1,000 ml @ 75 mls/hr [id number] IV 12/14/24 10:15 12/16/24 02:15 75 MLS/HR Hydromorphone HCl 1.5 mg Q4HPRN PRN IV 12/16/24 08:45 Metronidazole 100 ml @ 100 mls/hr Q8HR IV 12/16/24 14:00 Laboratory Results Laboratory Tests 12/16/24 04:59 Chemistry Test 12/16/24 04:59 Calcium Level 8.8 mg/dL (8.7-10.4) Urinalysis Test 12/16/24 05:20 Urine Color Yellow (Yellow) Urine Clarity Clear (Clear) Urine pH 5.5 (5.0-9.0) Urine Specific [place] 1.026 (1.001-1.035) Urine Protein Negative (Negative) Urine Ketones 2+ (Negative) H Urine Blood Negative /uL (Negative) Urine Nitrite Negative (Negative) Urine Bilirubin Negative (Negative) Urine Urobilinogen 8 mg/dL (Negative) H Urine Leukocyte Esterase Negative /uL (Negative) Urine RBC 6 /hpf (0 - 4) Urine Microscopic WBC 6 /HPF (0-5) H Urine Squamous Epithelial Cells Few /hpf (<5) Urine Bacteria None seen /hpf (None Seen) Urine Yeast (Budding) Occasional /hpf (None Urine Glucose 4+ mg/dL (Normal) H Labs and/or images reviewed: Labs reviewed by me Assessment/Plan Assessment/Plan 1. Acute cholecystitis 2. Leukocytosis likely reactive 3. Diabetes mellitus type 2 4. Hypertension 5. Dyslipidemia 6. Morbid obesity classIII Continuing current management. Continue SSI, encourage to be out of bed and ambulate. Encourage to use the bedside spirometer. Continue pain med, continue IV antibiotic. Diet advance per surgeon. This medical document was created using an electronic medical record system with [employer] direct computerized dictation system. Although this document has been carefully reviewed, there may still be some phonetic and typographical errors. These areas are purely typographical due to imperfections of the software programs, and do not reflect any compromise in the patient's medical care. Plan discussed with: Patient My Orders Orders - RYANNE MCCLURE MD Procedure Category Date Status Time Complete Blood Count LAB 12/17/24 Verified 05:00 Complete Blood Count LAB 12/18/24 Verified 05:00 Complete Blood Count LAB 12/19/24 Verified 05:00 Complete Blood Count LAB 12/20/24 Verified 05:00 Basic Metabolic Panel LAB 12/17/24 Verified 05:00 Basic Metabolic Panel LAB 12/18/24 Verified 05:00 Basic Metabolic Panel LAB 12/19/24 Verified 05:00 Basic Metabolic Panel LAB 12/20/24 Verified 05:00 Date of Service: Dec 16, 2024 Billing Provider: RYANNE MCCLURE MD Common Visit Codes: [id number] INP/OBS CARE(HIGH) RYANNE MCCLURE MD Dec 16, 2024 12:32
[2024-12-16] MEDS: HYDROmorphone HCL 2 MG/ML VL/or syr IV PRN (18:53)
[2024-12-17] VITALS (7 sets, daily range): BP systolic 114–147; BP diastolic 53–77; PULSE 51–111; RESP 14–17; TEMP 97.5–98.4; O2SAT 93–97
[2024-12-17 07:19] LABS: Hematocrit 32.7 % (36.0-46.0); Hemoglobin 10.8 g/dL (12.2-16.2); Mean Corpuscular Hemoglobin 29.8 pg (28.0-32.0); Mean Corpuscular Volume 90.2 fL (80.0-100.0); Nucleated Red Blood Cells % 0.0 %
[2024-12-17 07:20] LABS: Chloride 103 mmol/L (98-107); Potassium 4.3 mmol/L (3.5-5.1); Sodium 139 mmol/L (136-145)
[2024-12-17 07:21] LABS: Anion Gap 14 (5-15); Calcium 8.8 mg/dL (8.7-10.4); Carbon Dioxide 22 mmol/L (20-31)
[2024-12-17 07:26] LABS: BUN/Creatinine Ratio 15.7 (10.0-20.0); Blood Urea Nitrogen 14 mg/dL (9-23)
[2024-12-17 07:28] LABS: Glucose 117 mg/dL (74-106)
[2024-12-17 07:38] LABS: Bilirubin, Total 1.3 mg/dL (0.2-1.0)
--- NOTE | 2024-12-17 07:40 | ECG ---
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
--- NOTE | 2024-12-17 12:13 | DVHPN2 ---
Subjective The patient is seen and examined at bedside. Status post cholecystectomy. Tolerate clear liquid diet. The patient has lots of bleeding from her wound today. Reviewed: Care Plan, H&P, Labs, Medications, Previous Orders, Radiology Changes from previous H/P or p: No Changes Objective Vitals Vital Signs Date Time Temp Pulse Resp B/P (MAP) Pulse Ox O2 Delivery O2 Flow Rate FiO2 12/17/24 09:57 147/57 12/17/24 08:37 97.9 51 14 97 97.9 12/17/24 08:00 Room Air* 0 21 Intake/Output Intake and Output 12/17/24 07:00 Intake Total 2370 ml Output Total 1935 ml Balance 435 ml Intake Oral 970 ml IV Total 1400 ml Output Urine Total 1800 ml Drainage Total 135 ml # Voids 1 General Appearance: Alert, Oriented X3, Cooperative, No acute distress HEENT: Atraumatic, PERRLA, EOMI Neck: Supple Lungs: Clear to auscultation, Normal air movement Cardiovascular: Regular rate, Normal S1, Normal S2, No murmurs, Gallops, Rubs Abdomen: Normal bowel sounds, Soft, No tenderness Neuro: Cranial nerves 3-12 NL Psych/Mental Status: Mental status NL Medications Current Medications Medications Dose Ordered Sig/Christi Route Start Time Stop Time Status Last Admin Dose Admin Ceftriaxone Sodium 50 ml @ 100 mls/hr DAILY@09 IV 12/13/24 09:00 12/17/24 09:57 100 MLS/HR Empaglifozin 10 mg DAILY PO 12/13/24 10:00 12/17/24 09:57 10 MG Amlodipine Besylate 5 mg DAILY PO 12/13/24 10:00 12/17/24 09:57 5 MG Lisinopril 40 mg DAILY PO 12/13/24 10:00 12/17/24 09:57 40 MG Diagnostic Test (Pha) 1 strip Q6HR 12/13/24 06:00 12/17/24 05:53 1 STRIP Insulin Human Regular Q6HR SC 12/13/24 06:00 12/17/24 00:53 2 UNITS Dextrose 50 ml UD PRN IV 12/13/24 04:30 Acetaminophen/ Hydrocodone Bitart 1 tab Q4HP PRN PO 12/13/24 04:30 12/15/24 21:48 1 TAB Ondansetron HCl 4 mg Q4HP PRN IV 12/13/24 04:30 Acetaminophen 650 mg Q6HP PRN PO 12/13/24 04:30 12/14/24 05:20 650 MG Lactated Ringer's 1,000 ml @ 75 mls/hr [id number] IV 12/14/24 10:15 12/17/24 05:46 75 MLS/HR Hydromorphone HCl 1.5 mg Q4HPRN PRN IV 12/16/24 08:45 12/17/24 04:55 1.5 MG Metronidazole 100 ml @ 100 mls/hr Q8HR IV 12/16/24 14:00 12/17/24 05:45 100 MLS/HR Laboratory Results Laboratory Tests 12/17/24 06:36 Chemistry Test 12/17/24 06:36 Calcium Level 8.8 mg/dL (8.7-10.4) LFT Test 12/17/24 06:36 Total Bilirubin 1.3 mg/dL (0.2-1.0) H Urinalysis Test 12/16/24 05:20 Urine Color Yellow (Yellow) Urine Clarity Clear (Clear) Urine pH 5.5 (5.0-9.0) Urine Specific [place] 1.026 (1.001-1.035) Urine Protein Negative (Negative) Urine Ketones 2+ (Negative) H Urine Blood Negative /uL (Negative) Urine Nitrite Negative (Negative) Urine Bilirubin Negative (Negative) Urine Urobilinogen 8 mg/dL (Negative) H Urine Leukocyte Esterase Negative /uL (Negative) Urine RBC 6 /hpf (0 - 4) Urine Microscopic WBC 6 /HPF (0-5) H Urine Squamous Epithelial Cells Few /hpf (<5) Urine Bacteria None seen /hpf (None Seen) Urine Yeast (Budding) Occasional /hpf (None Urine Glucose 4+ mg/dL (Normal) H Microbiology Microbiology Date/Time Source Procedure Growth Status 12/16/24 08:24 Peritoneal Fluid Gram Stain - Final Resulted 12/16/24 08:24 Peritoneal Fluid Anaerobic Culture - Preliminary Resulted 12/16/24 08:24 Peritoneal Fluid Aerobic Culture - Preliminary Resulted Labs and/or images reviewed: Labs reviewed by me Assessment/Plan Assessment/Plan 1. Acute cholecystitis 2. Leukocytosis likely reactive 3. Diabetes mellitus type 2 4. Hypertension 5. Dyslipidemia 6. Morbid obesity classIII 7. Bleeding per wound, will change dressing and monitor H and H Continuing current management. Continue SSI, encourage to be out of bed and ambulate. Encourage to use the bedside spirometer. Continue pain med, continue IV antibiotic. Diet advance per surgeon. This medical document was created using an electronic medical record system with [employer] direct computerized dictation system. Although this document has been carefully reviewed, there may still be some phonetic and typographical errors. These areas are purely typographical due to imperfections of the software programs, and do not reflect any compromise in the patient's medical care. Plan discussed with: Patient Date of Service: Dec 17, 2024 Billing Provider: RYANNE MCCLURE MD Common Visit Codes: [id number] INP/OBS CARE(HIGH) RYANNE MCCLURE MD Dec 17, 2024 12:13
--- NOTE | 2024-12-17 13:49 | DVHPN2 ---
Progress Note Date Seen: Dec 17, 2024 Medical Necessity Reason Pt with a Central, PICC or Fol: No Objective vital signs Vital Sign Date Time Temp Pulse Resp B/P (MAP) Pulse Ox O2 Delivery O2 Flow Rate FiO2 12/17/24 12:36 98.0 75 16 130/71 (90) 93 98.0 12/17/24 08:00 Room Air* 0 21 Total Intake and Output 12/16/24 12/16/24 12/17/24 15:00 23:00 07:00 Intake Total 100 ml 1450 ml 820 ml Output Total 60 ml 75 ml 1800 ml Balance 40 ml 1375 ml -980 ml medications Current Medications Medications Dose Ordered Sig/Christi Route Start Time Stop Time Status Last Admin Dose Admin Ceftriaxone Sodium 50 ml @ 100 mls/hr DAILY@09 IV 12/13/24 09:00 12/17/24 09:57 100 MLS/HR Empaglifozin 10 mg DAILY PO 12/13/24 10:00 12/17/24 09:57 10 MG Amlodipine Besylate 5 mg DAILY PO 12/13/24 10:00 12/17/24 09:57 5 MG Lisinopril 40 mg DAILY PO 12/13/24 10:00 12/17/24 09:57 40 MG Diagnostic Test (Pha) 1 strip Q6HR 12/13/24 06:00 12/17/24 12:00 1 STRIP Insulin Human Regular Q6HR SC 12/13/24 06:00 12/17/24 00:53 2 UNITS Dextrose 50 ml UD PRN IV 12/13/24 04:30 Acetaminophen/ Hydrocodone Bitart 1 tab Q4HP PRN PO 12/13/24 04:30 12/15/24 21:48 1 TAB Ondansetron HCl 4 mg Q4HP PRN IV 12/13/24 04:30 Acetaminophen 650 mg Q6HP PRN PO 12/13/24 04:30 12/14/24 05:20 650 MG Lactated Ringer's 1,000 ml @ 75 mls/hr [id number] IV 12/14/24 10:15 12/17/24 05:46 75 MLS/HR Hydromorphone HCl 1.5 mg Q4HPRN PRN IV 12/16/24 08:45 12/17/24 04:55 1.5 MG Metronidazole 100 ml @ 100 mls/hr Q8HR IV 12/16/24 14:00 12/17/24 05:45 100 MLS/HR laboratory and microbiology Laboratory Tests 12/17/24 06:36 Test 12/17/24 06:36 Range/Units Serum Glucose 117 H 74-106 mg/dL Problem List/Assessment/Plan Problem List/Assessment/Plan 12/15/24 LFT'S ELEVATED, MORE PAIN , ABDOMEN NON TENDER, HIDA SCAN INDICATES CHOLECYSTITIS WITH SUSPICION OF BILIARY OBSTRUCTION, MRCP SHOWS NO EVIDENCE OF CHOLEDOCHOLITHIASIS. LAPAROSCOPIC POSSIBLY OPEN CHOLECYSTECTOMY,RISKS AND COMPLICATIONS EXPLAINED IN DETAIL TO PATIENT IN [place]. WILL KEEP NPO TILL OPERATION IN AM 12/17/24 PASSING FLATUS, UPPER LEFT QUADRANT PAIN HAS DISSIPATED, ABDOMEN IS APPROPRIATELY TENDER, WOUND DRESSINGS AR CLEAN AND DRY, DRAINAGE IS NON BILIOUS,MODERATE IN VOLUME. ADVANCE DIET, DISCHARGE TOMORROW, SHE MUST AMBULATE Q 4 HOURS Plan discussed with: Patient, Other Dietary Evaluation Review Comments: 1. CCHO-60 Low fat low cholesterol 2GNA cardiac diet 2. Take Walks aftr finishing each meal 3. Wt management upon D/C Expected Outcomes/Goals: controlled DM, gradual wt loss RADHA GENAO MD Dec 17, 2024 13:49
--- NOTE | 2024-12-17 13:53 | DVHPN2 ---
Progress Note Date Seen: Dec 17, 2024 Medical Necessity Reason Pt with a Central, PICC or Fol: No Objective vital signs Vital Sign Date Time Temp Pulse Resp B/P (MAP) Pulse Ox O2 Delivery O2 Flow Rate FiO2 12/17/24 12:36 98.0 75 16 130/71 (90) 93 98.0 12/17/24 08:00 Room Air* 0 21 Total Intake and Output 12/16/24 12/16/24 12/17/24 15:00 23:00 07:00 Intake Total 100 ml 1450 ml 820 ml Output Total 60 ml 75 ml 1800 ml Balance 40 ml 1375 ml -980 ml medications Current Medications Medications Dose Ordered Sig/Christi Route Start Time Stop Time Status Last Admin Dose Admin Ceftriaxone Sodium 50 ml @ 100 mls/hr DAILY@09 IV 12/13/24 09:00 12/17/24 09:57 100 MLS/HR Empaglifozin 10 mg DAILY PO 12/13/24 10:00 12/17/24 09:57 10 MG Amlodipine Besylate 5 mg DAILY PO 12/13/24 10:00 12/17/24 09:57 5 MG Lisinopril 40 mg DAILY PO 12/13/24 10:00 12/17/24 09:57 40 MG Diagnostic Test (Pha) 1 strip Q6HR 12/13/24 06:00 12/17/24 12:00 1 STRIP Insulin Human Regular Q6HR SC 12/13/24 06:00 12/17/24 00:53 2 UNITS Dextrose 50 ml UD PRN IV 12/13/24 04:30 Acetaminophen/ Hydrocodone Bitart 1 tab Q4HP PRN PO 12/13/24 04:30 12/15/24 21:48 1 TAB Ondansetron HCl 4 mg Q4HP PRN IV 12/13/24 04:30 Acetaminophen 650 mg Q6HP PRN PO 12/13/24 04:30 12/14/24 05:20 650 MG Lactated Ringer's 1,000 ml @ 75 mls/hr [id number] IV 12/14/24 10:15 12/17/24 05:46 75 MLS/HR Hydromorphone HCl 1.5 mg Q4HPRN PRN IV 12/16/24 08:45 12/17/24 04:55 1.5 MG Metronidazole 100 ml @ 100 mls/hr Q8HR IV 12/16/24 14:00 12/17/24 05:45 100 MLS/HR laboratory and microbiology Laboratory Tests 12/17/24 06:36 Test 12/17/24 06:36 Range/Units Serum Glucose 117 H 74-106 mg/dL Problem List/Assessment/Plan Problem List/Assessment/Plan 12/15/24 LFT'S ELEVATED, MORE PAIN , ABDOMEN NON TENDER, HIDA SCAN INDICATES CHOLECYSTITIS WITH SUSPICION OF BILIARY OBSTRUCTION, MRCP SHOWS NO EVIDENCE OF CHOLEDOCHOLITHIASIS. LAPAROSCOPIC POSSIBLY OPEN CHOLECYSTECTOMY,RISKS AND COMPLICATIONS EXPLAINED IN DETAIL TO PATIENT IN [place]. WILL KEEP NPO TILL OPERATION IN AM 12/17/24 PASSING FLATUS, UPPER LEFT QUADRANT PAIN HAS DISSIPATED, ABDOMEN IS APPROPRIATELY TENDER, WOUND DRESSINGS AR CLEAN AND DRY, DRAINAGE IS NON BILIOUS,MODERATE IN VOLUME. ADVANCE DIET, DISCHARGE TOMORROW, SHE MUST AMBULATE Q 4 HOURS Plan discussed with: Patient, Other Dietary Evaluation Review Comments: 1. CCHO-60 Low fat low cholesterol 2GNA cardiac diet 2. Take Walks aftr finishing each meal 3. Wt management upon D/C Expected Outcomes/Goals: controlled DM, gradual wt loss RADHA GENAO MD Dec 17, 2024 13:53
[2024-12-18] VITALS (7 sets, daily range): BP systolic 108–137; BP diastolic 66–88; PULSE 69–82; RESP 16–22; TEMP 36.3; O2SAT 92–99
[2024-12-18 06:06] LABS: Hematocrit 30.6 % (36.0-46.0); Hemoglobin 10.0 g/dL (12.2-16.2); Mean Corpuscular Hemoglobin 29.1 pg (28.0-32.0); Mean Corpuscular Volume 89.5 fL (80.0-100.0); Nucleated Red Blood Cells % 0.1 %
[2024-12-18 06:15] LABS: Chloride 104 mmol/L (98-107); Potassium 3.6 mmol/L (3.5-5.1); Sodium 142 mmol/L (136-145)
[2024-12-18 06:16] LABS: Anion Gap 13 (5-15); Carbon Dioxide 25 mmol/L (20-31)
[2024-12-18 06:21] LABS: BUN/Creatinine Ratio 15.1 (10.0-20.0); Blood Urea Nitrogen 11 mg/dL (9-23); Glucose 97 mg/dL (74-106)
[2024-12-18 06:26] LABS: Calcium 8.6 mg/dL (8.7-10.4)
--- NOTE | 2024-12-18 09:53 | DVHPN2 ---
Progress Note Date Seen: Dec 18, 2024 Medical Necessity Reason Pt with a Central, PICC or Fol: No Objective vital signs Vital Sign Date Time Temp Pulse Resp B/P (MAP) Pulse Ox O2 Delivery O2 Flow Rate FiO2 12/18/24 09:14 98.0 78 18 137/88 (104) 94 98.0 12/18/24 00:55 Facial BiPAP Mask 35 12/17/24 20:00 0 Total Intake and Output 12/17/24 12/17/24 12/18/24 15:00 23:00 07:00 Intake Total 50 ml 700 ml 750 ml Output Total 900 ml Balance 50 ml -200 ml 750 ml medications Current Medications Medications Dose Ordered Sig/Christi Route Start Time Stop Time Status Last Admin Dose Admin Ceftriaxone Sodium 50 ml @ 100 mls/hr DAILY@09 IV 12/13/24 09:00 12/17/24 09:57 100 MLS/HR Empaglifozin 10 mg DAILY PO 12/13/24 10:00 12/17/24 09:57 10 MG Amlodipine Besylate 5 mg DAILY PO 12/13/24 10:00 12/17/24 09:57 5 MG Lisinopril 40 mg DAILY PO 12/13/24 10:00 12/17/24 09:57 40 MG Diagnostic Test (Pha) 1 strip Q6HR 12/13/24 06:00 12/18/24 05:11 1 STRIP Insulin Human Regular Q6HR SC 12/13/24 06:00 12/17/24 17:18 2 UNITS Dextrose 50 ml UD PRN IV 12/13/24 04:30 Acetaminophen/ Hydrocodone Bitart 1 tab Q4HP PRN PO 12/13/24 04:30 12/17/24 19:10 1 TAB Ondansetron HCl 4 mg Q4HP PRN IV 12/13/24 04:30 Acetaminophen 650 mg Q6HP PRN PO 12/13/24 04:30 12/14/24 05:20 650 MG Lactated Ringer's 1,000 ml @ 75 mls/hr [id number] IV 12/14/24 10:15 12/17/24 05:46 75 MLS/HR Hydromorphone HCl 1.5 mg Q4HPRN PRN IV 12/16/24 08:45 12/17/24 04:55 1.5 MG Metronidazole 100 ml @ 100 mls/hr Q8HR IV 12/16/24 14:00 12/18/24 05:06 100 MLS/HR laboratory and microbiology Laboratory Tests 12/18/24 04:52 Test 12/18/24 04:52 Range/Units Serum Glucose 97 74-106 mg/dL Problem List/Assessment/Plan Problem List/Assessment/Plan 12/15/24 LFT'S ELEVATED, MORE PAIN , ABDOMEN NON TENDER, HIDA SCAN INDICATES CHOLECYSTITIS WITH SUSPICION OF BILIARY OBSTRUCTION, MRCP SHOWS NO EVIDENCE OF CHOLEDOCHOLITHIASIS. LAPAROSCOPIC POSSIBLY OPEN CHOLECYSTECTOMY,RISKS AND COMPLICATIONS EXPLAINED IN DETAIL TO PATIENT IN [place]. WILL KEEP NPO TILL OPERATION IN AM 12/17/24 PASSING FLATUS, UPPER LEFT QUADRANT PAIN HAS DISSIPATED, ABDOMEN IS APPROPRIATELY TENDER, WOUND DRESSINGS AR CLEAN AND DRY, DRAINAGE IS NON BILIOUS,MODERATE IN VOLUME. ADVANCE DIET, DISCHARGE TOMORROW, SHE MUST AMBULATE Q 4 HOURS 12/18/24 FEELS WELL, TOLERATING PO, NO NAUSEA, STILL HAS ADRIENNE CEBALLOS DC. DISCHARGE INSTRUCTIONS GIVEN, SHE MAY SHOWER AFTER 72 MORE HOUTRS AND EAT REGULAR DIET, SHE IS TO RETURN TO SEE ME IN THE OFFICE IN ABOUT 10 DAYS, SHE HAS BEEN INSTRUCTED IN THE CARE OF [place] [place]. Plan discussed with: Patient Dietary Evaluation Review Comments: 1. CCHO-60 Low fat low cholesterol 2GNA cardiac diet 2. Take Walks aftr finishing each meal 3. Wt management upon D/C Expected Outcomes/Goals: controlled DM, gradual wt loss RADHA GENAO MD Dec 18, 2024 09:53
--- NOTE | 2024-12-18 14:53 | DVHDS2 ---
Discharge Summary Date of Admission Dec 13, 2024 at 04:16 Date of Discharge: Dec 18, 2024 Admitting Diagnosis 1. Acute cholecystitis 2. Leukocytosis likely reactive 3. Diabetes mellitus type 2 4. Hypertension 5. Dyslipidemia 6. Morbid obesity classIII Labs/Diagnostic Data: Laboratory Results Test 12/18/24 12:31 12/18/24 04:52 12/17/24 06:36 12/16/24 05:20 POC Glucose 161 mg/dl (70-106) White Blood Count 7.5 10^3/uL (4.4-10.8) Red Blood Count 3.42 10^6/uL (4.0-5.20) Hemoglobin 10.0 g/dL (12.2-16.2) Hematocrit 30.6 % (36.0-46.0) Mean Corpuscular Volume 89.5 fL (80.0-100.0) Mean Corpuscular Hemoglobin 29.1 pg (28.0-32.0) Mean Corpuscular Hemoglobin Concent 32.5 g/dL (32.0-36.0) Red Cell Distribution Width 15.6 % (11.8-14.3) Platelet Count 262 10^3/uL (140-450) Mean Platelet Volume 10.6 fL (6.9-10.8) Neutrophils (%) (Auto) 59.5 % (37.0-80.0) Lymphocytes (%) (Auto) 28.0 % (10.0-50.0) Monocytes (%) (Auto) 10.2 % (0.0-12.0) Eosinophils (%) (Auto) 1.7 % (0.0-7.0) Basophils (%) (Auto) 0.6 % (0.0-2.0) Neutrophils # (Auto) 4.5 10 ^3/uL (1.6-8.6) Lymphocytes # (Auto) 2.1 10 ^3/uL (0.4-5.4) Monocytes # (Auto) 0.8 10 ^3/uL (0-1.3) Eosinophils # (Auto) 0.1 10 ^3/uL (0-0.8) Basophils # (Auto) 0 10 ^3/uL (0-0.2) Nucleated Red Blood Cells 0.1 % Sodium Level 142 mmol/L (136-145) Potassium Level 3.6 mmol/L (3.5-5.1) Chloride Level 104 mmol/L (98-107) Carbon Dioxide Level 25 mmol/L (20-31) Anion Gap 13 (5-15) Blood Urea Nitrogen 11 mg/dL (9-23) Creatinine 0.73 mg/dL (0.550-1.02) Glomerular Filtration Rate Calc 94 mL/min (>90) BUN/Creatinine Ratio 15.1 (10.0-20.0) Serum Glucose 97 mg/dL (74-106) Calcium Level 8.6 mg/dL (8.7-10.4) Total Bilirubin 1.3 mg/dL (0.2-1.0) Urine Color Yellow (Yellow) Urine Clarity Clear (Clear) Urine pH 5.5 (5.0-9.0) Urine Specific [place] 1.026 (1.001-1.035) Urine Protein Negative (Negative) Urine Ketones 2+ (Negative) Urine Blood Negative /uL (Negative) Urine Nitrite Negative (Negative) Urine Bilirubin Negative (Negative) Urine Urobilinogen 8 mg/dL (Negative) Urine Leukocyte Esterase Negative /uL (Negative) Urine RBC 6 /hpf (0 - 4) Urine Microscopic WBC 6 /HPF (0-5) Urine Squamous Epithelial Cells Few /hpf (<5) Urine Bacteria None seen /hpf (None Seen) Urine Yeast (Budding) Occasional /hpf (None Urine Glucose 4+ mg/dL (Normal) Test 12/14/24 10:40 12/14/24 07:10 12/12/24 19:50 Prothrombin Time 11.6 sec (9.3-11.8) Prothrombin Time INR 1.11 (0.9-1.15) Activated Partial Thromboplast Time 29.3 SEC (24.5-34.5) Aspartate Amino Transferase (AST) 247 U/L (13-40) Alanine Aminotransferase (ALT) 421 U/L (7-40) Alkaline Phosphatase 546 U/L (46-116) Total Protein 6.6 g/dL (5.7-8.2) Albumin 3.8 g/dL (3.2-4.8) Lipase 48 U/L (12-53) Other Laboratory Tests 12/18/24 04:52 Brief Hx & Hospital Course: This is a 59 years old female come to emergency department because severe abdominal pain. The patient had two days' history of intermittent epigastric abdominal pain. Currently she had no fever or chill. She reports nausea without vomitus. The patient was found to have cholelithiasis per ultrasound of her right upper quadrant abdomen. The gallbladder wall also thickening. Is indicated of acute cholecystitis. The patient subsequently had surgery done. The patient recover well after surgery. She was able to pass flatus and bowel movement. The patient will be discharged home today. Advised the patient to follow up with primary care physician 1-2 weeks. Follow up with surgeon per schedule. Do not lift or hold any object more than 10 lb for two weeks. Activity as tolerated. Diet per home diet. Physical exam: HEENT: Normocephalic atraumatic pupils equal react to light and accommodation. Extraocular muscles intact, conjunctiva pink, oropharynx moist, no thrush, no exudate. Lymphatic: No lymphadenopathy Cardiovascular exam: S1, S2 was heard. No murmurs, rubs, gallops Lung: Clear on auscultation bilaterally, no wheeze, rale, rhonchi. GI: Abdominal soft, nondistended, nontenderness, positive bowel sounds. Extremity: No crepitus, cyanosis, edema. Pedal pulses present bilateral. Full range of motion. Skin: Normal turgor, no rash. Psych: Alert, oriented x3. Neurology: No focal deficits, cranial nerve II to XII grossly intact. This medical document was created using an electronic medical record system with [employer] direct computerized dictation system. Although this document has been carefully reviewed, there may still be some phonetic and typographical errors. These areas are purely typographical due to imperfections of the software programs, and do not reflect any compromise in the patient's medical care. Condition at Discharge: Stable Final Diagnosis/Problems List 1. Acute cholecystitis 2. Leukocytosis likely reactive 3. Diabetes mellitus type 2 4. Hypertension 5. Dyslipidemia 6. Morbid obesity classIII Discharge Disposition: Home Discharge Instruct/Medications Scheduled Amlodipine Besylate (Amlodipine Besylate), 1 TAB PO DAILY, (Reported) Aspirin (Aspirin Low Dose), 1 TAB PO DAILY, (Reported) Cholecalciferol (Vitamin D3), 1 TAB PO DAILY, (Reported) Empagliflozin (Jardiance), 1 TAB PO DAILY, (Reported) Fenofibrate (Fenofibrate), 1 TAB PO DAILY, (Reported) Glipizide (Glipizide Er), 1 TAB PO DAILY, (Reported) Lisinopril (Lisinopril), 1 TAB PO DAILY, (Reported) Loratadine (Claritin Tablet), 1 TAB PO DAILY, (Reported) Metronidazole (Metronidazole), 500 MG PO Q8HR Pravastatin Sodium (Pravachol Tablet), 40 MG PO DAILY, (Reported) Scheduled PRN Hydrocodone-Acetaminophen (Hydrocodone Bitartrate/AC 5-325 mg), 1 TAB PO Q4HP PRN Ondansetron Odt 4MG Tab (Zofran Po), 4 MG PO Q8HPRN PRN Discharge Statement: "Patient was advised to return to the ER or call 911 if any headaches, dizziness, shortness of breath, chest pain, abdominal pain, bleeding, fevers, or worsening of medical condition. Patient was counseled about treatment plan, medications, possible side effects, patientverbalized understanding. All questions were answered to the best of my ability. This discharge took greater then 30 minutes in planning, reviewing documentation, counseling the patient, and discussing with other team members." ASSESSMENT ASSESSMENT Assessment Date of Service: Dec 18, 2024 Billing Provider: RYANNE MCCLURE MD Common Visit Codes: 63842-TAV/OBS DISCH DAY >30min RYANNE MCCLURE MD Dec 18, 2024 14:53
[2024-12-18] MEDS ORDERED: HYDR-4902 PO (14:55)
[2024-12-18] MEDS ORDERED: MET500T PO (14:55)
[2024-12-18] MEDS ORDERED: ZOFR4T PO (14:55)
[2024-12-18] MEDS: metroNIDAZOLE 500 MG TAB PO SCH (15:54)
--- NOTE | 2024-12-19 09:48 | ECG ---
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
== END 2024-12-18 20:41 | disposition home or self-care (01) | DRG 263 ==
LOC: ER 18:08 → EDBD 18:08 → OVERFLOW 12-13 04:16 → WEST WING 12-13 22:22
PROVIDERS: ADMIT Internal Medicine; ATTEND Internal Medicine
PROC: 0FT44ZZ Resection of Gallbladder, Percutaneous Endoscopic Approach (ICD-10-PCS; principal; 2024-12-16 07:32)
PROC: 5A09357 Assistance with Respiratory Ventilation, Less than 24 Consecutive Hours, Continuous Positive Airway Pressure (ICD-10-PCS; 2024-12-18)
DX: K80.12 Calculus of gallbladder with acute and chronic cholecystitis without obstruction (principal); R71.0 Precipitous drop in hematocrit; E11.65 Type 2 diabetes mellitus with hyperglycemia; I10 Essential (primary) hypertension; R74.01 Elevation of levels of liver transaminase levels; K66.0 Peritoneal adhesions (postprocedural) (postinfection); E78.5 Hyperlipidemia, unspecified; G89.4 Chronic pain syndrome; E66.813 Obesity, class 3; K59.00 Constipation, unspecified; M81.0 Age-related osteoporosis without current pathological fracture; N73.6 Female pelvic peritoneal adhesions (postinfective); Z88.5 Allergy status to narcotic agent; Z90.721 Acquired absence of ovaries, unilateral; Z68.41 Body mass index [BMI] 40.0-44.9, adult; Z79.84 Long term (current) use of oral hypoglycemic drugs; Z79.899 Other long term (current) drug therapy; Z79.82 Long term (current) use of aspirin
CPT/HCPCS: 36415; 71045; 74177; 74181; 76705; 78226; 80048; 80053; 81001; 82247; 82962; 83690; 85025; 85610; 85730; 86850; 86900; 86901; 87070; 87075; 87077; 87186; 87205; 93005; 94660; 96374; 96375; G0378; J0131; J1100; J1815; J1885; J2003; J2250; J2405; J2543; J3490